=== PATIENT | male | born 1960 | race Caucasian/White ===

== ENCOUNTER 2016-11-05 18:27 | Inpatient (IN) | payer MEDICAID ==
[~2016-11-05] VITALS: Ht 170.1 cm; Wt 74.8 kg
--- NOTE | ~2016-11-05 | CON ---
[place], [place] REPORT OF CONSULTATION NAME: ADAM NICHOLAS [facility] #: [id number] UNIT #: [id number] ROOM: 416 DOCTOR: SHAMEKA GARCIA MD BIRTHDATE: [birth year] DOS: 11/06/2016 HISTORY OF PRESENT ILLNESS: The patient is a 56-year-old male patient who actually was told by a physician information services assistant who follows him in his home that his potassium is going up and that his kidney may be affected and that he may go into congestive heart failure, so that he came here. The reason I am consulted is the patient is complaining of abdominal pain, right upper quadrant from almost a month or two months. It comes and goes. He denies any association with food or any coughing or bending down or walking. There is no nausea, no vomiting, no fever, no history of gallbladder disease. He also has history of hernia on his abdominal wall and upper portion of the abdomen, which again according to him does not bother him too much, occasionally it hurts. He had an extensive workup done last night and yesterday with ultrasound of gallbladder, which report was okay and CT of the chest and abdomen unremarkable. PAST MEDICAL HISTORY: He has history of diabetes, history of heart problem and hypertension. He denies any history of any lung issues. ALLERGIES: According to him, no known allergies. FAMILY HISTORY: Unremarkable. SOCIAL HISTORY: Unremarkable. PHYSICAL EXAMINATION: GENERAL: Revealed the patient seems to be in no acute distress. VITAL SIGNS: Have been okay, although it may be that a little bit the heart rate is up. Respiration he seems to be dyspneic at least when he is walking. It looks like to me that the right eye may be artificial eye. LUNGS: Clear to auscultation and percussion. HEART: Sounds to me look okay, I do not hear a murmur. ABDOMEN: Protuberant. Shows small scars on upper portion of the abdomen. He is very tender in right upper quadrant, some rebound, no rigidity, no muscle guarding. No hepatosplenomegaly. There is obvious hernia in the epigastric area, feels soft and mushy. Also, he is tender in the left lower quadrant without much rebound or muscle guarding. RECTAL: Not done. EXTREMITIES: No pedal edema. LABORATORY DATA: Showed leukocytosis. His potassium is still up to 4.5. His bilirubin is normal. His lipase is 1142. IMPRESSION: Abdominal pain, right upper quadrant and left lower quadrant and a ____ small abdominal wall hernia, epigastrium. Ultrasound has been negative. I reviewed the CAT scan myself, to me it looks like he may have one area that looks like may be diverticulitis. So from my stand plan for this patient is a CCK-HIDA scan to see if there is any hyper or hypo function because clinically looks like his gallbladder, but all the radiological workup so far is negative. From my standpoint, we will treat him like empirically for possible diverticulitis. Once we get the CCK-HIDA scan, then I think we will go from [place], [place] REPORT OF CONSULTATION NAME: ADAM NICHOLAS UNIT #: [id number] ROOM: [facility] DOCTOR: SHAMEKA GARCIA MD BIRTHDATE: [birth year] there. We will follow with you. As for the abdominal wall hernia epigastrium, I think it is up to the patient whether he wants to get it fixed or not. Shameka Garcia MD CM:CONSTR:REPORT OF CONSULTATION 0959 11/07/16 0203 interface
--- NOTE | ~2016-11-05 | PR ---
[place], [place] PROGRESS NOTE [id number] UNIT #: [id number] ROOM: 416 DOCTOR: SHAMEKA GARCIA MD BIRTHDATE: [birth year] DOS: 11/07/2016 The patient was seen for reason of right upper quadrant abdominal pain, left lower quadrant abdominal pain. So far all the x-rays are unremarkable actually. Pain is persistent on the right upper quadrant. He is tender in the left lower quadrant. From my stand point, we have to rule out either biliary dyskinesia or hyperactive gallbladder. Clinically, I think that is what looks like. CCK HIDA scan has been ordered for tomorrow and hopefully would be done and then go from there. Overall, I do not see any acute abdomen at this time, but if things change then we will act accordingly. Shameka Garcia MD CM:PNTRANS [id number] SHAMEKA GARCIA MD 11/08/16 0117 interface
[~2016-11-05 18:27] MED LIST: ABILIFY5 MG PO; ACIPHEX20 MG PO; AMBIEN10 MG PO; AMOXICILLIN500 MG PO; ANTIVERT25 MG PO; ASPIR LOW81 MG PO; ASPIRIN ADULT L81 M2 PO; ASPIRIN ENTERIC81 M1 PO; ASPIRIN81 M1 PO; ATORVASTATIN CA80 M1 PO; Aciphex20 MG PO; BACTRIM DS 8001 TA1 PO; BUSPIRONE HCL10 MG PO; CARDIZEM60 MG PO; CEPHALEXIN500 M1 PO; CIPRO500 MG PO; CIPROFLOXACIN500 MG PO; CLONAZEPAM0.5 M2 PO; CLONAZEPAM1 MG PO; COMBIVENT RESPIM4 GM INH; COMPAZINE10 MG PO; CORDROL20 MG PO; DARVOCET N 1001 TAB PO; DOXYCYCLINE100 M3; EC NAPROSYN500 MG PO; EFFEXOR XR75 M1 PO; ENALAPRIL20 MG PO; ERY-TAB500 M1 PO; FIORICET 325 MG1 TAB PO; FLAGYL500 MG PO; Fioricet 325 MG1 TAB PO; GABAPENTIN400 MG PO; GABAPENTIN600 MG PO; GLIPIZIDE5 MG PO; GRALISE300 M1 PO; HUMALOG100 U/ML SC; HYDROCODONE BIT1 T11 PO; IBU800 M1 PO; INSULATARD H100 U/ML; LANTUS100 U/ML SC; LEVALBUTER1.25 MG/0. IH; LEVOFLOXACIN500 MG PO; LEXAPRO10 MG PO; LISINOPRIL2.5 MG PO; LISINOPRIL5 MG PO; LOMOTIL 0.025 M1 TA1 PO; MAGNESIUM OXID400 MG PO; MEDROL DOSEPAK4 MG PO; METFORMIN1000 MG PO; METFORMIN500 MG PO; METHOCARBAMOL750 M1 PO; METRONIDAZOLE500 M1 PO; MOBIC7.5 MG PO; MOTRIN800 MG PO; NABUMETONE500 M1 PO; NAPROSYN500 MG PO; NAPROXEN500 M1 PO; NATURE'S BLEND F1 MG PO; NEURONTIN300 MG PO; NEURONTIN400 MG PO; NITRO; NITROGLYCERIN SL; NITROGLYCERIN0.4 MG SL; NITROSTAT0.4 MG PO; NITROSTAT0.4 MG SL; NORCO 10-325 T1 EACH PO; NORCO 325 MG-101 TAB PO; NORCO 5-325 TA1 EACH PO; NOVOLIN 70/30 701 EA SC; NOVOLIN 70100 UNIT/1 SC; NOVOLOG 70/30 M10 ML SC; OMEPRAZOLE40 MG PO; PEPCID20 MG PO; PERCOCET 325 MG1 TA2 PO; PERCOCET 325 MG1 TAB PO; PHENERGAN25 M1 PO; PLAVIX75 M1 PO; PRAVACHOL80 M1 PO; PREVACID30 M1; PRILOSEC10 M1 PO; PRILOSEC20 MG PO; PRILOSEC40 M1 PO; PRINIVIL5 M1 PO; REQUIP0.5 MG PO; RESTORIL15 MG PO; ROBAXIN-750750 MG PO; ROBAXIN500 MG PO; ROPINIROLE HYD0.5 MG PO; ROPINIROLE HYDRO1 MG PO; SERTRALINE HYD100 MG PO; STOOL SOFTENER100 M3 PO; TOPROL XL25 MG PO; TOPROL XL50 M1 PO; TRAMADOL HCL50 MG PO; TRAZADONE HYDR100 MG PO; TRAZODONE100 MG PO; TRICOR145 MG PO; TRILIPIX45 MG PO; TYLENOL W/CODEI1 TA2 PO; ULTRAM50 MG PO; VANCOMYCIN IV; VANCOMYCIN1.25 GM/25 IV; VIBRAMYCIN100 MG PO; VICO10300 PO; VICODIN 5/500 505 MG PO; VICODIN ES 7501 TAB PO; VITAMIN C500 M4 PO; VITAMIN D50000 UNIT PO; ZANTAC150 MG PO; ZOFRAN ODT4 MG SL; ZOLOFT100 MG PO; Zofran4 MG PO
[2016-11-05 18:53] VITALS: BP 136/90
[2016-11-05] MEDS ORDERED: TYLENOL W/CODEI1 TA4 PO (18:59)
[2016-11-05 20:11] LABS: BASO # 0.1 10*3/uL (0.0-0.1); BASO % 0.7 % (0.0-1.0); EOS # 0.6 10*3/uL (0.0-0.4); EOS % 3.5 % (1.0-4.0); HEMATOCRIT 39.1 % (42.0-52.0); HEMOGLOBIN 12.8 g/dl (14.0-18.0); IG # 0.1 10*3/uL (0.0-0.1); LYMPH # 3.7 10*3/uL (1.3-4.4); LYMPH % 20.6 % (27.0-41.0); MEAN CORPUSCULAR HGB 30.8 pg (27.0-31.0); MEAN CORPUSCULAR HGB CONC 32.7 g/dl (33.0-37.0); MEAN PLATELET VOLUME 11.1 fl (9.6-12.3); MONO # 1.3 10*3/uL (0.1-1.0); MONO % 7.3 % (3.0-9.0); NEUT # 12.1 10*3/uL (2.3-7.9); NEUT % 67.1 % (47.0-73.0); PLATELET COUNT AUTOMATED 320 10*3/uL (130-400); RED BLOOD COUNT 4.16 10*6/uL (4.50-5.90); RED CELL DISTRI WIDTH 14.2 % (0-14.5)
[2016-11-05 20:20] LABS: INTERNATIONAL NORM RATIO 0.9 (2.0-3.5); PROTHROMBIN TIME 9.9 SECONDS (9.0-12.4)
[2016-11-05 20:28] LABS: ALBUMIN 3.2 gm/dl (3.1-4.5); BILIRUBIN, TOTAL 0.2 mg/dl (0.2-1.0); POTASSIUM 5.8 mmol/L (3.5-5.1); TOTAL PROTEIN 8.1 gm/dL (6.4-8.2)
[2016-11-05 20:29] LABS: CKMB 2.8 ng/ml (0.5-3.6); CPK 64 U/L (39-308); MAGNESIUM 1.9 mg/dL (1.5-2.1)
[2016-11-05 20:30] LABS: TROPONIN I < 0.015 ng/ml (<0.5)
[2016-11-05 21:27] LABS: BILIRUBIN NEGATIVE (NEGATIVE); BLOOD NEGATIVE (NEGATIVE); CLARITY CLEAR (CLEAR); COLOR YELLOW (YELLOW); GLUCOSE NEGATIVE (NEGATIVE); KETONE NEGATIVE (NEGATIVE); LEUKO ESTERASE NEGATIVE (NEGATIVE); NITRITE NEGATIVE (NEGATIVE); PROTEIN NEGATIVE (NEGATIVE); SPECIFIC GRAVITY <= 1.005 (1.005-1.030); UROBILINOGEN 0.2 E.U./dl (0.2-1.0)
[2016-11-05 21:35] LABS: RBC 0-2 rbc/hpf (0-2); URINE REFLEX COMMENT NO (NO); WBC 0-2 wbc/hpf (0-5)
[2016-11-05 22:30] VITALS: BP 132/90
[2016-11-06] VITALS (8 sets, daily range): BP systolic 96–139; BP diastolic 43–84
[2016-11-06 00:50] LABS: CKMB 2.5 ng/ml (0.5-3.6); CPK 52 U/L (39-308)
[2016-11-06 00:55] LABS: TROPONIN I < 0.015 ng/ml (<0.5)
[2016-11-06 05:54] LABS: BASO # 0.1 10*3/uL (0.0-0.1); BASO % 0.7 % (0.0-1.0); EOS # 0.5 10*3/uL (0.0-0.4); EOS % 3.4 % (1.0-4.0); HEMATOCRIT 35.2 % (42.0-52.0); HEMOGLOBIN 10.9 g/dl (14.0-18.0); IG # 0.1 10*3/uL (0.0-0.1); LYMPH # 3.8 10*3/uL (1.3-4.4); LYMPH % 26.5 % (27.0-41.0); MEAN CELL VOLUME 95.1 fl (80.0-94.0); MEAN CORPUSCULAR HGB 29.5 pg (27.0-31.0); MEAN PLATELET VOLUME 10.9 fl (9.6-12.3); MONO # 1.4 10*3/uL (0.1-1.0); MONO % 9.5 % (3.0-9.0); NEUT # 8.6 10*3/uL (2.3-7.9); NEUT % 59.1 % (47.0-73.0); PLATELET COUNT AUTOMATED 273 10*3/uL (130-400); RED CELL DISTRI WIDTH 14.3 % (0-14.5); WHITE BLOOD COUNT 14.5 10*3/uL (4.8-10.8)
[2016-11-06 06:11] LABS: CKMB 2.3 ng/ml (0.5-3.6); CPK 56 U/L (39-308)
[2016-11-06 06:12] LABS: TROPONIN I < 0.015 ng/ml (<0.5)
[2016-11-06 06:13] LABS: HEMOGLOBIN A1c 7.4 % (4.8-5.6)
[2016-11-06 06:37] LABS: BUN 18 mg/dl (7-24); CARBON DIOXIDE 26 mmol/L (21-32); CHLORIDE 110 mmol/L (98-107); CHOLESTEROL 158 mg/dL (<200); EST GLOM FILT AFRICAN AMERICAN > 60 ml/min; GLUCOSE 122 mg/dL (65-99); HDL CHOLESTEROL 32 mg/dl (40-60); LDL CHOLESTEROL 68 mg/dL (9-159); MAGNESIUM 1.8 mg/dL (1.5-2.1); PHOSPHOROUS 4.1 mg/dL (2.5-4.9); POTASSIUM 5.4 mmol/L (3.5-5.1); SODIUM 144 mmol/L (136-145); TRIGLYCERIDES 292 mg/dl (<150); VLDL CHOLESTEROL 58 mg/dL (6-40)
[2016-11-06 07:10] LABS: VITAMIN D, 25-HYDROXY 25.9 ng/mL (30-100)
[2016-11-06 07:11] LABS: FOLIC ACID 4.28 ng/mL (>5.38)
[2016-11-06 12:16] LABS: CKMB 2.1 ng/ml (0.5-3.6); CPK 61 U/L (39-308)
[2016-11-06 12:23] LABS: TROPONIN I < 0.015 ng/ml (<0.5)
[2016-11-06] MEDS ORDERED: IBU800 MG PO (14:03)
[2016-11-06] MEDS ORDERED: HYDROXYZINE HCL25 M1 PO (14:09)
[2016-11-07] VITALS: BP 109/64
[2016-11-07 06:37] LABS: BASO % 0.2 % (0.0-1.0); HEMATOCRIT 37.4 % (42.0-52.0); IG # 0.3 10*3/uL (0.0-0.1); LYMPH # 1.9 10*3/uL (1.3-4.4); LYMPH % 9.9 % (27.0-41.0); MEAN CELL VOLUME 93.7 fl (80.0-94.0); MEAN CORPUSCULAR HGB 30.1 pg (27.0-31.0); MEAN CORPUSCULAR HGB CONC 32.1 g/dl (33.0-37.0); MEAN PLATELET VOLUME 11.5 fl (9.6-12.3); MONO # 0.2 10*3/uL (0.1-1.0); NEUT % 87.6 % (47.0-73.0); PLATELET COUNT AUTOMATED 319 10*3/uL (130-400); RED BLOOD COUNT 3.99 10*6/uL (4.50-5.90); RED CELL DISTRI WIDTH 14.2 % (0-14.5); WHITE BLOOD COUNT 19.4 10*3/uL (4.8-10.8)
[2016-11-07 07:09] LABS: ALBUMIN 3.1 gm/dl (3.1-4.5); BILIRUBIN, TOTAL 0.2 mg/dl (0.2-1.0); MAGNESIUM 1.8 mg/dL (1.5-2.1); PHOSPHOROUS 3.5 mg/dL (2.5-4.9); POTASSIUM 4.5 mmol/L (3.5-5.1); TOTAL PROTEIN 7.6 gm/dL (6.4-8.2)
[2016-11-07 08:00] VITALS: BP 142/82
[2016-11-07 12:00] VITALS: BP 133/74
[2016-11-07] MEDS ORDERED: CHOLESTYRAMINE P4 GM PO (13:23)
[2016-11-07 16:00] VITALS: BP 144/72
[2016-11-07 20:00] VITALS: BP 151/87
[2016-11-08] VITALS: BP 157/86
[2016-11-08 06:45] LABS: HEMATOCRIT 34.8 % (42.0-52.0); HEMOGLOBIN 11.2 g/dl (14.0-18.0); MEAN CELL VOLUME 92.8 fl (80.0-94.0); MEAN CORPUSCULAR HGB 29.9 pg (27.0-31.0); MEAN CORPUSCULAR HGB CONC 32.2 g/dl (33.0-37.0); MEAN PLATELET VOLUME 11.3 fl (9.6-12.3); PLATELET COUNT AUTOMATED 300 10*3/uL (130-400); RED BLOOD COUNT 3.75 10*6/uL (4.50-5.90); RED CELL DISTRI WIDTH 14.2 % (0-14.5); WHITE BLOOD COUNT 17.6 10*3/uL (4.8-10.8)
[2016-11-08 07:09] LABS: LYMPHOCYTE # 0.5 10*3/uL (1.3-4.4); MONOCYTE # 0.2 10*3/uL (0.1-1.0); MYELOCYTES 1 % (0-0); NEUTROPHIL # 16.7 10*3/uL (2.3-7.9); NEUTROPHILS 95 % (47-73); TOTAL CELLS COUNTED 100 #CELLS
[2016-11-08 07:10] LABS: PLATELET SUFFICIENCY NORMAL (NORMAL)
[2016-11-08 07:18] LABS: ALBUMIN 3.2 gm/dl (3.1-4.5); ALKALINE PHOSPHATASE 193 U/L (45-117); BILIRUBIN, TOTAL 0.2 mg/dl (0.2-1.0); BUN 18 mg/dl (7-24); CARBON DIOXIDE 26 mmol/L (21-32); CHLORIDE 105 mmol/L (98-107); EST GLOM FILT AFRICAN AMERICAN > 60 ml/min; GLUCOSE 331 mg/dL (65-99); MAGNESIUM 1.8 mg/dL (1.5-2.1); PHOSPHOROUS 3.3 mg/dL (2.5-4.9); SGOT/AST 8 IU/L (3-35); SGPT/ALT 17 U/L (12-78); SODIUM 138 mmol/L (136-145); TOTAL PROTEIN 7.7 gm/dL (6.4-8.2)
[2016-11-08 07:28] LABS: POTASSIUM 5.6 mmol/L (3.5-5.1)
[2016-11-08 08:00] VITALS: BP 140/98
[2016-11-08 14:05] LABS: ORGANISM ID Not indicated. (.); SPECIMEN SOURCE Urine (.); STREPTOCOCCUS PNEUMONIAE AG Negative (Negative)
[2016-11-08 16:00] VITALS: BP 144/81
[2016-11-09 17:09] LABS: LEGIONELLA URINARY ANTIGEN Negative (Negative)
[2016-11-26] MEDS ORDERED: TOPROL XL100 MG PO (09:59)
[2016-12-02] MEDS ORDERED: HYDROCODONE BIT1 T11 PO (11:05)
== END 2016-11-08 18:08 | disposition home or self-care (01) | DRG 871 ==
LOC: ED 18:27 → EDHOLD 23:19 → 4E 23:19
PROVIDERS: Hospitalist; Internal Medicine; Nurse Practitioner Family; Student in an Organized Health Care Education/Training Program
DX: A41.9 Sepsis, unspecified organism (principal); N17.0 Acute kidney failure with tubular necrosis; K85.90 Acute pancreatitis without necrosis or infection, unspecified; E44.0 Moderate protein-calorie malnutrition; J44.1 Chronic obstructive pulmonary disease with (acute) exacerbation; R65.20 Severe sepsis without septic shock; E11.65 Type 2 diabetes mellitus with hyperglycemia; E83.51 Hypocalcemia; I73.9 Peripheral vascular disease, unspecified; I10 Essential (primary) hypertension; J44.9 Chronic obstructive pulmonary disease, unspecified; I25.10 Atherosclerotic heart disease of native coronary artery without angina pectoris; F32.9 Major depressive disorder, single episode, unspecified; F17.210 Nicotine dependence, cigarettes, uncomplicated; K21.9 Gastro-esophageal reflux disease without esophagitis; E78.2 Mixed hyperlipidemia; G25.81 Restless legs syndrome; E87.5 Hyperkalemia; D64.9 Anemia, unspecified; F41.1 Generalized anxiety disorder; F51.01 Primary insomnia; K29.50 Unspecified chronic gastritis without bleeding; I65.29 Occlusion and stenosis of unspecified carotid artery; E55.9 Vitamin D deficiency, unspecified; E78.1 Pure hyperglyceridemia; E53.8 Deficiency of other specified B group vitamins; Z68.25 Body mass index [BMI] 25.0-25.9, adult; Z79.02 Long term (current) use of antithrombotics/antiplatelets; Z79.4 Long term (current) use of insulin; Z79.82 Long term (current) use of aspirin; Z79.899 Other long term (current) drug therapy; Z95.1 Presence of aortocoronary bypass graft; Z86.73 Personal history of transient ischemic attack (TIA), and cerebral infarction without residual deficits; Z95.5 Presence of coronary angioplasty implant and graft; Z98.890 Other specified postprocedural states; Z88.8 Allergy status to other drugs, medicaments and biological substances; Z82.49 Family history of ischemic heart disease and other diseases of the circulatory system; Z83.3 Family history of diabetes mellitus; Z80.8 Family history of malignant neoplasm of other organs or systems

== ENCOUNTER 2016-11-13 16:50 | Emergency (ER) | payer MEDICAID ==
[~2016-11-13] VITALS: Ht 170.1 cm; Wt 74.8 kg
[~2016-11-13 16:50] MED LIST changes: +CHOLESTYRAMINE P4 GM PO; +HYDROXYZINE HCL25 M1 PO; +IBU800 MG PO; +TYLENOL W/CODEI1 TA4 PO
[2016-11-13 17:58] LABS: HEMATOCRIT 37.2 % (42.0-52.0); HEMOGLOBIN 12.3 g/dl (14.0-18.0); MEAN CELL VOLUME 91.9 fl (80.0-94.0); MEAN CORPUSCULAR HGB 30.4 pg (27.0-31.0); MEAN CORPUSCULAR HGB CONC 33.1 g/dl (33.0-37.0); MEAN PLATELET VOLUME 10.7 fl (9.6-12.3); PLATELET COUNT AUTOMATED 315 10*3/uL (130-400); RED BLOOD COUNT 4.05 10*6/uL (4.50-5.90); RED CELL DISTRI WIDTH 14.2 % (0-14.5)
[2016-11-13 18:13] LABS: ALBUMIN 3.2 gm/dl (3.1-4.5); ALKALINE PHOSPHATASE 173 U/L (45-117); BILIRUBIN, TOTAL 0.3 mg/dl (0.2-1.0); BUN 29 mg/dl (7-24); CARBON DIOXIDE 25 mmol/L (21-32); CHLORIDE 108 mmol/L (98-107); EST GLOM FILT AFRICAN AMERICAN > 60 ml/min; GLUCOSE 230 mg/dL (65-99); POTASSIUM 4.7 mmol/L (3.5-5.1); SGOT/AST 13 IU/L (3-35); SGPT/ALT 24 U/L (12-78); SODIUM 140 mmol/L (136-145); TOTAL PROTEIN 7.5 gm/dL (6.4-8.2)
[2016-11-13 18:21] LABS: EOSINOPHIL # 0.2 10*3/uL (0-0.4); EOSINOPHILS 1 % (1-4); MONOCYTE # 1.7 10*3/uL (0.1-1.0); NEUTROPHIL # 15.1 10*3/uL (2.3-7.9); NEUTROPHILS 72 % (47-73); PLATELET SUFFICIENCY NORMAL (NORMAL); TOTAL CELLS COUNTED 100 #CELLS
[2016-11-26] MEDS ORDERED: TOPROL XL100 MG PO (09:59)
[2016-12-02] MEDS ORDERED: HYDROCODONE BIT1 T11 PO (11:05)
== END 2016-11-13 20:10 | disposition left against medical advice (07) ==
LOC: ED 16:50
PROVIDERS: Nurse Practitioner Family
DX: R10.31 Right lower quadrant pain (principal); G89.29 Other chronic pain; F41.9 Anxiety disorder, unspecified; I25.10 Atherosclerotic heart disease of native coronary artery without angina pectoris; J44.9 Chronic obstructive pulmonary disease, unspecified; E11.9 Type 2 diabetes mellitus without complications; F32.9 Major depressive disorder, single episode, unspecified; K21.9 Gastro-esophageal reflux disease without esophagitis; E78.2 Mixed hyperlipidemia; D64.9 Anemia, unspecified; I10 Essential (primary) hypertension; M86.9 Osteomyelitis, unspecified; F17.200 Nicotine dependence, unspecified, uncomplicated; Z86.73 Personal history of transient ischemic attack (TIA), and cerebral infarction without residual deficits; Z79.4 Long term (current) use of insulin; Z88.6 Allergy status to analgesic agent; Z79.82 Long term (current) use of aspirin; Z79.899 Other long term (current) drug therapy

== ENCOUNTER 2017-01-28 17:46 | Inpatient (IN) | payer OTHER ==
[~2017-01-28] VITALS: Ht 170.1 cm; Wt 81.6 kg
[~2017-01-28 17:46] MED LIST changes: +TOPROL XL100 MG PO
[2017-01-28 18:07] LABS: BASO # 0.1 10*3/uL (0.0-0.1); BASO % 0.8 % (0.0-1.0); EOS # 0.4 10*3/uL (0.0-0.4); EOS % 2.4 % (1.0-4.0); HEMATOCRIT 34.7 % (42.0-52.0); HEMOGLOBIN 11.4 g/dl (14.0-18.0); IG # 0.2 10*3/uL (0.0-0.1); LYMPH # 3.1 10*3/uL (1.3-4.4); LYMPH % 18.2 % (27.0-41.0); MEAN CORPUSCULAR HGB 30.9 pg (27.0-31.0); MEAN CORPUSCULAR HGB CONC 32.9 g/dl (33.0-37.0); MEAN PLATELET VOLUME 10.9 fl (9.6-12.3); MONO # 1.3 10*3/uL (0.1-1.0); MONO % 7.7 % (3.0-9.0); NEUT # 11.8 10*3/uL (2.3-7.9); NEUT % 69.7 % (47.0-73.0); PLATELET COUNT AUTOMATED 266 10*3/uL (130-400); RED BLOOD COUNT 3.69 10*6/uL (4.50-5.90); RED CELL DISTRI WIDTH 14.6 % (0-14.5)
[2017-01-28 18:18] VITALS: BP 144/85
[2017-01-28 18:23] LABS: ALKALINE PHOSPHATASE 251 U/L (45-117); BILIRUBIN, TOTAL 0.1 mg/dl (0.2-1.0); BUN 17 mg/dl (7-24); CARBON DIOXIDE 28 mmol/L (21-32); CHLORIDE 106 mmol/L (98-107); EST GLOM FILT AFRICAN AMERICAN > 60 ml/min; GLUCOSE 306 mg/dL (65-99); POTASSIUM 5.3 mmol/L (3.5-5.1); SGOT/AST 15 IU/L (3-35); SGPT/ALT 22 U/L (12-78); SODIUM 138 mmol/L (136-145); TOTAL PROTEIN 7.3 gm/dL (6.4-8.2)
[2017-01-28 19:20] VITALS: BP 148/78
[2017-01-28 19:46] LABS: BILIRUBIN NEGATIVE (NEGATIVE); BLOOD NEGATIVE (NEGATIVE); CLARITY CLEAR (CLEAR); COLOR YELLOW (YELLOW); GLUCOSE 1+ (NEGATIVE); KETONE NEGATIVE (NEGATIVE); LEUKO ESTERASE NEGATIVE (NEGATIVE); NITRITE NEGATIVE (NEGATIVE); PROTEIN NEGATIVE (NEGATIVE); UROBILINOGEN 0.2 E.U./dl (0.2-1.0)
[2017-01-28 19:52] LABS: TROPONIN I < 0.015 ng/ml (<0.045)
[2017-01-28 19:53] LABS: BACTERIA 1+; RBC 0-2 rbc/hpf (0-2); URINE REFLEX COMMENT NO (NO); WBC 0-2 wbc/hpf (0-5)
[2017-01-28 20:00] VITALS: BP 124/86
[2017-01-28 22:00] VITALS: BP 124/86
[2017-01-29] VITALS: BP 103/59
[2017-01-29 06:58] LABS: BASO # 0.1 10*3/uL (0.0-0.1); BASO % 0.5 % (0.0-1.0); EOS # 0.4 10*3/uL (0.0-0.4); EOS % 2.8 % (1.0-4.0); HEMATOCRIT 34.2 % (42.0-52.0); IG # 0.2 10*3/uL (0.0-0.1); LYMPH # 3.4 10*3/uL (1.3-4.4); LYMPH % 22.6 % (27.0-41.0); MEAN CELL VOLUME 95.5 fl (80.0-94.0); MEAN CORPUSCULAR HGB 30.7 pg (27.0-31.0); MEAN CORPUSCULAR HGB CONC 32.2 g/dl (33.0-37.0); MEAN PLATELET VOLUME 11.5 fl (9.6-12.3); MONO # 1.2 10*3/uL (0.1-1.0); MONO % 8.2 % (3.0-9.0); NEUT # 9.6 10*3/uL (2.3-7.9); NEUT % 64.7 % (47.0-73.0); PLATELET COUNT AUTOMATED 274 10*3/uL (130-400); RED BLOOD COUNT 3.58 10*6/uL (4.50-5.90); RED CELL DISTRI WIDTH 14.6 % (0-14.5); WHITE BLOOD COUNT 14.9 10*3/uL (4.8-10.8)
[2017-01-29 07:18] LABS: PROTHROMBIN TIME 10.1 SECONDS (9.0-12.4)
[2017-01-29 07:33] LABS: ALKALINE PHOSPHATASE 238 U/L (45-117); BILIRUBIN, TOTAL 0.2 mg/dl (0.2-1.0); BUN 15 mg/dl (7-24); CARBON DIOXIDE 25 mmol/L (21-32); CHLORIDE 108 mmol/L (98-107); EST GLOM FILT AFRICAN AMERICAN > 60 ml/min; FREE T4 0.83 ng/dl (0.76-1.46); GLUCOSE 166 mg/dL (65-99); MAGNESIUM 1.9 mg/dL (1.5-2.1); PHOSPHOROUS 3.9 mg/dL (2.5-4.9); POTASSIUM 4.9 mmol/L (3.5-5.1); SGOT/AST 13 IU/L (3-35); SGPT/ALT 20 U/L (12-78); SODIUM 142 mmol/L (136-145); TOTAL PROTEIN 7.1 gm/dL (6.4-8.2)
[2017-01-29 07:40] LABS: VITAMIN D, 25-HYDROXY 23.6 ng/mL (30-100)
[2017-01-29 07:41] LABS: FOLIC ACID 9.26 ng/mL (>5.38)
[2017-01-29 08:00] VITALS: BP 94/62
[2017-01-29 12:00] VITALS: BP 108/62
[2017-01-29 16:00] VITALS: BP 91/65
[2017-01-29 20:00] VITALS: BP 108/56
[2017-01-30] VITALS: BP 97/69
[2017-01-30 07:10] LABS: BASO # 0.1 10*3/uL (0.0-0.1); BASO % 0.6 % (0.0-1.0); EOS # 0.3 10*3/uL (0.0-0.4); EOS % 2.2 % (1.0-4.0); HEMATOCRIT 31.7 % (42.0-52.0); IG # 0.1 10*3/uL (0.0-0.1); LYMPH # 2.9 10*3/uL (1.3-4.4); LYMPH % 21.6 % (27.0-41.0); MEAN CELL VOLUME 96.6 fl (80.0-94.0); MEAN CORPUSCULAR HGB 30.5 pg (27.0-31.0); MEAN CORPUSCULAR HGB CONC 31.5 g/dl (33.0-37.0); MEAN PLATELET VOLUME 11.5 fl (9.6-12.3); MONO # 1.2 10*3/uL (0.1-1.0); MONO % 8.7 % (3.0-9.0); NEUT # 8.9 10*3/uL (2.3-7.9); NEUT % 65.9 % (47.0-73.0); PLATELET COUNT AUTOMATED 223 10*3/uL (130-400); RED BLOOD COUNT 3.28 10*6/uL (4.50-5.90); RED CELL DISTRI WIDTH 14.8 % (0-14.5); WHITE BLOOD COUNT 13.4 10*3/uL (4.8-10.8)
[2017-01-30 07:37] LABS: ALBUMIN 2.7 gm/dl (3.1-4.5); BUN 15 mg/dl (7-24); CARBON DIOXIDE 24 mmol/L (21-32); CHLORIDE 111 mmol/L (98-107); GLUCOSE 135 mg/dL (65-99); MAGNESIUM 1.6 mg/dL (1.5-2.1); POTASSIUM 5.2 mmol/L (3.5-5.1); SODIUM 142 mmol/L (136-145)
[2017-01-30 07:41] LABS: ALKALINE PHOSPHATASE 237 U/L (45-117); BILIRUBIN, TOTAL 0.2 mg/dl (0.2-1.0); EST GLOM FILT AFRICAN AMERICAN > 60 ml/min; PHOSPHOROUS 2.9 mg/dL (2.5-4.9); SGOT/AST 22 IU/L (3-35); SGPT/ALT 24 U/L (12-78); TOTAL PROTEIN 6.5 gm/dL (6.4-8.2)
[2017-01-30 08:00] VITALS: BP 120/74
[2017-01-30 12:00] VITALS: BP 122/86
== END 2017-01-30 13:21 | disposition left against medical advice (07) | DRG 439 ==
LOC: ED 17:46 → EDHOLD 20:08 → 4E 20:21
PROVIDERS: Internal Medicine; Registered Nurse
DX: K85.90 Acute pancreatitis without necrosis or infection, unspecified (principal); R65.10 Systemic inflammatory response syndrome (SIRS) of non-infectious origin without acute organ dysfunction; E44.0 Moderate protein-calorie malnutrition; E11.22 Type 2 diabetes mellitus with diabetic chronic kidney disease; E11.51 Type 2 diabetes mellitus with diabetic peripheral angiopathy without gangrene; E87.5 Hyperkalemia; N18.3 Chronic kidney disease, stage 3 (moderate); J43.9 Emphysema, unspecified; D72.829 Elevated white blood cell count, unspecified; D72.810 Lymphocytopenia; I12.9 Hypertensive chronic kidney disease with stage 1 through stage 4 chronic kidney disease, or unspecified chronic kidney disease; D64.9 Anemia, unspecified; F32.9 Major depressive disorder, single episode, unspecified; I25.10 Atherosclerotic heart disease of native coronary artery without angina pectoris; F41.9 Anxiety disorder, unspecified; F17.210 Nicotine dependence, cigarettes, uncomplicated; Z53.21 Procedure and treatment not carried out due to patient leaving prior to being seen by health care provider; G25.81 Restless legs syndrome; K21.9 Gastro-esophageal reflux disease without esophagitis; G47.00 Insomnia, unspecified; E78.2 Mixed hyperlipidemia; E55.9 Vitamin D deficiency, unspecified; E66.3 Overweight; Z68.28 Body mass index [BMI] 28.0-28.9, adult; Z86.73 Personal history of transient ischemic attack (TIA), and cerebral infarction without residual deficits; Z90.49 Acquired absence of other specified parts of digestive tract; Z95.9 Presence of cardiac and vascular implant and graft, unspecified; Z95.1 Presence of aortocoronary bypass graft; Z95.5 Presence of coronary angioplasty implant and graft; Z88.6 Allergy status to analgesic agent; Z88.1 Allergy status to other antibiotic agents; Z82.49 Family history of ischemic heart disease and other diseases of the circulatory system; Z80.8 Family history of malignant neoplasm of other organs or systems; Z79.1 Long term (current) use of non-steroidal anti-inflammatories (NSAID); Z79.82 Long term (current) use of aspirin; Z79.4 Long term (current) use of insulin; Z79.899 Other long term (current) drug therapy

== ENCOUNTER 2017-02-26 10:28 | Inpatient (IN) | payer OTHER ==
[2017-02-26] VITALS (7 sets, daily range): BP systolic 94–126; BP diastolic 56–82
[~2017-02-26] VITALS: Ht 170.1 cm; Wt 81.8 kg
--- NOTE | ~2017-02-26 | WRIGHTHP ---
[place], [place] PATIENT HISTORY AND PHYSICAL EXAM NAME: ADAM NICHOLAS [facility] #: [id number] UNIT #: [id number] ROOM: 512 DOCTOR: BRIT REESE DO BIRTHDATE: [birth year] DOS: PRIMARY CARE PHYSICIAN: Dr. Chiquis Cantu. The patient was seen and evaluated with the resident on 02/26/2017. Please see the resident's note for further details. ASSESSMENT: 1. Sepsis. 2. Pneumonitis. 3. Abdominal pain. 4. Gastroenteritis. 5. Dehydration. 6. Acute renal failure with history of chronic kidney disease stage 3. 7. Leukocytosis. 8. Chronic obstructive pulmonary disease with acute exacerbation. 9. Coronary artery disease with history of coronary artery bypass graft in November 2015. There were complications during this surgery, which required multiple surgeries after this. 10. Peripheral vascular disease with history of lower extremity stent. 11. Diabetes mellitus type 2. 12. Tobacco abuse. 13. Hyperlipidemia. 14. History of carotid artery stenosis. 15. Anxiety. 16. Depression. PLAN: Continue broad spectrum antibiotics. Follow up on final cultures. Consult Surgery for the abdominal pain. Continue steroids and aerosol treatments. Continue pain control. BRIT REESE DO CM:HISPHYS:PATIENT HISTORY AND PHYSICAL EXAMINATION 38 58 BRIT REESE DO 02/26/17 1900 interface
[2017-02-26 11:10] LABS: BASO # 0.1 10*3/uL (0.0-0.1); BASO % 0.4 % (0.0-1.0); EOS # 0.5 10*3/uL (0.0-0.4); EOS % 3.3 % (1.0-4.0); HEMATOCRIT 36.5 % (42.0-52.0); HEMOGLOBIN 12.2 g/dl (14.0-18.0); IG # 0.1 10*3/uL (0.0-0.1); LYMPH # 2.5 10*3/uL (1.3-4.4); LYMPH % 17.1 % (27.0-41.0); MEAN CELL VOLUME 94.6 fl (80.0-94.0); MEAN CORPUSCULAR HGB 31.6 pg (27.0-31.0); MEAN CORPUSCULAR HGB CONC 33.4 g/dl (33.0-37.0); MONO # 1.1 10*3/uL (0.1-1.0); MONO % 7.9 % (3.0-9.0); NEUT # 10.2 10*3/uL (2.3-7.9); NEUT % 70.5 % (47.0-73.0); PLATELET COUNT AUTOMATED 261 10*3/uL (130-400); RED BLOOD COUNT 3.86 10*6/uL (4.50-5.90); RED CELL DISTRI WIDTH 13.7 % (0-14.5); WHITE BLOOD COUNT 14.4 10*3/uL (4.8-10.8)
[2017-02-26 11:20] LABS: ALBUMIN 3.2 gm/dl (3.1-4.5); BILIRUBIN, TOTAL 0.3 mg/dl (0.2-1.0); POTASSIUM 4.8 mmol/L (3.5-5.1); TOTAL PROTEIN 7.8 gm/dL (6.4-8.2)
[2017-02-26 12:36] LABS: BILIRUBIN NEGATIVE (NEGATIVE); BLOOD NEGATIVE (NEGATIVE); CLARITY CLEAR (CLEAR); COLOR YELLOW (YELLOW); GLUCOSE NEGATIVE (NEGATIVE); KETONE NEGATIVE (NEGATIVE); LEUKO ESTERASE NEGATIVE (NEGATIVE); NITRITE NEGATIVE (NEGATIVE); PH 5.5 (5.0-9.0); PROTEIN NEGATIVE (NEGATIVE); SPECIFIC GRAVITY <= 1.005 (1.005-1.030); UROBILINOGEN 0.2 E.U./dl (0.2-1.0)
[2017-02-26 12:44] LABS: EPITHELIAL CELLS 0-2; RBC 0-2 rbc/hpf (0-2); URINE REFLEX COMMENT NO (NO)
[2017-02-26] MEDS ORDERED: IBU800 M1 PO (16:36)
[2017-02-26] MEDS ORDERED: NEURONTIN400 MG PO (16:40)
[2017-02-26] MEDS ORDERED: METOPROLOL SUCC25 M2 PO (16:41)
[2017-02-27] VITALS: BP 101/68
[2017-02-27 06:33] LABS: BASO % 0.2 % (0.0-1.0); EOS % 0.1 % (1.0-4.0); HEMATOCRIT 33.2 % (42.0-52.0); IG # 0.2 10*3/uL (0.0-0.1); LYMPH % 6.9 % (27.0-41.0); MEAN CELL VOLUME 94.3 fl (80.0-94.0); MEAN CORPUSCULAR HGB 31.3 pg (27.0-31.0); MEAN CORPUSCULAR HGB CONC 33.1 g/dl (33.0-37.0); MEAN PLATELET VOLUME 11.1 fl (9.6-12.3); MONO # 0.3 10*3/uL (0.1-1.0); MONO % 1.9 % (3.0-9.0); NEUT # 12.5 10*3/uL (2.3-7.9); NEUT % 89.6 % (47.0-73.0); PLATELET COUNT AUTOMATED 226 10*3/uL (130-400); RED BLOOD COUNT 3.52 10*6/uL (4.50-5.90); RED CELL DISTRI WIDTH 13.5 % (0-14.5)
[2017-02-27 06:39] LABS: ALBUMIN 2.9 gm/dl (3.1-4.5); ALKALINE PHOSPHATASE 304 U/L (45-117); BILIRUBIN, TOTAL 0.2 mg/dl (0.2-1.0); BUN 20 mg/dl (7-24); CARBON DIOXIDE 22 mmol/L (21-32); CHLORIDE 108 mmol/L (98-107); CHOLESTEROL 176 mg/dL (<200); EST GLOM FILT AFRICAN AMERICAN > 60 ml/min; GLUCOSE 298 mg/dL (65-99); HDL CHOLESTEROL 35 mg/dl (40-60); LDL CHOLESTEROL 87 mg/dL (9-159); MAGNESIUM 1.7 mg/dL (1.5-2.1); POTASSIUM 5.1 mmol/L (3.5-5.1); SGOT/AST 18 IU/L (3-35); SGPT/ALT 26 U/L (12-78); SODIUM 136 mmol/L (136-145); TOTAL PROTEIN 7.1 gm/dL (6.4-8.2); TRIGLYCERIDES 270 mg/dl (<150); VLDL CHOLESTEROL 54 mg/dL (6-40)
[2017-02-27 06:44] LABS: THYROID STIM HORMONE (HS) 0.337 uIU/ml (0.358-4.75)
[2017-02-27 06:56] LABS: HEMOGLOBIN A1c 8.8 % (4.8-5.6)
[2017-02-27 08:00] VITALS: BP 122/62
[2017-02-27 12:00] VITALS: BP 138/78
[2017-02-27 16:00] VITALS: BP 99/69
[2017-02-27 20:00] VITALS: BP 119/69
[2017-02-28] VITALS: BP 107/70
[2017-02-28 06:37] LABS: BASO % 0.1 % (0.0-1.0); HEMATOCRIT 28.8 % (42.0-52.0); HEMOGLOBIN 9.4 g/dl (14.0-18.0); IG # 0.2 10*3/uL (0.0-0.1); LYMPH # 1.1 10*3/uL (1.3-4.4); LYMPH % 8.1 % (27.0-41.0); MEAN CORPUSCULAR HGB CONC 32.6 g/dl (33.0-37.0); MEAN PLATELET VOLUME 10.8 fl (9.6-12.3); MONO # 0.7 10*3/uL (0.1-1.0); MONO % 4.9 % (3.0-9.0); NEUT # 12.1 10*3/uL (2.3-7.9); NEUT % 85.2 % (47.0-73.0); PLATELET COUNT AUTOMATED 249 10*3/uL (130-400); RED BLOOD COUNT 3.03 10*6/uL (4.50-5.90); RED CELL DISTRI WIDTH 14.1 % (0-14.5); WHITE BLOOD COUNT 14.2 10*3/uL (4.8-10.8)
[2017-02-28 07:02] LABS: ALBUMIN 2.8 gm/dl (3.1-4.5); ALKALINE PHOSPHATASE 229 U/L (45-117); BILIRUBIN, TOTAL 0.2 mg/dl (0.2-1.0); BUN 21 mg/dl (7-24); C-REACTIVE PROTEIN 2.51 MG/DL (0-0.3); CARBON DIOXIDE 22 mmol/L (21-32); CHLORIDE 115 mmol/L (98-107); EST GLOM FILT AFRICAN AMERICAN > 60 ml/min; GLUCOSE 185 mg/dL (65-99); MAGNESIUM 1.8 mg/dL (1.5-2.1); SGOT/AST 15 IU/L (3-35); SGPT/ALT 22 U/L (12-78); SODIUM 141 mmol/L (136-145); TOTAL PROTEIN 6.5 gm/dL (6.4-8.2)
[2017-02-28 08:00] VITALS: BP 106/83
[2017-02-28 12:00] VITALS: BP 140/76
[2017-02-28 16:00] VITALS: BP 134/70
[2017-02-28 20:00] VITALS: BP 98/68
[2017-03-01] VITALS: BP 135/78
[2017-03-01 08:00] VITALS: BP 116/72; BP 140/82
[2017-03-01 12:00] VITALS: BP 133/91
[2017-03-01] MEDS ORDERED: FLAGYL500 MG PO (14:24)
[2017-03-01] MEDS ORDERED: PREDNISONE10 MG PO (14:24)
[2017-03-01] MEDS ORDERED: LEVAQUIN750 M1 PO (14:24)
[2017-03-01] MEDS ORDERED: OXYCODONE HCL5 MG PO (14:24)
== END 2017-03-01 15:23 | disposition home or self-care (01) | DRG 871 ==
LOC: ED 10:28 → 5E 14:45 → EDHOLD 14:45 → 5E 15:14
PROVIDERS: Emergency Medicine; Hospitalist
DX: A41.9 Sepsis, unspecified organism (principal); J18.9 Pneumonia, unspecified organism; N17.0 Acute kidney failure with tubular necrosis; E11.22 Type 2 diabetes mellitus with diabetic chronic kidney disease; N18.3 Chronic kidney disease, stage 3 (moderate); E11.51 Type 2 diabetes mellitus with diabetic peripheral angiopathy without gangrene; J44.0 Chronic obstructive pulmonary disease with (acute) lower respiratory infection; E44.0 Moderate protein-calorie malnutrition; J44.1 Chronic obstructive pulmonary disease with (acute) exacerbation; K52.9 Noninfective gastroenteritis and colitis, unspecified; I25.10 Atherosclerotic heart disease of native coronary artery without angina pectoris; F32.9 Major depressive disorder, single episode, unspecified; F41.9 Anxiety disorder, unspecified; I12.9 Hypertensive chronic kidney disease with stage 1 through stage 4 chronic kidney disease, or unspecified chronic kidney disease; K21.9 Gastro-esophageal reflux disease without esophagitis; E78.2 Mixed hyperlipidemia; E66.3 Overweight; F17.210 Nicotine dependence, cigarettes, uncomplicated; D64.9 Anemia, unspecified; E86.0 Dehydration; Z86.73 Personal history of transient ischemic attack (TIA), and cerebral infarction without residual deficits; Z90.49 Acquired absence of other specified parts of digestive tract; Z79.4 Long term (current) use of insulin; Z95.5 Presence of coronary angioplasty implant and graft; Z80.9 Family history of malignant neoplasm, unspecified; Z82.49 Family history of ischemic heart disease and other diseases of the circulatory system; Z83.3 Family history of diabetes mellitus; Z88.1 Allergy status to other antibiotic agents; Z88.6 Allergy status to analgesic agent; Z79.82 Long term (current) use of aspirin; Z79.899 Other long term (current) drug therapy; Z79.1 Long term (current) use of non-steroidal anti-inflammatories (NSAID); Z68.28 Body mass index [BMI] 28.0-28.9, adult

== ENCOUNTER 2017-04-16 11:41 | Emergency (ER) | payer OTHER ==
[~2017-04-16] VITALS: Ht 170.1 cm; Wt 81.6 kg
[~2017-04-16 11:41] MED LIST changes: +LEVAQUIN750 M1 PO; +METOPROLOL SUCC25 M2 PO; +NEURONTIN100 MG PO; +OXYCODONE HCL5 MG PO; +PREDNISONE10 MG PO
[2017-04-16] MEDS ORDERED: NATURE'S BLEN5000 IU PO (11:51)
[2017-04-16] MEDS ORDERED: ATORVASTATIN CA80 M1 PO (11:54)
[2017-04-16] MEDS ORDERED: TEMAZEPAM30 MG PO (11:55)
== END 2017-04-16 13:31 | disposition home or self-care (01) ==
LOC: ED 11:41
DX: S80.11XA Contusion of right lower leg, initial encounter (principal); I25.10 Atherosclerotic heart disease of native coronary artery without angina pectoris; J44.9 Chronic obstructive pulmonary disease, unspecified; I12.9 Hypertensive chronic kidney disease with stage 1 through stage 4 chronic kidney disease, or unspecified chronic kidney disease; N18.3 Chronic kidney disease, stage 3 (moderate); K21.9 Gastro-esophageal reflux disease without esophagitis; E78.2 Mixed hyperlipidemia; F17.200 Nicotine dependence, unspecified, uncomplicated; Z88.1 Allergy status to other antibiotic agents; Z79.899 Other long term (current) drug therapy; Z79.82 Long term (current) use of aspirin; Z86.73 Personal history of transient ischemic attack (TIA), and cerebral infarction without residual deficits; W01.0XXA Fall on same level from slipping, tripping and stumbling without subsequent striking against object, initial encounter; Y93.01 Activity, walking, marching and hiking; Y92.89 Other specified places as the place of occurrence of the external cause; Y99.8 Other external cause status

== ENCOUNTER 2017-04-20 19:48 | Inpatient (IN) | payer OTHER ==
[~2017-04-20] VITALS: Ht 170.1 cm; Wt 78.6 kg
[2017-04-20 19:48] VITALS: BP 121/85
[~2017-04-20 19:48] MED LIST changes: +NATURE'S BLEN5000 IU PO; +TEMAZEPAM30 MG PO
[2017-04-20 20:08] LABS: BASO # 0.1 10*3/uL (0.0-0.1); BASO % 0.8 % (0.0-1.0); EOS # 0.5 10*3/uL (0.0-0.4); HEMATOCRIT 39.2 % (42.0-52.0); HEMOGLOBIN 13.1 g/dl (14.0-18.0); IG # 0.2 10*3/uL (0.0-0.1); LYMPH # 2.5 10*3/uL (1.3-4.4); LYMPH % 16.5 % (27.0-41.0); MEAN CELL VOLUME 90.7 fl (80.0-94.0); MEAN CORPUSCULAR HGB 30.3 pg (27.0-31.0); MEAN CORPUSCULAR HGB CONC 33.4 g/dl (33.0-37.0); MEAN PLATELET VOLUME 10.7 fl (9.6-12.3); MONO # 1.3 10*3/uL (0.1-1.0); MONO % 8.5 % (3.0-9.0); NEUT # 10.7 10*3/uL (2.3-7.9); NEUT % 70.1 % (47.0-73.0); PLATELET COUNT AUTOMATED 264 10*3/uL (130-400); RED BLOOD COUNT 4.32 10*6/uL (4.50-5.90); RED CELL DISTRI WIDTH 13.2 % (0-14.5); WHITE BLOOD COUNT 15.3 10*3/uL (4.8-10.8)
[2017-04-20 20:18] LABS: PROTHROMBIN TIME 10.1 SECONDS (9.0-12.4)
[2017-04-20] MEDS ORDERED: VITAMIN D50000 I3 PO (20:22)
[2017-04-20 20:24] LABS: ALKALINE PHOSPHATASE 288 U/L (45-117); BILIRUBIN, TOTAL 0.2 mg/dl (0.2-1.0); BUN 17 mg/dl (7-24); CARBON DIOXIDE 27 mmol/L (21-32); CHLORIDE 102 mmol/L (98-107); EST GLOM FILT AFRICAN AMERICAN > 60 ml/min; GLUCOSE 289 mg/dL (65-99); MAGNESIUM 1.9 mg/dL (1.5-2.1); POTASSIUM 4.4 mmol/L (3.5-5.1); SGOT/AST 16 IU/L (3-35); SGPT/ALT 27 U/L (12-78); SODIUM 137 mmol/L (136-145); TOTAL PROTEIN 7.4 gm/dL (6.4-8.2)
[2017-04-20] MEDS ORDERED: OMEPRAZOLE20 M2 PO (20:24)
[2017-04-20] MEDS ORDERED: SERTRALINE HYD100 MG PO (20:24)
[2017-04-20] MEDS ORDERED: KLONOPIN0.5 MG PO (20:26)
[2017-04-20] MEDS ORDERED: RESTORIL15 MG PO (20:35)
[2017-04-20 21:04] VITALS: BP 130/82
[2017-04-20 21:09] LABS: BILIRUBIN NEGATIVE (NEGATIVE); BLOOD NEGATIVE (NEGATIVE); CLARITY CLEAR (CLEAR); COLOR YELLOW (YELLOW); GLUCOSE TRACE (NEGATIVE); KETONE NEGATIVE (NEGATIVE); LEUKO ESTERASE NEGATIVE (NEGATIVE); NITRITE NEGATIVE (NEGATIVE); PH 5.5 (5.0-9.0); PROTEIN NEGATIVE (NEGATIVE); SPECIFIC GRAVITY 1.015 (1.005-1.030)
[2017-04-20 21:18] LABS: RBC 0-2 rbc/hpf (0-2); URINE REFLEX COMMENT NO (NO)
[2017-04-20 21:19] LABS: BACTERIA TRACE; EPITHELIAL CELLS 0-2
[2017-04-20 21:48] VITALS: BP 137/87
[2017-04-20 22:20] VITALS: BP 133/91
[2017-04-21] VITALS: BP 150/94
[2017-04-21 06:43] LABS: BASO # 0.1 10*3/uL (0.0-0.1); BASO % 0.7 % (0.0-1.0); EOS # 0.5 10*3/uL (0.0-0.4); EOS % 3.2 % (1.0-4.0); HEMATOCRIT 35.5 % (42.0-52.0); HEMOGLOBIN 11.6 g/dl (14.0-18.0); IG # 0.2 10*3/uL (0.0-0.1); LYMPH # 3.4 10*3/uL (1.3-4.4); LYMPH % 22.6 % (27.0-41.0); MEAN CELL VOLUME 93.2 fl (80.0-94.0); MEAN CORPUSCULAR HGB 30.4 pg (27.0-31.0); MEAN CORPUSCULAR HGB CONC 32.7 g/dl (33.0-37.0); MEAN PLATELET VOLUME 10.9 fl (9.6-12.3); MONO # 1.4 10*3/uL (0.1-1.0); MONO % 9.4 % (3.0-9.0); NEUT # 9.4 10*3/uL (2.3-7.9); PLATELET COUNT AUTOMATED 254 10*3/uL (130-400); RED BLOOD COUNT 3.81 10*6/uL (4.50-5.90); RED CELL DISTRI WIDTH 13.4 % (0-14.5)
[2017-04-21 07:27] LABS: ALBUMIN 2.6 gm/dl (3.1-4.5); BUN 17 mg/dl (7-24); CARBON DIOXIDE 25 mmol/L (21-32); CHLORIDE 107 mmol/L (98-107); GLUCOSE 231 mg/dL (65-99); MAGNESIUM 1.8 mg/dL (1.5-2.1); SODIUM 140 mmol/L (136-145)
[2017-04-21 07:36] LABS: ALKALINE PHOSPHATASE 244 U/L (45-117); BILIRUBIN, TOTAL 0.3 mg/dl (0.2-1.0); CHOLESTEROL 232 mg/dL (<200); EST GLOM FILT AFRICAN AMERICAN > 60 ml/min; FREE T4 1.03 ng/dl (0.76-1.46); HDL CHOLESTEROL 27 mg/dl (40-60); PHOSPHOROUS 3.4 mg/dL (2.5-4.9); SGOT/AST 13 IU/L (3-35); SGPT/ALT 22 U/L (12-78); TOTAL PROTEIN 6.6 gm/dL (6.4-8.2); TRIGLYCERIDES 611 mg/dl (<150)
[2017-04-21 07:42] LABS: VITAMIN D, 25-HYDROXY 23.8 ng/mL (30-100)
[2017-04-21 07:43] LABS: FOLIC ACID 6.27 ng/mL (>5.38)
[2017-04-21 08:00] VITALS: BP 111/74; BP 116/72
[2017-04-21 12:00] VITALS: BP 116/78
[2017-04-21 16:00] VITALS: BP 136/71
[2017-04-21 20:00] VITALS: BP 143/89
[2017-04-22] VITALS: BP 135/79
[2017-04-22 06:22] LABS: BASO # 0.1 10*3/uL (0.0-0.1); BASO % 0.8 % (0.0-1.0); EOS # 0.6 10*3/uL (0.0-0.4); EOS % 4.5 % (1.0-4.0); HEMOGLOBIN 11.4 g/dl (14.0-18.0); IG # 0.1 10*3/uL (0.0-0.1); LYMPH % 22.2 % (27.0-41.0); MEAN CELL VOLUME 92.3 fl (80.0-94.0); MEAN CORPUSCULAR HGB 30.1 pg (27.0-31.0); MEAN CORPUSCULAR HGB CONC 32.6 g/dl (33.0-37.0); MEAN PLATELET VOLUME 10.9 fl (9.6-12.3); MONO # 1.2 10*3/uL (0.1-1.0); NEUT # 8.4 10*3/uL (2.3-7.9); NEUT % 62.5 % (47.0-73.0); PLATELET COUNT AUTOMATED 246 10*3/uL (130-400); RED BLOOD COUNT 3.79 10*6/uL (4.50-5.90); RED CELL DISTRI WIDTH 13.4 % (0-14.5); WHITE BLOOD COUNT 13.5 10*3/uL (4.8-10.8)
[2017-04-22 06:42] LABS: BUN 15 mg/dl (7-24); C-REACTIVE PROTEIN 2.58 MG/DL (0-0.3); CARBON DIOXIDE 28 mmol/L (21-32); CHLORIDE 107 mmol/L (98-107); EST GLOM FILT AFRICAN AMERICAN > 60 ml/min; GLUCOSE 78 mg/dL (65-99); POTASSIUM 4.2 mmol/L (3.5-5.1); SODIUM 142 mmol/L (136-145)
[2017-04-22 08:00] VITALS: BP 122/69
[2017-04-22] MEDS ORDERED: BACTROBAN OINT0.9 GM T (10:41)
[2017-04-22] MEDS ORDERED: DOXYCYCLINE MO100 M1 PO (10:41)
== END 2017-04-22 11:22 | disposition home or self-care (01) | DRG 871 ==
LOC: ED 19:48 → 5E 21:12 → EDHOLD 21:12 → 5E 21:21
PROVIDERS: Family Medicine; Hospitalist; Internal Medicine Hospice and Palliative Medicine; Nurse Practitioner Family
DX: A41.9 Sepsis, unspecified organism (principal); E43 Unspecified severe protein-calorie malnutrition; N18.3 Chronic kidney disease, stage 3 (moderate); L02.213 Cutaneous abscess of chest wall; L03.313 Cellulitis of chest wall; R07.9 Chest pain, unspecified; I25.119 Atherosclerotic heart disease of native coronary artery with unspecified angina pectoris; F41.1 Generalized anxiety disorder; J44.9 Chronic obstructive pulmonary disease, unspecified; F32.9 Major depressive disorder, single episode, unspecified; Z88.6 Allergy status to analgesic agent; Z88.1 Allergy status to other antibiotic agents; I12.9 Hypertensive chronic kidney disease with stage 1 through stage 4 chronic kidney disease, or unspecified chronic kidney disease; K21.9 Gastro-esophageal reflux disease without esophagitis; Z90.49 Acquired absence of other specified parts of digestive tract; Z71.6 Tobacco abuse counseling; E78.2 Mixed hyperlipidemia; Z82.49 Family history of ischemic heart disease and other diseases of the circulatory system; K43.9 Ventral hernia without obstruction or gangrene; Z68.27 Body mass index [BMI] 27.0-27.9, adult

== ENCOUNTER 2017-05-29 12:02 | Emergency (ER) | payer OTHER ==
[~2017-05-29] VITALS: Ht 170.1 cm; Wt 81.6 kg
[~2017-05-29 12:02] MED LIST changes: +BACTROBAN OINT0.9 GM T; +DOXYCYCLINE MO100 M1 PO; +KLONOPIN0.5 MG PO; +OMEPRAZOLE20 M2 PO; +VITAMIN D50000 I3 PO
[2017-05-29 12:24] LABS: BASO # 0.1 10*3/uL (0.0-0.1); BASO % 0.7 % (0.0-1.0); EOS # 0.5 10*3/uL (0.0-0.4); HEMATOCRIT 35.9 % (42.0-52.0); IG # 0.2 10*3/uL (0.0-0.1); LYMPH # 3.9 10*3/uL (1.3-4.4); LYMPH % 23.4 % (27.0-41.0); MEAN CELL VOLUME 92.8 fl (80.0-94.0); MEAN CORPUSCULAR HGB CONC 33.4 g/dl (33.0-37.0); MEAN PLATELET VOLUME 10.9 fl (9.6-12.3); MONO # 1.1 10*3/uL (0.1-1.0); MONO % 6.9 % (3.0-9.0); NEUT # 10.8 10*3/uL (2.3-7.9); PLATELET COUNT AUTOMATED 298 10*3/uL (130-400); RED BLOOD COUNT 3.87 10*6/uL (4.50-5.90); RED CELL DISTRI WIDTH 14.5 % (0-14.5); WHITE BLOOD COUNT 16.6 10*3/uL (4.8-10.8)
[2017-05-29 12:38] LABS: PROTHROMBIN TIME 10.1 SECONDS (9.0-12.4)
[2017-05-29 12:43] LABS: ALBUMIN 3.1 gm/dl (3.1-4.5); ALKALINE PHOSPHATASE 229 U/L (45-117); BILIRUBIN, TOTAL 0.3 mg/dl (0.2-1.0); BUN 19 mg/dl (7-24); CARBON DIOXIDE 23 mmol/L (21-32); CHLORIDE 106 mmol/L (98-107); EST GLOM FILT AFRICAN AMERICAN > 60 ml/min; GLUCOSE 215 mg/dL (65-99); MAGNESIUM 1.7 mg/dL (1.5-2.1); POTASSIUM 4.7 mmol/L (3.5-5.1); SGOT/AST 28 IU/L (3-35); SGPT/ALT 29 U/L (12-78); SODIUM 135 mmol/L (136-145); TOTAL PROTEIN 7.3 gm/dL (6.4-8.2)
[2017-05-29 12:44] LABS: TROPONIN I < 0.015 ng/ml (<0.045)
[2017-05-29] MEDS ORDERED: ZANTAC 300300 MG PO (14:45)
== END 2017-05-29 16:05 | disposition home or self-care (01) ==
LOC: ED 12:02
PROVIDERS: Emergency Medicine
DX: R07.9 Chest pain, unspecified (principal); K21.9 Gastro-esophageal reflux disease without esophagitis; I10 Essential (primary) hypertension; E78.5 Hyperlipidemia, unspecified; I25.10 Atherosclerotic heart disease of native coronary artery without angina pectoris; J44.9 Chronic obstructive pulmonary disease, unspecified; I12.9 Hypertensive chronic kidney disease with stage 1 through stage 4 chronic kidney disease, or unspecified chronic kidney disease; N18.3 Chronic kidney disease, stage 3 (moderate); E78.2 Mixed hyperlipidemia; F17.200 Nicotine dependence, unspecified, uncomplicated; Z88.1 Allergy status to other antibiotic agents; Z88.6 Allergy status to analgesic agent; Z79.899 Other long term (current) drug therapy; Z86.73 Personal history of transient ischemic attack (TIA), and cerebral infarction without residual deficits; Z95.1 Presence of aortocoronary bypass graft

== ENCOUNTER 2017-07-11 20:29 | Emergency (ER) | payer OTHER ==
[~2017-07-11] VITALS: Ht 167.6 cm; Wt 81.6 kg
[~2017-07-11 20:29] MED LIST changes: +ZANTAC 300300 MG PO
[2017-07-11 20:35] VITALS: BP 172/119
[2017-07-11 20:46] LABS: BASO # 0.1 10*3/uL (0.0-0.1); BASO % 0.7 % (0.0-1.0); EOS # 0.4 10*3/uL (0.0-0.4); EOS % 2.5 % (1.0-4.0); HEMATOCRIT 37.3 % (42.0-52.0); HEMOGLOBIN 12.3 g/dl (14.0-18.0); LYMPH # 3.1 10*3/uL (1.3-4.4); LYMPH % 20.7 % (27.0-41.0); MEAN CELL VOLUME 93.7 fl (80.0-94.0); MEAN CORPUSCULAR HGB 30.9 pg (27.0-31.0); MEAN PLATELET VOLUME 11.5 fl (9.6-12.3); MONO # 1.4 10*3/uL (0.1-1.0); MONO % 9.6 % (3.0-9.0); NEUT # 9.9 10*3/uL (2.3-7.9); NEUT % 65.9 % (47.0-73.0); PLATELET COUNT AUTOMATED 252 10*3/uL (130-400); RED BLOOD COUNT 3.98 10*6/uL (4.50-5.90); RED CELL DISTRI WIDTH 13.8 % (0-14.5); WHITE BLOOD COUNT 15.1 10*3/uL (4.8-10.8)
[2017-07-11 21:03] LABS: ALBUMIN 3.3 gm/dl (3.1-4.5); ALKALINE PHOSPHATASE 218 U/L (45-117); BUN 21 mg/dl (7-24); CHLORIDE 105 mmol/L (98-107); CREATININE 1.62 mg/dL (0.70-1.30); POTASSIUM 5.2 mmol/L (3.5-5.1); SGOT/AST 28 IU/L (3-35); SGPT/ALT 22 U/L (12-78); SODIUM 137 mmol/L (136-145); TOTAL PROTEIN 7.7 gm/dL (6.4-8.2)
[2017-07-11 21:07] LABS: TROPONIN I < 0.015 ng/ml (<0.045)
[2017-07-11 22:57] VITALS: BP 75/54
[2017-07-13] MEDS ORDERED: TYLENOL WITH C1 EACH PO (17:34)
[2017-07-13] MEDS ORDERED: NEURONTIN400 MG PO (22:19)
[2017-07-13] MEDS ORDERED: LANTUS SOL100 UNIT/1 SQ (22:19)
[2017-07-13] MEDS ORDERED: VITAMIN D50000 UNIT PO (22:20)
[2017-07-13] MEDS ORDERED: TRAZODONE HYDR100 MG PO (22:20)
== END 2017-07-12 01:10 | disposition left against medical advice (07) ==
LOC: ED 20:29 → EDHOLD 23:52 → ED 07-12 01:10
PROVIDERS: Emergency Medicine Emergency Medical Services
DX: A41.9 Sepsis, unspecified organism (principal); I95.9 Hypotension, unspecified; R07.89 Other chest pain; F17.200 Nicotine dependence, unspecified, uncomplicated; I25.10 Atherosclerotic heart disease of native coronary artery without angina pectoris; I12.9 Hypertensive chronic kidney disease with stage 1 through stage 4 chronic kidney disease, or unspecified chronic kidney disease; N18.3 Chronic kidney disease, stage 3 (moderate); K21.9 Gastro-esophageal reflux disease without esophagitis; E78.2 Mixed hyperlipidemia; E66.3 Overweight; Z86.73 Personal history of transient ischemic attack (TIA), and cerebral infarction without residual deficits; Z68.29 Body mass index [BMI] 29.0-29.9, adult; Z90.49 Acquired absence of other specified parts of digestive tract; Z98.890 Other specified postprocedural states; Z95.1 Presence of aortocoronary bypass graft; Z95.5 Presence of coronary angioplasty implant and graft; Z88.6 Allergy status to analgesic agent; Z88.1 Allergy status to other antibiotic agents; Z79.899 Other long term (current) drug therapy

== ENCOUNTER 2017-07-13 15:58 | Inpatient (IN) | payer OTHER ==
[~2017-07-13] VITALS: Ht 170.1 cm; Wt 85.3 kg
[2017-07-13 16:14] VITALS: BP 137/102
[2017-07-13 17:04] LABS: BASO # 0.1 10*3/uL (0.0-0.1); BASO % 0.6 % (0.0-1.0); EOS # 0.2 10*3/uL (0.0-0.4); EOS % 1.9 % (1.0-4.0); HEMATOCRIT 33.2 % (42.0-52.0); HEMOGLOBIN 10.7 g/dl (14.0-18.0); LYMPH # 1.9 10*3/uL (1.3-4.4); MEAN CELL VOLUME 95.1 fl (80.0-94.0); MEAN CORPUSCULAR HGB 30.7 pg (27.0-31.0); MEAN CORPUSCULAR HGB CONC 32.2 g/dl (33.0-37.0); MEAN PLATELET VOLUME 11.5 fl (9.6-12.3); MONO # 1.3 10*3/uL (0.1-1.0); MONO % 11.8 % (3.0-9.0); NEUT # 7.7 10*3/uL (2.3-7.9); NEUT % 68.2 % (47.0-73.0); PLATELET COUNT AUTOMATED 212 10*3/uL (130-400); RED BLOOD COUNT 3.49 10*6/uL (4.50-5.90); RED CELL DISTRI WIDTH 14.3 % (0-14.5); WHITE BLOOD COUNT 11.3 10*3/uL (4.8-10.8)
--- NOTE | 2017-07-13 17:10 | NUR ---
INFORMED THAT PT IS GOING TO BE AN EDHOLD FOR A LENGTH OF UNKNOWN TIME.
[2017-07-13 17:21] VITALS: BP 98/56
[2017-07-13 17:23] LABS: ALBUMIN 3.1 gm/dl (3.1-4.5); CREATININE 1.71 mg/dL (0.70-1.30); TOTAL PROTEIN 7.1 gm/dL (6.4-8.2)
[2017-07-13 17:25] LABS: POTASSIUM 4.1 mmol/L (3.5-5.1)
[2017-07-13 17:27] LABS: TROPONIN I < 0.015 ng/ml (<0.045)
[2017-07-13] MEDS ORDERED: TYLENOL WITH C1 EACH PO (17:34)
--- NOTE | 2017-07-13 17:36 | NUR ---
THIS NURSE WENT OVER THE MED REC WITH THE PATIENT
--- NOTE | 2017-07-13 18:34 | NUR ---
PT GOT HIS SUPPER TRAY. EATING WITHOUT COMPLAINTS.
[2017-07-13 18:55] VITALS: BP 114/80
--- NOTE | 2017-07-13 19:07 | NUR ---
THE PATIENT HAS NOT BEEN GIVEN A ROOM ASSIGNMENT AT THIS TIME
[2017-07-13 19:28] VITALS: BP 131/74
[2017-07-13 20:00] VITALS: BP 103/86
--- NOTE | 2017-07-13 20:00 | NUR ---
A 57, admitted to , under the services of EFRAIN Carrero DO with a diagnosis of SOB. TACHY, SEPSIS. Chief complaint is SOB. Patient arrived via BED from ER. Monitor applied. Initial assessment completed. Vital signs taken and recorded. EFRAIN CARRERO DO notified of admission to the unit. Orders received. See assessment for past medical history, medications and allergies. Patient and/or family oriented to unit. [facility] visitation policy reviewed. Clothing/patient valuable form completed. ZEINAB GÓMEZ
[2017-07-13 21:20] VITALS: BP 113/81
--- NOTE | 2017-07-13 21:20 | NUR ---
RAPID RESPONSE CALLED. PATIENT IN ROOM HAD COUGHING SPELL, PATIENT STATED HE COULDN'T REMEMBER ANYTHING, BUT THEN CONTINUED TO ASKED THIS NURSE WHEN HE WAS GETTING HIS PAIN PILL AND SMOKING PATCH FROM ADMISSION AT 1999. PATIENT ALERT AND ORIENTED X3. DR. MYRICK NOTIFIED. EKG ORDERED. TROPONINS ORDERED. VITAL SIGNS STABLE. WILL MONITOR
--- NOTE | 2017-07-13 22:10 | NUR ---
PRN NORCO GIVEN FOR PT COMPLAINTS OF CHEST WALL PAIN RATING IT AN 8/10. CALL LIGHT WITHIN REACH, WILL MONITOR
[2017-07-13] MEDS ORDERED: NEURONTIN400 MG PO (22:19)
[2017-07-13] MEDS ORDERED: LANTUS SOL100 UNIT/1 SQ (22:19)
[2017-07-13] MEDS ORDERED: VITAMIN D50000 UNIT PO (22:20)
[2017-07-13] MEDS ORDERED: TRAZODONE HYDR100 MG PO (22:20)
--- NOTE | 2017-07-13 22:30 | NUR ---
MED REC UPDATED PER PT
--- NOTE | 2017-07-13 23:49 | NUR ---
PRN MORPHINE GIVEN FOR PT COMPLAINTS OF CONTINUED CHEST WALL PAIN. RATING IT STILL AN 8/10. CALL LIGHT WITHIN REACH, WILL MONITOR
[2017-07-14] VITALS: BP 109/76
--- NOTE | 2017-07-14 00:15 | NUR ---
PRN MEDICATION APPEARS EFFECTIVE, PT SLEEPING
[2017-07-14 06:22] LABS: BASO # 0.1 10*3/uL (0.0-0.1); BASO % 0.6 % (0.0-1.0); EOS % 0.2 % (1.0-4.0); HEMATOCRIT 36.7 % (42.0-52.0); HEMOGLOBIN 11.6 g/dl (14.0-18.0); LYMPH # 0.8 10*3/uL (1.3-4.4); LYMPH % 8.3 % (27.0-41.0); MEAN CELL VOLUME 96.1 fl (80.0-94.0); MEAN CORPUSCULAR HGB 30.4 pg (27.0-31.0); MEAN CORPUSCULAR HGB CONC 31.6 g/dl (33.0-37.0); MONO # 0.2 10*3/uL (0.1-1.0); MONO % 1.5 % (3.0-9.0); NEUT # 8.7 10*3/uL (2.3-7.9); NEUT % 87.3 % (47.0-73.0); PLATELET COUNT AUTOMATED 214 10*3/uL (130-400); RED BLOOD COUNT 3.82 10*6/uL (4.50-5.90); RED CELL DISTRI WIDTH 14.1 % (0-14.5)
--- NOTE | 2017-07-14 06:40 | NUR ---
DR. MEHTA PAGED AT THIS TIME
[2017-07-14 06:49] LABS: CREATININE 1.55 mg/dL (0.70-1.30); FREE T4 0.97 ng/dl (0.76-1.46); MAGNESIUM 1.9 mg/dL (1.5-2.1)
[2017-07-14 06:49] LABS: ACT PARTIAL THROMBO TIME 26.7 SECONDS (20.8-31.5)
[2017-07-14 06:55] LABS: THYROID STIM HORMONE (HS) 0.503 uIU/ml (0.358-4.75)
--- NOTE | 2017-07-14 07:21 | NUR ---
DR. MEHTA REPAGED AT THIS TIME FOR CONSULT
[2017-07-14 08:00] VITALS: BP 88/62
--- NOTE | 2017-07-14 08:40 | NUR ---
notified dr. medrano of pt's bp.
--- NOTE | 2017-07-14 09:00 | NUR ---
Science Instructor in to talk to patient. Patient states lives at home with . There are few steps in the home. Physician: karie mendoza Pharmacy: [facility] health services: none Patient's level of ADLs: INDEPENDENT Patient has working utilities: all working DME: cane, walker, nebulizer Follow-up physician's appointment after d/c: will be made by hospitalist nruse director upon discharge Does patient want to access PORTAL?: no Discharge plan discussed with patient patient lives at home with , is independent in adls and ambulation, uses a walker or cane as needed, patient states he will be going home when able and denies any home needs. EZEQUIEL LEHMAN
--- NOTE | 2017-07-14 11:12 | NUR ---
ADAM NICHOLAS [id number] Please refer to the physician's history and physical for past medical history, comorbid conditions, and allergies. Diagnosis: SOB TACHYCARDIA SEPSIS RIGHT SIDED CHEST WALL Dion Score: 22,LOW OR NO RISK WOUND DESCRIPTIONS: Location of the wound: proximal chest Thickness: Partial Size: 0.9cm x 2.0cm x 0.1cm Tunneling: none Undermining: none Sinus Tract: none Presence of Exudate: serosanguineous Amount: Light Color: Red Odor: None Periwound Skin Appearance: Normal Wound edges: approximated Pain (associated with wound): none at time of assessment How does patient state this happened? pt stated it occured after his cabg and he he went fishing and that is how his wounds occured. Location of the wound: middle chest wound Thickness: Partial Size: 1.8cm x 1.5cm x 0.1cm Tunneling: none Undermining: none Sinus Tract: none Presence of Exudate: serosanguineous Amount: Light Color: Red Odor: None Periwound Skin Appearance: Normal Wound edges: approximated Pain (associated with wound): none at time of assessment How does patient state this happened? pt stated it occured after his cabg and he he went fishing and that is how his wounds occured. Location of the wound: distal chest wound Thickness: Partial Size: 1.1cm x 1.6cm x 0.1cm Tunneling: none Undermining: none Sinus Tract: none Presence of Exudate: serosanguineous Amount: Light Color: Red Odor: None Periwound Skin Appearance: Normal Wound edges: approximated Pain (associated with wound): none at time of assessment How does patient state this happened? pt stated it occured after his cabg and he he went fishing and that is how his wounds occured. Surface the patient is resting on: Position Pro SKIN PREVENTION RECOMMENDATION: 1. Pressure redistribution support surface as appropriate 2. Elevate heels 3. Remove boots/TEDS every shift and reapply 4. Head of bed 30 degrees as tolerated 5. Assess nutrition and hydration 6. Manage moisture 7. Avoid the use of containment devices while in bed 8. Use absorptive products on surfaces limit layers of linens on bed 9. Turn and reposition every 1-2 hours in bed and every 1 hour in chair as tolerated 10. Weight shifts every 15 minutes while up in chair 11. Offloading with pillows or device to keep heels elevated off bed 12. Monitor skin at least every shift 13. Inspect under medical devices twice a day WOUND TREATMENT RECOMMENDATIONS: Consult ID Follow up in the wound care center after discharge. Cleanse chest areas with nss and apply sureprep to surrounding wound and apply versatel to wound bed and therahoney to wound bed cover with optifoam gentle.
[2017-07-14 11:38] LABS: BUN 25 mg/dl (7-24); CHLORIDE 105 mmol/L (98-107); CREATININE 1.46 mg/dL (0.70-1.30); SODIUM 135 mmol/L (136-145)
[2017-07-14 12:00] VITALS: BP 88/52
--- NOTE | 2017-07-14 12:00 | NUR ---
RECIEVED IN ICCU FROM 426, FOR HYPOTENSION MANUAL BP 88/52, ALERT AND ORIENTED, ORIENTED TO STAFF
--- NOTE | 2017-07-14 12:36 | NUR ---
[facility]
[2017-07-14 13:23] VITALS: BP 112/75
--- NOTE | 2017-07-14 14:30 | NUR ---
PT MEDICATED WITH NORCO FOR C/O GENERALIZED BODY PAIN.
[2017-07-14 16:00] VITALS: BP 112/75
[2017-07-14 20:00] VITALS: BP 116/73
--- NOTE | 2017-07-14 21:35 | NUR ---
MEDICATED WITH NORCO PER PRN ORDER FOR C/O PAIN.
[2017-07-15] VITALS: BP 118/69
[2017-07-15 04:00] VITALS: BP 137/74
[2017-07-15 08:00] VITALS: BP 145/90
[2017-07-15 08:13] LABS: BASO % 0.1 % (0.0-1.0); HEMOGLOBIN 10.9 g/dl (14.0-18.0); LYMPH # 1.3 10*3/uL (1.3-4.4); LYMPH % 9.3 % (27.0-41.0); MEAN CELL VOLUME 96.3 fl (80.0-94.0); MEAN CORPUSCULAR HGB 30.9 pg (27.0-31.0); MEAN CORPUSCULAR HGB CONC 32.1 g/dl (33.0-37.0); NEUT # 11.5 10*3/uL (2.3-7.9); NEUT % 82.4 % (47.0-73.0); PLATELET COUNT AUTOMATED 214 10*3/uL (130-400); RED BLOOD COUNT 3.53 10*6/uL (4.50-5.90); RED CELL DISTRI WIDTH 14.5 % (0-14.5); WHITE BLOOD COUNT 13.9 10*3/uL (4.8-10.8)
[2017-07-15 08:26] LABS: BUN 23 mg/dl (7-24); CHLORIDE 107 mmol/L (98-107); CREATININE 1.35 mg/dL (0.70-1.30); SODIUM 140 mmol/L (136-145)
[2017-07-15 08:32] LABS: POTASSIUM 4.9 mmol/L (3.5-5.1)
[2017-07-15] MEDS ORDERED: PREDNISONE10 MG PO (11:10)
[2017-07-15] MEDS ORDERED: MUCINEX1200 M1 PO (11:10)
[2017-07-15] MEDS ORDERED: METOPROLOL SUCC25 M2 PO (11:10)
[2017-07-15] MEDS ORDERED: DOXYCYCLINE MO100 M1 PO (11:10)
--- NOTE | 2017-07-15 12:25 | NUR ---
Discharge instructions reviewed with patient/family. Patient receptive and verbalizes understanding. Follow-up care arranged. Written instructions given to patient/family. YAIR ROJAS
== END 2017-07-15 12:25 | disposition home or self-care (01) | DRG 871 ==
LOC: ED 15:58 → 4E 16:59 → EDHOLD 16:59 → 4E 19:42 → ICCU 07-14 11:46
PROVIDERS: Internal Medicine; Physician Assistant; ADMIT Internal Medicine
DX: A41.9 Sepsis, unspecified organism (principal); J18.9 Pneumonia, unspecified organism; N17.0 Acute kidney failure with tubular necrosis; I95.9 Hypotension, unspecified; N18.3 Chronic kidney disease, stage 3 (moderate); E11.22 Type 2 diabetes mellitus with diabetic chronic kidney disease; J44.0 Chronic obstructive pulmonary disease with (acute) lower respiratory infection; D50.9 Iron deficiency anemia, unspecified; F17.210 Nicotine dependence, cigarettes, uncomplicated; E44.0 Moderate protein-calorie malnutrition; F33.9 Major depressive disorder, recurrent, unspecified; R65.20 Severe sepsis without septic shock; L98.491 Non-pressure chronic ulcer of skin of other sites limited to breakdown of skin; K21.9 Gastro-esophageal reflux disease without esophagitis; R74.8 Abnormal levels of other serum enzymes; I25.10 Atherosclerotic heart disease of native coronary artery without angina pectoris; F41.1 Generalized anxiety disorder; I12.9 Hypertensive chronic kidney disease with stage 1 through stage 4 chronic kidney disease, or unspecified chronic kidney disease; E78.2 Mixed hyperlipidemia; Z71.6 Tobacco abuse counseling; Z95.1 Presence of aortocoronary bypass graft; Z88.8 Allergy status to other drugs, medicaments and biological substances; Z79.899 Other long term (current) drug therapy; Z79.4 Long term (current) use of insulin; Z90.49 Acquired absence of other specified parts of digestive tract; Z90.89 Acquired absence of other organs; Z95.5 Presence of coronary angioplasty implant and graft; Z82.49 Family history of ischemic heart disease and other diseases of the circulatory system; Z83.3 Family history of diabetes mellitus; Z80.8 Family history of malignant neoplasm of other organs or systems; Z84.89 Family history of other specified conditions; Z86.73 Personal history of transient ischemic attack (TIA), and cerebral infarction without residual deficits; I25.2 Old myocardial infarction; Z68.29 Body mass index [BMI] 29.0-29.9, adult

== ENCOUNTER 2017-07-24 21:08 | Inpatient (IN) | payer OTHER ==
[~2017-07-24] VITALS: Ht 167.6 cm; Wt 82.2 kg
--- NOTE | ~2017-07-24 | CON ---
[place], [place] REPORT OF CONSULTATION NAME: ADAM NICHOLAS UNIT #: [id number] ROOM: 528 DOCTOR: MANI MAURER,JANUARY BIRTHDATE: [birth year] DOS: 07/25/2017 ADDENDUM I did discuss with the patient regarding risks of photosensitivity. While taking the doxycycline as well as to avoid calcium for an hour before or after we did discuss sources of calcium and also to prevent nausea he needs to take it with food. PIEDAD SINGLETON CNP NAHED ALBERTO MD CM:CONSTR:REPORT OF CONSULTATION 1544 07/26/17 0620 interface
--- NOTE | ~2017-07-24 | CON ---
[place], [place] REPORT OF CONSULTATION NAME: ADAM NICHOLAS UNIT #: [id number] ROOM: 528 DOCTOR: DOLLY GONZALEZ,NAHED Post BIRTHDATE: [birth year] DOS: 07/25/2017 ADDENDUM I agree with the above plans as described after reviewing the labs, microbiology and radiographs. We will follow the patient clinically and adjust accordingly. NAHED ALBERTO MD CM:CONSTR:REPORT OF CONSULTATION 1628 07/26/17 0640 interface
--- NOTE | ~2017-07-24 | CON ---
[place], [place] REPORT OF CONSULTATION NAME: ADAM NICHOLAS UNIT #: [id number] ROOM: 528 DOCTOR: MANI MAURER,JANUARY BIRTHDATE: [birth year] DOS: 07/25/2017 HISTORY OF PRESENT ILLNESS: The patient is a 57-year-old male who has been seen in the past by Dr. Mcbride. History is obtained per discussion with the patient, review of old charts and review of our charts from the office. The patient was last seen in November of this year by Dr. Mcbride, he was receiving oral suppression: It was recommended that he stay on oral suppression for chronic osteo of the sternum. He had been seen for sternal dehiscence and osteomyelitis last year. He has chronic wounds of the sternum. It appears to be status post pectoral flap. His last CT that I could find in [place] was in March of this year. The patient has gotten some short course of doxycycline. He has currently been off the antibiotics. He came in for COPD exacerbation. Reviewing his labs back for years, he runs a persistent leukocytosis on all of his labs all the way back to 2011. He has only had one normal white count since 2011. Therefore, leukocytosis is quite persistent. His CABG was actually done in [place] in early 2015 and he developed postop infection reportedly with MRSA. His chest was cultured in March of this year here at [place] and grew methicillin-sensitive Staph aureus that was sensitive to doxycycline. ID is consulted now for his sternal wounds, chronic osteomyelitis, leukocytosis and upper respiration infection. He has had cough and some shortness of breath for approximately 2 weeks. States he feels hot on and off, possibly low grade temp. He has been evaluated in the past. According to our office chart at [facility] for his chest, he has an area of herniated fat in the lower sternal portion and they did not feel he was surgical candidate for any revision. He has been afebrile since admission here. He was originally admitted on July 24. PAST MEDICAL HISTORY: As above as well as coronary artery disease, again status post CABG, COPD, depression, hypertension, GERD, anxiety, acute renal failure with tubular necrosis, now with chronic kidney disease, CVA, anemia, hyperlipidemia, appendectomy, bilateral carotid endarterectomy, cholecystectomy, right ileocecal artery stenting. SOCIAL HISTORY: Smokes 2 packets cigarette per day for approximately 40 years, nondrinker, no illicit drug use, lives at home with family. FAMILY MEDICAL HISTORY: Mother between the ages of 50 and 60, had a neck aneurysm. His father had heart disease and diabetes. ALLERGIES: INCLUDE TRAMADOL AND VANCOMYCIN. CURRENT MEDICATIONS: Include Levaquin, Plavix, Lipitor, insulin, Zosyn, Robaxin, Zyvox, Solu-Medrol and Mucinex. He has also received , Zithromax, Restoril, Zofran. LABORATORY DATA: WBC is 14.6, platelets 191. BUN 33, creatinine 1.66, LFTs within normal limits and no cultures from this hospitalization. REVIEW OF SYSTEMS: As above in history of present illness. No peripheral edema. No rashes. Again, he does have chronic sterile wounds, which are [place], [place] REPORT OF CONSULTATION NAME: ADAM NICHOLAS UNIT #: [id number] ROOM: 528 DOCTOR: MANI MAURER,JANUARY BIRTHDATE: [birth year] draining and he tries to keep clean at home. Further review of systems unremarkable. PHYSICAL EXAMINATION: VITAL SIGNS: Show temperature 97.2, pulse 100, respirations 20, BP 132/70: GENERAL: A 57-year-old male, in no acute distress. HEAD, EYES, EARS, NOSE AND THROAT: Normocephalic, no thrush, poor dentition. NECK: Supple. LUNGS: Diminished bilaterally with a few rhonchi. Respirations even and unlabored. HEART: Regular rhythm. No murmur appreciated. CHEST: With extensive scarring as well as signs of skin graft and in that area of the lower sternum. He has a soft reducible hernia. It appears he had a pectoral flap. ABDOMEN: Soft, nontender, positive bowel sounds. EXTREMITIES: No edema, deformity or cyanosis. SKIN: Warm, dry, free of rashes on sternum with upper portion of his scarring. He has couple of superficial wounds with no expressible discharge, little bloody dark, dirty drainage on the dressing is there currently. There are no areas of erythema, no odor, no areas of fluctuance. ASSESSMENT AND PLAN: Chronic sterile osteomyelitis. It appears he also has chronic leukocytosis. He has had leukocytosis. It appears all the blood work that has been done since 2011; therefore, I believe it is chronic. His upper respiratory infection is likely viral in origin with prolonged course given the fact that he continues to smoke 2 packs of cigarettes per day and he has COPD, but his chest x-ray is clear. He does not have much sputum with coughing, making tracheobronchitis, unlikely. At this point, I will get a CT of his chest without contrast given his renal insufficiency just to make sure, there are no abscesses. If he has no abscesses, he could be discharged home. I did advise him of the important following up. He has missed the last 3 appointments that were scheduled with our practice. I will place him on termite treater doxycycline oral suppression for his sternal osteomyelitis. I did clean the wound and obtain a fresh culture, though again he report had had a history of staph after the original surgery and he grew MSSA from the wound in March. I stopped the Zosyn and Levaquin. Case discussed with Dr. Nahed Alberto. JANUARY ERASTO SINGLETON [place], [place] REPORT OF CONSULTATION NAME: YUADAM H UNIT #: [id number] ROOM: 528 DOCTOR: MANI MAURER,JANUARY BIRTHDATE: [birth year] NAHED ALBERTO MD CM:CONSTR:REPORT OF CONSULTATION 1542 07/26/17 0620 interface
[2017-07-24 21:08] VITALS: BP 92/66
[~2017-07-24 21:08] MED LIST changes: +LANTUS SOL100 UNIT/1 SQ; +MUCINEX1200 M1 PO; +TRAZODONE HYDR100 MG PO; +TYLENOL WITH C1 EACH PO
[2017-07-24 21:49] LABS: BASO % 0.2 % (0.0-1.0); EOS # 0.3 10*3/uL (0.0-0.4); EOS % 1.9 % (1.0-4.0); HEMATOCRIT 37.2 % (42.0-52.0); HEMOGLOBIN 12.2 g/dl (14.0-18.0); LYMPH % 22.5 % (27.0-41.0); MEAN CELL VOLUME 96.9 fl (80.0-94.0); MEAN CORPUSCULAR HGB 31.8 pg (27.0-31.0); MEAN CORPUSCULAR HGB CONC 32.8 g/dl (33.0-37.0); MEAN PLATELET VOLUME 10.9 fl (9.6-12.3); MONO # 1.5 10*3/uL (0.1-1.0); MONO % 8.1 % (3.0-9.0); NEUT # 11.9 10*3/uL (2.3-7.9); NEUT % 66.6 % (47.0-73.0); PLATELET COUNT AUTOMATED 201 10*3/uL (130-400); RED BLOOD COUNT 3.84 10*6/uL (4.50-5.90); RED CELL DISTRI WIDTH 14.1 % (0-14.5); WHITE BLOOD COUNT 17.9 10*3/uL (4.8-10.8)
[2017-07-24 21:53] VITALS: BP 101/64
[2017-07-24 22:01] LABS: ACT PARTIAL THROMBO TIME 24.4 SECONDS (20.8-31.5); INTERNATIONAL NORM RATIO 0.9 (2.0-3.5)
[2017-07-24 22:05] LABS: ALBUMIN 2.7 gm/dl (3.1-4.5); ALKALINE PHOSPHATASE 151 U/L (45-117); BUN 35 mg/dl (7-24); CHLORIDE 109 mmol/L (98-107); CREATININE 1.62 mg/dL (0.70-1.30); MAGNESIUM 2.2 mg/dL (1.5-2.1); POTASSIUM 5.1 mmol/L (3.5-5.1); SGOT/AST 13 IU/L (3-35); SGPT/ALT 22 U/L (12-78); SODIUM 141 mmol/L (136-145); TOTAL PROTEIN 6.6 gm/dL (6.4-8.2)
[2017-07-24 22:08] LABS: TROPONIN I < 0.015 ng/ml (<0.045)
[2017-07-25 00:50] VITALS: BP 84/61
--- NOTE | 2017-07-25 00:50 | NUR ---
A 57, admitted to 5E, under the services of EMILEE Cool DO with a diagnosis of COPD, CHEST PAIN. Chief complaint is SOB. Patient arrived via bed from ER. Monitor applied. Initial assessment completed. Vital signs taken and recorded. EMILEE COOL DO notified of admission to the unit. Orders received. See assessment for past medical history, medications and allergies. Patient and/or family oriented to unit. visitation policy reviewed. Clothing/patient valuable form completed. MANNY NAM
[2017-07-25] MEDS ORDERED: ZANTAC 300300 MG PO (01:18)
[2017-07-25] MEDS ORDERED: VITAMIN D22000 UNIT PO (01:22)
[2017-07-25] MEDS ORDERED: TOPROL XL25 MG PO (01:24)
[2017-07-25] MEDS ORDERED: IBU800 M1 PO (01:26)
[2017-07-25] MEDS ORDERED: NITROSTAT0.4 MG SL (01:28)
[2017-07-25] MEDS ORDERED: VOLTAREN50 M1 PO (01:30)
[2017-07-25] MEDS ORDERED: LISINOPRIL5 MG PO (01:31)
[2017-07-25] MEDS ORDERED: LEXAPRO10 MG PO (01:33)
[2017-07-25] MEDS ORDERED: ZOFRAN4 MG SL (01:35)
--- NOTE | 2017-07-25 03:03 | NUR ---
PRN NORCO GIVEN TO PT. FOR GENERALIZED PAIN RATING IT AN 06/02. WILL CONTINUE TO MONITOR.
--- NOTE | 2017-07-25 03:33 | NUR ---
PRN NORCO EFFECTIVE, PT. IS RESTING COMFORTABLY, RESPIRATIONS EASY AND NONLABORED, WILL CONTINUE TO MONITOR.
[2017-07-25 03:45] LABS: HEMATOCRIT 38.8 % (42.0-52.0); HEMOGLOBIN 11.9 g/dl (14.0-18.0); MEAN CELL VOLUME 99.7 fl (80.0-94.0); MEAN CORPUSCULAR HGB 30.6 pg (27.0-31.0); MEAN CORPUSCULAR HGB CONC 30.7 g/dl (33.0-37.0); MEAN PLATELET VOLUME 11.8 fl (9.6-12.3); PLATELET COUNT AUTOMATED 191 10*3/uL (130-400); RED BLOOD COUNT 3.89 10*6/uL (4.50-5.90); RED CELL DISTRI WIDTH 14.1 % (0-14.5); WHITE BLOOD COUNT 14.6 10*3/uL (4.8-10.8)
[2017-07-25 04:00] LABS: ALBUMIN 2.9 gm/dl (3.1-4.5); CREATININE 1.66 mg/dL (0.70-1.30); MAGNESIUM 2.2 mg/dL (1.5-2.1); PHOSPHOROUS 4.1 mg/dL (2.5-4.9); TOTAL PROTEIN 7.2 gm/dL (6.4-8.2)
[2017-07-25 04:04] LABS: PLATELET SUFFICIENCY NORMAL (NORMAL); TOTAL CELLS COUNTED 100 #CELLS
--- NOTE | 2017-07-25 11:16 | NUR ---
DR PHILLIP NOTIFIED OF CONSULT DR PETE OFFICE NOTIFIED OF NEW CONSULT
--- NOTE | 2017-07-25 11:33 | NUR ---
DR RAYO CALLED BACK ON PT AND SAID SOMEONE WILL SEE PT TODAY.
[2017-07-25 12:00] VITALS: BP 132/70
--- NOTE | 2017-07-25 14:04 | NUR ---
PT INSTRUCTED ON I/S AND THE BENEFITS OF EXERCISE. PT ACHIEVED A VOLUME OF 1500. Q1 HOUR INSTRUCTIONS GIVEN.
--- NOTE | 2017-07-25 14:39 | NUR ---
DR BANEGAS NOTIFIED OF NEW CONSULT
[2017-07-25 16:00] VITALS: BP 114/73
--- NOTE | 2017-07-25 16:13 | NUR ---
DR TUCKER NOTIFIED OF REFLUX 293
--- NOTE | 2017-07-25 17:47 | NUR ---
per dr clark, he will cancel the ct chest when he gets him tonight
--- NOTE | 2017-07-25 19:30 | NUR ---
PT. RESTING COMFORTABLY IN BED WATCHING TV AT THIS TIME, HOB IS ELEVATED AND NO DISTRESS IS NOTED. PLEASE SEE SHIFT ASSESSMENT.
[2017-07-25 20:00] VITALS: BP 105/77
--- NOTE | 2017-07-25 22:04 | NUR ---
PRN PERCOCET GIVEN PER PT. REQUEST FOR GENERALIZED ACHES AND PAINS, RATING IT A 6/10. WILL MONITOR EFFECTIVENESS.
[2017-07-26] VITALS: BP 121/74
--- NOTE | 2017-07-26 01:47 | NUR ---
SPOKE TO AT THIS TIME REGARDING PATIENT'S MULTIPLE REQUESTS FOR HOME GABAPENTIN AND HOME REQUIP. NEW ORDERS TO FOLLOW.
--- NOTE | 2017-07-26 04:13 | NUR ---
PATIENT STATES HE WANTS TO LEAVE AMA. PATIENT STATES IF HE CAN'T SLEEP, HE WANTS TO LEAVE AND HAVE A COFFEE. PATIENT ENCOURAGED TO STAY AND EDUCATED ABOUT RISKS OF LEAVING AGAINST MEDICAL ADVICE. AND NURSING CARROT TIER NOTIFIED OF PATIENT'S WISHES. AMA PAPER SIGNED, MONITOR COLLECTED, AND IV SITE REMOVED.
--- NOTE | 2017-07-26 04:14 | NUR ---
PATIENT HAS MEDS IN PHARMACY. STATES HE WILL COME BACK TO GET THEM TOMORROW. IN HOUSE PHARMACY NOT OPEN AT THIS TIME.
--- NOTE | 2017-07-26 04:20 | NUR ---
RETURNED TO PATIENT'S ROOM AT THIS TIME TO MAKE SURE HE HAD A RIDE SET UP. PATIENT HAD ALREADY LEFT ROOM AT THIS TIME, WITHOUT NOTIFYING ANY STAFF. BELONGINGS GATHERED AND TAKEN WITH PATIENT. UNABLE TO TAKE WOUND PHOTOS DUE TO PATIENT'S UNANNOUNCED DEPARTURE.
--- NOTE | 2017-07-26 04:20 | NUR ---
PATIENT STATING HE WANTS TO LEAVE AMA BECAUSE HE WANTS TO DRINK COFFEE. PATIENT STATES IF HE CAN'T FALL ASLEEP, HE WANTS TO WAKE UP. PATIENT EDUCATED ABOUT LEAVING AGAINST MEDICAL ADVICE. ENCOURAGED TO STAY, COMFORT MEASURES OFFERED TO HELP HIM SLEEP. AND NURSING [employer] WINDOWS ENGINEER NOTIFIED. IV SITE REMOVED. BUNCHER MACHINE COLLECTED. PATIENT SIGNED AMA PAPER, CALLED CAB SERVICE, COLLECTED BELONGINGS AND LEFT IN CARE OF HIMSELF.
== END 2017-07-26 04:20 | disposition left against medical advice (07) | DRG 871 ==
LOC: ED 21:08 → 5E 07-25 00:09 → EDHOLD 07-25 00:09 → 5E 07-25 00:14
PROVIDERS: Emergency Medicine Emergency Medical Services; Hospitalist; ADMIT Internal Medicine
DX: A41.9 Sepsis, unspecified organism (principal); J18.9 Pneumonia, unspecified organism; N17.0 Acute kidney failure with tubular necrosis; N18.3 Chronic kidney disease, stage 3 (moderate); E44.0 Moderate protein-calorie malnutrition; J44.1 Chronic obstructive pulmonary disease with (acute) exacerbation; M86.8X8 Other osteomyelitis, other site; J44.0 Chronic obstructive pulmonary disease with (acute) lower respiratory infection; F32.9 Major depressive disorder, single episode, unspecified; I25.10 Atherosclerotic heart disease of native coronary artery without angina pectoris; I12.9 Hypertensive chronic kidney disease with stage 1 through stage 4 chronic kidney disease, or unspecified chronic kidney disease; E78.2 Mixed hyperlipidemia; E66.3 Overweight; K21.9 Gastro-esophageal reflux disease without esophagitis; R07.89 Other chest pain; F17.210 Nicotine dependence, cigarettes, uncomplicated; F41.9 Anxiety disorder, unspecified; Z53.21 Procedure and treatment not carried out due to patient leaving prior to being seen by health care provider; Z86.73 Personal history of transient ischemic attack (TIA), and cerebral infarction without residual deficits; Z90.49 Acquired absence of other specified parts of digestive tract; Z95.5 Presence of coronary angioplasty implant and graft; Z95.1 Presence of aortocoronary bypass graft; Z80.9 Family history of malignant neoplasm, unspecified; Z83.3 Family history of diabetes mellitus; Z82.49 Family history of ischemic heart disease and other diseases of the circulatory system; Z88.6 Allergy status to analgesic agent; Z88.1 Allergy status to other antibiotic agents; Z79.4 Long term (current) use of insulin; Z79.899 Other long term (current) drug therapy; Z79.51 Long term (current) use of inhaled steroids; Z68.29 Body mass index [BMI] 29.0-29.9, adult

== ENCOUNTER 2017-08-15 16:39 | Emergency (ER) | payer OTHER ==
[~2017-08-15] VITALS: Ht 175.2 cm; Wt 99.8 kg
--- NOTE | ~2017-08-15 | EKG ---
[place], [place] ELECTROCARDIOGRAM REPORT NAME: ADAM NICHOLAS UNIT #: [id number] ROOM: DOCTOR: REX DEAN MD BIRTHDATE: [birth year] DOS: 08/15/2017 TIME: 1705 hours. Normal sinus rhythm at 94 beats per minute. Left anterior hemiblock. Complete right bundle-branch block. An abnormal ECG. No previous tracing is available for comparison. REX DEAN MD CM:EKGRPT:ELECTROCARDIOGRAM REPORT [id number] REX DEAN MD
[~2017-08-15 16:39] MED LIST changes: +VITAMIN D22000 UNIT PO; +VOLTAREN50 M1 PO; +ZOFRAN4 MG SL
[2017-08-15 17:15] LABS: BASO # 0.1 10*3/uL (0.0-0.1); BASO % 0.4 % (0.0-1.0); EOS # 0.4 10*3/uL (0.0-0.4); EOS % 1.9 % (1.0-4.0); HEMATOCRIT 34.8 % (42.0-52.0); HEMOGLOBIN 11.6 g/dl (14.0-18.0); LYMPH # 2.5 10*3/uL (1.3-4.4); MEAN CELL VOLUME 93.5 fl (80.0-94.0); MEAN CORPUSCULAR HGB 31.2 pg (27.0-31.0); MEAN CORPUSCULAR HGB CONC 33.3 g/dl (33.0-37.0); MEAN PLATELET VOLUME 10.7 fl (9.6-12.3); MONO # 1.4 10*3/uL (0.1-1.0); MONO % 7.6 % (3.0-9.0); NEUT # 14.5 10*3/uL (2.3-7.9); NEUT % 76.2 % (47.0-73.0); PLATELET COUNT AUTOMATED 348 10*3/uL (130-400); RED BLOOD COUNT 3.72 10*6/uL (4.50-5.90); RED CELL DISTRI WIDTH 13.7 % (0-14.5)
[2017-08-15 17:24] LABS: ACT PARTIAL THROMBO TIME 24.9 SECONDS (20.8-31.5); INTERNATIONAL NORM RATIO 0.9 (2.0-3.5)
[2017-08-15 17:30] LABS: ALKALINE PHOSPHATASE 227 U/L (45-117); BUN 17 mg/dl (7-24); CHLORIDE 105 mmol/L (98-107); CREATININE 1.35 mg/dL (0.70-1.30); LIPASE 237 U/L (73-393); MAGNESIUM 1.8 mg/dL (1.5-2.1); POTASSIUM 4.8 mmol/L (3.5-5.1); SGOT/AST 17 IU/L (3-35); SGPT/ALT 28 U/L (12-78); SODIUM 138 mmol/L (136-145); TOTAL PROTEIN 7.2 gm/dL (6.4-8.2)
[2017-08-15 17:41] LABS: TROPONIN I < 0.015 ng/ml (<0.045)
[2017-08-15 17:51] LABS: BILIRUBIN NEGATIVE (NEGATIVE); BLOOD NEGATIVE (NEGATIVE); CLARITY CLEAR (CLEAR); COLOR YELLOW (YELLOW); GLUCOSE 3+ (NEGATIVE); KETONE NEGATIVE (NEGATIVE); LEUKO ESTERASE NEGATIVE (NEGATIVE); NITRITE NEGATIVE (NEGATIVE); SPECIFIC GRAVITY 1.015 (1.005-1.030); UROBILINOGEN 0.2 E.U./dl (0.2-1.0)
[2017-08-15 18:02] LABS: EPITHELIAL CELLS 0-2; WBC 0-2 wbc/hpf (0-5)
== END 2017-08-15 22:36 | disposition short-term general hospital (02) ==
LOC: ED 16:39
PROVIDERS: Emergency Medicine
DX: I63.9 Cerebral infarction, unspecified (principal); F17.200 Nicotine dependence, unspecified, uncomplicated; I25.10 Atherosclerotic heart disease of native coronary artery without angina pectoris; I12.9 Hypertensive chronic kidney disease with stage 1 through stage 4 chronic kidney disease, or unspecified chronic kidney disease; N18.3 Chronic kidney disease, stage 3 (moderate); K21.9 Gastro-esophageal reflux disease without esophagitis; E78.5 Hyperlipidemia, unspecified; E66.3 Overweight; Z68.29 Body mass index [BMI] 29.0-29.9, adult; Z90.49 Acquired absence of other specified parts of digestive tract; Z95.1 Presence of aortocoronary bypass graft; Z95.5 Presence of coronary angioplasty implant and graft; Z88.6 Allergy status to analgesic agent; Z88.1 Allergy status to other antibiotic agents; Z79.899 Other long term (current) drug therapy

== ENCOUNTER → 2017-09-07 | Emergency (ER) | payer OTHER ==
[~2017-09-07] VITALS: Ht 170.1 cm; Wt 83.9 kg
[~2017-09-07] MED LIST changes: +AMOXICILLIN500 M2 PO; +PREDNISONE20 M1 PO; +TESSALON PERLE100 M1 PO
--- NOTE | ~2017-09-07 | EKG ---
[place], [place] ELECTROCARDIOGRAM REPORT NAME: ADAM NICHOLAS UNIT #: [id number] ROOM: DOCTOR: REX DEAN MD BIRTHDATE: [birth year] DOS: 09/07/2017 1124 hours. Normal sinus rhythm at 100 beats per minute. Complete right bundle branch block. Left anterior hemiblock. An abnormal ECG. No previous tracing is available for comparison. REX DEAN MD CM:EKGRPT:ELECTROCARDIOGRAM REPORT [id number] 39 REX DEAN MD
[2017-09-07 11:25] LABS: BASO # 0.1 10*3/uL (0.0-0.1); BASO % 0.7 % (0.0-1.0); EOS # 0.3 10*3/uL (0.0-0.4); EOS % 2.7 % (1.0-4.0); HEMATOCRIT 33.8 % (42.0-52.0); LYMPH # 2.3 10*3/uL (1.3-4.4); LYMPH % 18.9 % (27.0-41.0); MEAN CELL VOLUME 94.9 fl (80.0-94.0); MEAN CORPUSCULAR HGB 30.9 pg (27.0-31.0); MEAN CORPUSCULAR HGB CONC 32.5 g/dl (33.0-37.0); MEAN PLATELET VOLUME 11.3 fl (9.6-12.3); MONO % 8.5 % (3.0-9.0); NEUT # 8.4 10*3/uL (2.3-7.9); NEUT % 68.7 % (47.0-73.0); PLATELET COUNT AUTOMATED 243 10*3/uL (130-400); RED BLOOD COUNT 3.56 10*6/uL (4.50-5.90); RED CELL DISTRI WIDTH 14.1 % (0-14.5); WHITE BLOOD COUNT 12.2 10*3/uL (4.8-10.8)
[2017-09-07 11:41] LABS: ALBUMIN 3.1 gm/dl (3.1-4.5); ALKALINE PHOSPHATASE 178 U/L (45-117); BUN 28 mg/dl (7-24); CHLORIDE 103 mmol/L (98-107); CREATININE 1.72 mg/dL (0.70-1.30); SGOT/AST 7 IU/L (3-35); SGPT/ALT 15 U/L (12-78); SODIUM 137 mmol/L (136-145); TOTAL PROTEIN 7.2 gm/dL (6.4-8.2)
[2017-09-07 11:43] LABS: TROPONIN I < 0.015 ng/ml (<0.045)
== END ==
LOC: ED 10:50
PROVIDERS: Nurse Practitioner Family
DX: J20.9 Acute bronchitis, unspecified (principal); J44.9 Chronic obstructive pulmonary disease, unspecified; F17.200 Nicotine dependence, unspecified, uncomplicated; Z90.49 Acquired absence of other specified parts of digestive tract; Z98.890 Other specified postprocedural states; Z95.1 Presence of aortocoronary bypass graft; Z95.5 Presence of coronary angioplasty implant and graft; Z79.899 Other long term (current) drug therapy; Z79.4 Long term (current) use of insulin; Z88.6 Allergy status to analgesic agent; Z88.1 Allergy status to other antibiotic agents

== ENCOUNTER 2017-09-14 08:21 | Inpatient (IN) | payer OTHER ==
[~2017-09-14] VITALS: Ht 167.6 cm; Wt 81.8 kg
[2017-09-14] VITALS (19 sets, daily range): BP systolic 50–150; BP diastolic 0–93
[~2017-09-14 08:21] MED LIST changes: +LEXAPRO20 MG PO; +NEURONTIN800 MG PO
[2017-09-14 08:48] LABS: BASO # 0.1 10*3/uL (0.0-0.1); BASO % 0.6 % (0.0-1.0); EOS # 0.3 10*3/uL (0.0-0.4); HEMATOCRIT 37.8 % (42.0-52.0); HEMOGLOBIN 12.4 g/dl (14.0-18.0); LYMPH # 4.1 10*3/uL (1.3-4.4); LYMPH % 26.3 % (27.0-41.0); MEAN CELL VOLUME 95.5 fl (80.0-94.0); MEAN CORPUSCULAR HGB 31.3 pg (27.0-31.0); MEAN CORPUSCULAR HGB CONC 32.8 g/dl (33.0-37.0); MEAN PLATELET VOLUME 11.1 fl (9.6-12.3); MONO # 1.2 10*3/uL (0.1-1.0); MONO % 7.7 % (3.0-9.0); NEUT # 9.6 10*3/uL (2.3-7.9); NEUT % 62.5 % (47.0-73.0); PLATELET COUNT AUTOMATED 270 10*3/uL (130-400); RED BLOOD COUNT 3.96 10*6/uL (4.50-5.90); RED CELL DISTRI WIDTH 13.7 % (0-14.5); WHITE BLOOD COUNT 15.4 10*3/uL (4.8-10.8)
[2017-09-14 08:56] LABS: ACT PARTIAL THROMBO TIME 20.8 SECONDS (20.8-31.5); INTERNATIONAL NORM RATIO 0.9 (2.0-3.5)
--- NOTE | 2017-09-14 09:03 | NUR ---
PT IS HYPOTENSIVE. DR AT THE BEDSIDE. 2 LITERS NORMAL SALINE WIDE OPEN. LADONNA HAM RN
[2017-09-14 09:05] LABS: ALBUMIN 3.1 gm/dl (3.1-4.5); ALKALINE PHOSPHATASE 154 U/L (45-117); BUN 38 mg/dl (7-24); CHLORIDE 105 mmol/L (98-107); CREATININE 2.19 mg/dL (0.70-1.30); LIPASE 327 U/L (73-393); POTASSIUM 3.9 mmol/L (3.5-5.1); SGOT/AST 15 IU/L (3-35); SGPT/ALT 23 U/L (12-78); SODIUM 141 mmol/L (136-145)
--- NOTE | 2017-09-14 09:13 | NUR ---
TO CT SCAN. LADONNA HAM RN
[2017-09-14 09:17] LABS: TROPONIN I < 0.015 ng/ml (<0.045)
--- NOTE | 2017-09-14 10:16 | NUR ---
PT STILL UNABLE TO PROVIDE URINE SPECIMEN. REFUSES TO BE CATHED. LADONNA HAM RN
[2017-09-14 11:53] LABS: BILIRUBIN NEGATIVE (NEGATIVE); BLOOD NEGATIVE (NEGATIVE); CLARITY CLEAR (CLEAR); COLOR YELLOW (YELLOW); GLUCOSE 3+ (NEGATIVE); KETONE NEGATIVE (NEGATIVE); LEUKO ESTERASE NEGATIVE (NEGATIVE); NITRITE NEGATIVE (NEGATIVE); PH 5.5 (5.0-9.0); SPECIFIC GRAVITY 1.015 (1.005-1.030); UROBILINOGEN 0.2 E.U./dl (0.2-1.0)
[2017-09-14 12:04] LABS: BACTERIA 1+; YEAST 2+
--- NOTE | 2017-09-14 12:07 | NUR ---
LEVOPHED DECREASED TO 2 LEXI/MIN. BP 150/89. LADONNA HAM RN
--- NOTE | 2017-09-14 12:25 | NUR ---
A 57, admitted to ICCU, under the services of EMILEE Cool DO with a diagnosis of SEPSIS. Chief complaint is cramps in abdomen mild nausea. drinks alot of pop. scant urine output very dark at home mild discomfort on urination. Patient arrived via stretcher from ER. Monitor applied. Initial assessment completed. Vital signs taken and recorded. EMILEE COOL DO notified of admission to the unit. Orders received. See assessment for past medical history, medications and allergies. Patient and/or family oriented to unit. [facility]U visitation policy reviewed. Clothing/patient valuable form completed. BRAYDON MACKENZIE
[2017-09-14] MEDS ORDERED: ZANTAC 300300 MG PO (12:58)
[2017-09-14] MEDS ORDERED: BUSPAR15 MG PO (13:04)
[2017-09-14] MEDS ORDERED: ARTHROTEC 75 M1 EACH PO (13:05)
[2017-09-14] MEDS ORDERED: TRAZODONE150 MG PO (13:07)
--- NOTE | 2017-09-14 15:17 | NUR ---
Levophed to OFF shortly after arrival. Normotensive. Took full meal and then up to BSC for large BM. Then off to US via w/c.
--- NOTE | 2017-09-14 17:00 | NUR ---
PT RESTING QUIETLY, NORCO EFFECTIVE FOR PAIN. LA CRENSHAW RN
--- NOTE | 2017-09-14 20:17 | NUR ---
PT. RESTING IN BED. HEP LOCK IN TIFFANY ASYMPT. IVF INFUSING VIA RAN, SITE ALSO ASYMPT. LUNGS HAVE I&E WHEEZES BILAT, HARSH AUTOMOBILE ENGINE ASSEMBLER COUGH NOTED. ABDOMEN SOFT, NONDISTENDED AND NORMO. PT. STATES RUQ PAIN CONTINUES. NO PERIPHERAL EDEMA NOTED. RESP. EASY AND REG, NO DISTRESS. BASSAM ROJAS RN
--- NOTE | 2017-09-14 20:48 | NUR ---
PT. DUE TO GET LEVIMER AT 1999 SCHEDULED MED. BEDSIDE GLUC STATED CRITICALLY HIGH. STAT REFLEX ORDERED. LEVIMER GIVEN. STAT REFLEX RESULT 238. REGULAR COVERAGE ALSO TO BE GIVEN. BASSAM ROJAS RN
[2017-09-15] VITALS: BP 95/61
[2017-09-15 04:00] VITALS: BP 114/81
[2017-09-15 04:33] LABS: BASO % 0.2 % (0.0-1.0); EOS % 0.1 % (1.0-4.0); HEMATOCRIT 34.5 % (42.0-52.0); HEMOGLOBIN 11.2 g/dl (14.0-18.0); LYMPH # 0.9 10*3/uL (1.3-4.4); LYMPH % 7.9 % (27.0-41.0); MEAN CELL VOLUME 94.3 fl (80.0-94.0); MEAN CORPUSCULAR HGB 30.6 pg (27.0-31.0); MEAN CORPUSCULAR HGB CONC 32.5 g/dl (33.0-37.0); MEAN PLATELET VOLUME 11.2 fl (9.6-12.3); MONO # 0.1 10*3/uL (0.1-1.0); MONO % 1.1 % (3.0-9.0); NEUT # 10.6 10*3/uL (2.3-7.9); NEUT % 89.8 % (47.0-73.0); PLATELET COUNT AUTOMATED 212 10*3/uL (130-400); RED BLOOD COUNT 3.66 10*6/uL (4.50-5.90); RED CELL DISTRI WIDTH 13.6 % (0-14.5); WHITE BLOOD COUNT 11.8 10*3/uL (4.8-10.8)
[2017-09-15 04:57] LABS: ALBUMIN 2.7 gm/dl (3.1-4.5); CREATININE 1.51 mg/dL (0.70-1.30); PHOSPHOROUS 2.5 mg/dL (2.5-4.9); TOTAL PROTEIN 6.3 gm/dL (6.4-8.2)
[2017-09-15 05:05] LABS: THYROID STIM HORMONE (HS) 0.184 uIU/ml (0.358-4.75)
[2017-09-15 05:11] LABS: POTASSIUM 6.2 mmol/L (3.5-5.1)
--- NOTE | 2017-09-15 05:15 | NUR ---
Dr Lobito Melvin notified of K+ of 6.2.
--- NOTE | 2017-09-15 06:05 | NUR ---
NORCO GIVEN FOR R UPPER QUAD PAIN, RATED #8 ON 1-10 PAIN SCALE AT 0545.
--- NOTE | 2017-09-15 06:38 | NUR ---
PT. SLEEPING, NORCO EFFECTIVE. BASSAM ROJAS RN
[2017-09-15 06:54] LABS: VITAMIN D, 25-HYDROXY 39.1 ng/mL (30-100)
[2017-09-15 07:57] VITALS: BP 116/85
[2017-09-15 10:05] LABS: CREATININE 1.6 mg/dL (0.70-1.30); POTASSIUM 5.4 mmol/L (3.5-5.1)
[2017-09-15 12:01] VITALS: BP 136/82
[2017-09-15 16:16] LABS: CREATININE 2.11 mg/dL (0.70-1.30); POTASSIUM 5.3 mmol/L (3.5-5.1)
--- NOTE | 2017-09-15 16:28 | NUR ---
PT FIGHTING WITH AND FAMILY ON THE PHONE. YELLING. THEN HOLLERED FOR ME TO "GET THE AMA PAPER AND TAKE MY IV'S OUT IM LEAVING"
--- NOTE | 2017-09-15 16:28 | NUR ---
Patient signed out AMA. Patient encouraged to stay and advised of possible consequences of premature discharge. Physician DR BRIDGES and supervisor process testing BASSAM JOSEPH RN notified. Patient instructed what to do regarding care post-departure from the hospital; emergency phone numbers provided. Patent was accompanied by NONE. STATED HE WAS GOING TO CALL HIS COUSIN WHEN HE GOT OUTSIDE TO SMOKE.. MICHAEL BOLES J
== END 2017-09-15 16:15 | disposition left against medical advice (07) | DRG 871 ==
LOC: ED 08:21 → EDHOLD 11:52 → ICCU 11:52
PROVIDERS: Emergency Medicine; Student in an Organized Health Care Education/Training Program; ADMIT Internal Medicine
DX: A41.9 Sepsis, unspecified organism (principal); N17.0 Acute kidney failure with tubular necrosis; R65.21 Severe sepsis with septic shock; E87.2 Acidosis; J18.9 Pneumonia, unspecified organism; E11.22 Type 2 diabetes mellitus with diabetic chronic kidney disease; N18.3 Chronic kidney disease, stage 3 (moderate); J44.1 Chronic obstructive pulmonary disease with (acute) exacerbation; J44.0 Chronic obstructive pulmonary disease with (acute) lower respiratory infection; E86.0 Dehydration; I25.10 Atherosclerotic heart disease of native coronary artery without angina pectoris; F17.210 Nicotine dependence, cigarettes, uncomplicated; K21.9 Gastro-esophageal reflux disease without esophagitis; F41.9 Anxiety disorder, unspecified; E78.2 Mixed hyperlipidemia; K76.0 Fatty (change of) liver, not elsewhere classified; I12.9 Hypertensive chronic kidney disease with stage 1 through stage 4 chronic kidney disease, or unspecified chronic kidney disease; Z53.21 Procedure and treatment not carried out due to patient leaving prior to being seen by health care provider; Z88.1 Allergy status to other antibiotic agents; Z88.6 Allergy status to analgesic agent; Z90.49 Acquired absence of other specified parts of digestive tract; Z95.5 Presence of coronary angioplasty implant and graft; Z98.62 Peripheral vascular angioplasty status; Z82.49 Family history of ischemic heart disease and other diseases of the circulatory system; Z83.3 Family history of diabetes mellitus; Z80.9 Family history of malignant neoplasm, unspecified; Z86.73 Personal history of transient ischemic attack (TIA), and cerebral infarction without residual deficits; Z79.4 Long term (current) use of insulin; Z79.899 Other long term (current) drug therapy

== ENCOUNTER 2017-09-28 15:43 | Emergency (ER) | payer OTHER ==
[~2017-09-28] VITALS: Wt 81.6 kg
[~2017-09-28 15:43] MED LIST changes: +ARTHROTEC 75 M1 EACH PO; +BUSPAR15 MG PO; +TRAZODONE150 MG PO
[2017-09-28 16:31] LABS: BASO # 0.1 10*3/uL (0.0-0.1); BASO % 0.6 % (0.0-1.0); EOS # 0.3 10*3/uL (0.0-0.4); EOS % 2.5 % (1.0-4.0); HEMATOCRIT 33.3 % (42.0-52.0); HEMOGLOBIN 10.9 g/dl (14.0-18.0); LYMPH # 2.6 10*3/uL (1.3-4.4); LYMPH % 21.4 % (27.0-41.0); MEAN CELL VOLUME 93.3 fl (80.0-94.0); MEAN CORPUSCULAR HGB 30.5 pg (27.0-31.0); MEAN CORPUSCULAR HGB CONC 32.7 g/dl (33.0-37.0); MEAN PLATELET VOLUME 11.6 fl (9.6-12.3); MONO # 0.7 10*3/uL (0.1-1.0); NEUT # 8.3 10*3/uL (2.3-7.9); NEUT % 68.9 % (47.0-73.0); PLATELET COUNT AUTOMATED 188 10*3/uL (130-400); RED BLOOD COUNT 3.57 10*6/uL (4.50-5.90); RED CELL DISTRI WIDTH 13.6 % (0-14.5)
[2017-09-28 16:47] LABS: CREATININE 1.88 mg/dL (0.70-1.30); POTASSIUM 4.7 mmol/L (3.5-5.1); TOTAL PROTEIN 6.5 gm/dL (6.4-8.2)
[2017-09-28 17:48] LABS: BILIRUBIN NEGATIVE (NEGATIVE); BLOOD NEGATIVE (NEGATIVE); CLARITY SL CLOUDY (CLEAR); COLOR YELLOW (YELLOW); GLUCOSE 3+ (NEGATIVE); KETONE NEGATIVE (NEGATIVE); LEUKO ESTERASE NEGATIVE (NEGATIVE); NITRITE NEGATIVE (NEGATIVE); PH 5.5 (5.0-9.0); SPECIFIC GRAVITY <= 1.005 (1.005-1.030); UROBILINOGEN 0.2 E.U./dl (0.2-1.0)
[2017-09-28 17:59] LABS: BACTERIA TRACE
[2017-09-28 18:00] LABS: MUCOUS 1+; YEAST TRACE
== END 2017-09-28 18:43 | disposition home or self-care (01) ==
LOC: ED 15:43
PROVIDERS: Physician Assistant
DX: N18.9 Chronic kidney disease, unspecified (principal); F17.210 Nicotine dependence, cigarettes, uncomplicated; Z88.1 Allergy status to other antibiotic agents; Z88.5 Allergy status to narcotic agent; Z79.4 Long term (current) use of insulin; Z79.899 Other long term (current) drug therapy; Z90.49 Acquired absence of other specified parts of digestive tract; Z95.1 Presence of aortocoronary bypass graft

== ENCOUNTER 2017-10-02 05:37 | Emergency (ER) | payer OTHER ==
[~2017-10-02] VITALS: Ht 165.1 cm; Wt 81.6 kg
[2017-10-02 06:19] LABS: BASO # 0.1 10*3/uL (0.0-0.1); BASO % 0.5 % (0.0-1.0); EOS # 0.4 10*3/uL (0.0-0.4); EOS % 3.3 % (1.0-4.0); HEMATOCRIT 32.6 % (42.0-52.0); HEMOGLOBIN 10.4 g/dl (14.0-18.0); LYMPH # 2.9 10*3/uL (1.3-4.4); LYMPH % 22.5 % (27.0-41.0); MEAN CELL VOLUME 95.9 fl (80.0-94.0); MEAN CORPUSCULAR HGB 30.6 pg (27.0-31.0); MEAN CORPUSCULAR HGB CONC 31.9 g/dl (33.0-37.0); MEAN PLATELET VOLUME 10.6 fl (9.6-12.3); MONO # 1.3 10*3/uL (0.1-1.0); NEUT # 8.1 10*3/uL (2.3-7.9); PLATELET COUNT AUTOMATED 185 10*3/uL (130-400); RED CELL DISTRI WIDTH 13.9 % (0-14.5); WHITE BLOOD COUNT 12.9 10*3/uL (4.8-10.8)
[2017-10-02 06:26] LABS: INTERNATIONAL NORM RATIO 0.9 (2.0-3.5)
[2017-10-02 06:35] LABS: ALBUMIN 2.7 gm/dl (3.1-4.5); ALKALINE PHOSPHATASE 164 U/L (45-117); BUN 22 mg/dl (7-24); CHLORIDE 101 mmol/L (98-107); CREATININE 1.72 mg/dL (0.70-1.30); LIPASE 191 U/L (73-393); POTASSIUM 4.4 mmol/L (3.5-5.1); SGOT/AST 12 IU/L (3-35); SGPT/ALT 16 U/L (12-78); SODIUM 137 mmol/L (136-145); TOTAL PROTEIN 6.3 gm/dL (6.4-8.2)
[2017-10-02 06:36] LABS: ETHYL ALCOHOL < 3.0 mg/dl (<3); TROPONIN I < 0.015 ng/ml (<0.045)
== END 2017-10-02 07:46 | disposition home or self-care (01) ==
LOC: ED 05:37
PROVIDERS: Emergency Medicine Emergency Medical Services
DX: R10.9 Unspecified abdominal pain (principal); I25.10 Atherosclerotic heart disease of native coronary artery without angina pectoris; I12.9 Hypertensive chronic kidney disease with stage 1 through stage 4 chronic kidney disease, or unspecified chronic kidney disease; N18.3 Chronic kidney disease, stage 3 (moderate); N17.0 Acute kidney failure with tubular necrosis; J44.1 Chronic obstructive pulmonary disease with (acute) exacerbation; F32.9 Major depressive disorder, single episode, unspecified; K21.9 Gastro-esophageal reflux disease without esophagitis; E78.5 Hyperlipidemia, unspecified; F17.210 Nicotine dependence, cigarettes, uncomplicated; Z88.1 Allergy status to other antibiotic agents; Z88.5 Allergy status to narcotic agent; Z79.4 Long term (current) use of insulin; Z79.899 Other long term (current) drug therapy; Z90.49 Acquired absence of other specified parts of digestive tract; Z95.1 Presence of aortocoronary bypass graft; Z68.29 Body mass index [BMI] 29.0-29.9, adult

== ENCOUNTER 2017-12-08 19:14 | Emergency (ER) | payer OTHER ==
[~2017-12-08] VITALS: Ht 170.1 cm; Wt 80.3 kg
[2017-12-08] MEDS ORDERED: CLINDAMYCIN HC300 MG PO (19:44)
== END 2017-12-08 20:16 | disposition home or self-care (01) ==
LOC: ED 19:14
DX: L08.89 Other specified local infections of the skin and subcutaneous tissue (principal); M79.642 Pain in left hand; F17.200 Nicotine dependence, unspecified, uncomplicated; Z88.1 Allergy status to other antibiotic agents; Z88.6 Allergy status to analgesic agent; Z79.899 Other long term (current) drug therapy

== ENCOUNTER → 2017-12-22 | Outpatient (CLI) | payer OTHER ==
[~2017-12-22] MED LIST changes: +CLINDAMYCIN HC300 MG PO
== END | disposition home or self-care (01) ==
LOC: US 12-15 10:30
DX: I95.89 Other hypotension (principal); R42 Dizziness and giddiness; R09.89 Other specified symptoms and signs involving the circulatory and respiratory systems

== ENCOUNTER 2017-12-28 17:30 | Emergency (ER) | payer OTHER ==
[~2017-12-28] VITALS: Ht 170.1 cm; Wt 79.4 kg
[2017-12-28] MEDS ORDERED: ANAPROX DS550 MG PO (19:13)
[2017-12-28] MEDS ORDERED: SEPTDS PO (19:13)
== END 2017-12-28 19:34 | disposition home or self-care (01) ==
LOC: ED 17:30
DX: L08.89 Other specified local infections of the skin and subcutaneous tissue (principal); F17.200 Nicotine dependence, unspecified, uncomplicated; Z88.1 Allergy status to other antibiotic agents; Z88.6 Allergy status to analgesic agent; Z79.899 Other long term (current) drug therapy

== ENCOUNTER 2018-02-25 12:50 | Inpatient (IN) | payer OTHER ==
[~2018-02-25] VITALS: Ht 170.1 cm; Wt 80.3 kg
[~2018-02-25 12:50] MED LIST changes: +ANAPROX DS550 MG PO; +SEPTDS PO
[2018-02-25 12:51] VITALS: BP 143/85
[2018-02-25 13:27] LABS: BASO # 0.1 10*3/uL (0.0-0.1); EOS # 0.3 10*3/uL (0.0-0.4); HEMATOCRIT 37.8 % (42.0-52.0); HEMOGLOBIN 12.4 g/dl (14.0-18.0); LYMPH # 2.5 10*3/uL (1.3-4.4); LYMPH % 23.5 % (27.0-41.0); MEAN CORPUSCULAR HGB 30.2 pg (27.0-31.0); MEAN CORPUSCULAR HGB CONC 32.8 g/dl (33.0-37.0); MEAN PLATELET VOLUME 11.7 fl (9.6-12.3); MONO % 9.1 % (3.0-9.0); NEUT # 6.8 10*3/uL (2.3-7.9); PLATELET COUNT AUTOMATED 205 10*3/uL (130-400); RED BLOOD COUNT 4.11 10*6/uL (4.50-5.90); RED CELL DISTRI WIDTH 14.4 % (0-14.5); WHITE BLOOD COUNT 10.7 10*3/uL (4.8-10.8)
[2018-02-25 13:36] LABS: INTERNATIONAL NORM RATIO 0.9 (2.0-3.5)
[2018-02-25 13:44] LABS: ALBUMIN 3.3 gm/dl (3.1-4.5); CREATININE 2.2 mg/dL (0.70-1.30); POTASSIUM 4.3 mmol/L (3.5-5.1)
[2018-02-25 14:37] VITALS: BP 116/78
[2018-02-25 15:19] VITALS: BP 107/68
[2018-02-25 16:00] VITALS: BP 108/63
[2018-02-25 20:00] VITALS: BP 106/58
== END 2018-02-25 22:00 | disposition left against medical advice (07) | DRG 871 ==
LOC: ED 12:50 → EDHOLD 14:25 → 4E 14:44
PROVIDERS: Nurse Practitioner Family
DX: A41.9 Sepsis, unspecified organism (principal); J18.1 Lobar pneumonia, unspecified organism; E43 Unspecified severe protein-calorie malnutrition; N17.9 Acute kidney failure, unspecified; N18.3 Chronic kidney disease, stage 3 (moderate); F17.210 Nicotine dependence, cigarettes, uncomplicated; D50.9 Iron deficiency anemia, unspecified; E87.1 Hypo-osmolality and hyponatremia; J44.0 Chronic obstructive pulmonary disease with (acute) lower respiratory infection; E78.2 Mixed hyperlipidemia; R73.9 Hyperglycemia, unspecified; R65.20 Severe sepsis without septic shock; Z53.21 Procedure and treatment not carried out due to patient leaving prior to being seen by health care provider; I25.10 Atherosclerotic heart disease of native coronary artery without angina pectoris; F41.9 Anxiety disorder, unspecified; I12.9 Hypertensive chronic kidney disease with stage 1 through stage 4 chronic kidney disease, or unspecified chronic kidney disease; Z79.51 Long term (current) use of inhaled steroids; Z79.899 Other long term (current) drug therapy; Z95.1 Presence of aortocoronary bypass graft; Z90.49 Acquired absence of other specified parts of digestive tract; Z95.5 Presence of coronary angioplasty implant and graft; Z86.73 Personal history of transient ischemic attack (TIA), and cerebral infarction without residual deficits; Z88.1 Allergy status to other antibiotic agents; Z88.6 Allergy status to analgesic agent; Z79.4 Long term (current) use of insulin; Z82.49 Family history of ischemic heart disease and other diseases of the circulatory system; Z80.8 Family history of malignant neoplasm of other organs or systems

== ENCOUNTER 2018-04-06 16:25 | Emergency (ER) | payer OTHER ==
[~2018-04-06] VITALS: Ht 170.1 cm; Wt 78.0 kg
[~2018-04-06 16:25] MED LIST changes: -HUMALOG KW200 UNIT/1 SQ; -NEURONTIN600 MG PO; -NOVOLOG MI100 UNIT/1 SQ
[2018-04-06 17:02] LABS: BASO # 0.1 10*3/uL (0.0-0.1); BASO % 0.4 % (0.0-1.0); EOS # 0.2 10*3/uL (0.0-0.4); HEMATOCRIT 37.3 % (42.0-52.0); HEMOGLOBIN 12.6 g/dl (14.0-18.0); LYMPH % 19.4 % (27.0-41.0); MEAN CELL VOLUME 89.4 fl (80.0-94.0); MEAN CORPUSCULAR HGB 30.2 pg (27.0-31.0); MEAN CORPUSCULAR HGB CONC 33.8 g/dl (33.0-37.0); MEAN PLATELET VOLUME 11.8 fl (9.6-12.3); MONO # 1.3 10*3/uL (0.1-1.0); MONO % 8.3 % (3.0-9.0); NEUT # 10.9 10*3/uL (2.3-7.9); NEUT % 70.4 % (47.0-73.0); PLATELET COUNT AUTOMATED 252 10*3/uL (130-400); RED BLOOD COUNT 4.17 10*6/uL (4.50-5.90); RED CELL DISTRI WIDTH 13.3 % (0-14.5); WHITE BLOOD COUNT 15.5 10*3/uL (4.8-10.8)
[2018-04-06] MEDS ORDERED: NEURONTIN600 MG PO ×2 (17:06→17:07)
[2018-04-06] MEDS ORDERED: NOVOLOG MI100 UNIT/1 SQ (17:08)
[2018-04-06] MEDS ORDERED: HUMALOG KW200 UNIT/1 SQ (17:12)
[2018-04-06 17:16] LABS: ALBUMIN 3.2 gm/dl (3.1-4.5); CREATININE 1.99 mg/dL (0.70-1.30); POTASSIUM 5.1 mmol/L (3.5-5.1); TOTAL PROTEIN 7.7 gm/dL (6.4-8.2)
== END 2018-04-06 20:23 | disposition home or self-care (01) ==
LOC: ED 16:25
PROVIDERS: Physician Assistant
DX: E11.9 Type 2 diabetes mellitus without complications (principal); F17.200 Nicotine dependence, unspecified, uncomplicated; Z90.49 Acquired absence of other specified parts of digestive tract; Z95.5 Presence of coronary angioplasty implant and graft; Z95.1 Presence of aortocoronary bypass graft; Z98.890 Other specified postprocedural states; Z79.4 Long term (current) use of insulin; Z79.899 Other long term (current) drug therapy; Z88.1 Allergy status to other antibiotic agents; Z88.6 Allergy status to analgesic agent; Z88.8 Allergy status to other drugs, medicaments and biological substances

== ENCOUNTER → 2018-04-06 | Outpatient (CLI) | payer OTHER ==
[~2018-04-06] MED LIST changes: +HUMALOG KW200 UNIT/1 SQ; +NEURONTIN600 MG PO; +NOVOLOG MI100 UNIT/1 SQ
[2018-04-06 14:35] LABS: HEMATOCRIT 37.2 % (42.0-52.0); HEMOGLOBIN 12.7 g/dl (14.0-18.0)
[2018-04-06 14:48] LABS: CREATININE 1.99 mg/dL (0.70-1.30); POTASSIUM 4.3 mmol/L (3.5-5.1)
[2018-04-06 16:10] LABS: PTH INTACT 135.9 pg/mL (14.0-72.0); VITAMIN D, 25-HYDROXY 23.2 ng/mL (30-100)
[2018-04-06 17:30] LABS: BILIRUBIN NEGATIVE (NEGATIVE); BLOOD NEGATIVE (NEGATIVE); CLARITY CLEAR (CLEAR); COLOR YELLOW (YELLOW); GLUCOSE 3+ (NEGATIVE); KETONE NEGATIVE (NEGATIVE); LEUKO ESTERASE NEGATIVE (NEGATIVE); NITRITE NEGATIVE (NEGATIVE); SPECIFIC GRAVITY 1.015 (1.005-1.030); UROBILINOGEN 0.2 E.U./dl (0.2-1.0)
[2018-04-06 17:42] LABS: EPITHELIAL CELLS 0-2; WBC 0-2 wbc/hpf (0-5)
[2018-04-06 17:43] LABS: YEAST 1+
[2018-04-07 10:07] LABS: CREATININE,URINE 35.2 mg/dL (Not Estab.); MICRO ALBUMIN/CRE RATIO 17.9 (0.0-30.0)
== END | disposition home or self-care (01) ==
LOC: LAB 14:13
PROVIDERS: Internal Medicine Nephrology
DX: N18.3 Chronic kidney disease, stage 3 (moderate) (principal)

== ENCOUNTER 2018-04-10 22:26 | Emergency (ER) | payer OTHER ==
[~2018-04-10] VITALS: Ht 170.1 cm; Wt 77.1 kg
[~2018-04-10 22:26] MED LIST changes: +HUMALOG KW200 UNIT/1 SQ; +NEURONTIN600 MG PO; +NOVOLOG MI100 UNIT/1 SQ
[2018-04-10 23:38] LABS: BASO # 0.1 10*3/uL (0.0-0.1); BASO % 0.8 % (0.0-1.0); EOS # 0.3 10*3/uL (0.0-0.4); EOS % 2.2 % (1.0-4.0); HEMATOCRIT 38.4 % (42.0-52.0); HEMOGLOBIN 12.6 g/dl (14.0-18.0); LYMPH # 3.9 10*3/uL (1.3-4.4); LYMPH % 25.7 % (27.0-41.0); MEAN CELL VOLUME 91.2 fl (80.0-94.0); MEAN CORPUSCULAR HGB 29.9 pg (27.0-31.0); MEAN CORPUSCULAR HGB CONC 32.8 g/dl (33.0-37.0); MEAN PLATELET VOLUME 11.3 fl (9.6-12.3); MONO # 1.1 10*3/uL (0.1-1.0); MONO % 7.1 % (3.0-9.0); NEUT # 9.7 10*3/uL (2.3-7.9); NEUT % 63.7 % (47.0-73.0); PLATELET COUNT AUTOMATED 227 10*3/uL (130-400); RED BLOOD COUNT 4.21 10*6/uL (4.50-5.90); RED CELL DISTRI WIDTH 13.5 % (0-14.5); WHITE BLOOD COUNT 15.2 10*3/uL (4.8-10.8)
[2018-04-10 23:53] LABS: ALBUMIN 3.1 gm/dl (3.1-4.5); CREATININE 1.81 mg/dL (0.70-1.30); POTASSIUM 4.4 mmol/L (3.5-5.1); TOTAL PROTEIN 7.2 gm/dL (6.4-8.2)
[2018-04-11 00:10] LABS: BILIRUBIN NEGATIVE (NEGATIVE); BLOOD 2+ (NEGATIVE); CLARITY CLEAR (CLEAR); COLOR YELLOW (YELLOW); GLUCOSE NEGATIVE (NEGATIVE); KETONE NEGATIVE (NEGATIVE); LEUKO ESTERASE 1+ (NEGATIVE); NITRITE NEGATIVE (NEGATIVE); PH 5.5 (5.0-9.0); SPECIFIC GRAVITY <= 1.005 (1.005-1.030); UROBILINOGEN 0.2 E.U./dl (0.2-1.0)
[2018-04-11 00:19] LABS: BACTERIA 2+
[2018-04-11] MEDS ORDERED: SEPTDS PO (00:57)
== END 2018-04-11 01:02 | disposition home or self-care (01) ==
LOC: ED 22:26
PROVIDERS: Nurse Practitioner Family
DX: N39.0 Urinary tract infection, site not specified (principal); K59.00 Constipation, unspecified; I12.9 Hypertensive chronic kidney disease with stage 1 through stage 4 chronic kidney disease, or unspecified chronic kidney disease; E11.22 Type 2 diabetes mellitus with diabetic chronic kidney disease; N18.3 Chronic kidney disease, stage 3 (moderate); J44.9 Chronic obstructive pulmonary disease, unspecified; I25.10 Atherosclerotic heart disease of native coronary artery without angina pectoris; K21.9 Gastro-esophageal reflux disease without esophagitis; E78.2 Mixed hyperlipidemia; E66.3 Overweight; F17.200 Nicotine dependence, unspecified, uncomplicated; Z88.8 Allergy status to other drugs, medicaments and biological substances; Z79.02 Long term (current) use of antithrombotics/antiplatelets; Z79.899 Other long term (current) drug therapy; Z68.25 Body mass index [BMI] 25.0-25.9, adult; Z90.49 Acquired absence of other specified parts of digestive tract; Z95.1 Presence of aortocoronary bypass graft; Z88.1 Allergy status to other antibiotic agents; Z88.6 Allergy status to analgesic agent; Z79.4 Long term (current) use of insulin; Z86.73 Personal history of transient ischemic attack (TIA), and cerebral infarction without residual deficits

== ENCOUNTER 2018-04-25 19:38 | Emergency (ER) | payer OTHER ==
[~2018-04-25] VITALS: Ht 170.1 cm; Wt 79.4 kg
[2018-04-25 20:50] LABS: BASO # 0.1 10*3/uL (0.0-0.1); BASO % 0.9 % (0.0-1.0); EOS # 0.3 10*3/uL (0.0-0.4); EOS % 2.3 % (1.0-4.0); HEMATOCRIT 39.2 % (42.0-52.0); HEMOGLOBIN 12.9 g/dl (14.0-18.0); LYMPH # 2.6 10*3/uL (1.3-4.4); LYMPH % 23.2 % (27.0-41.0); MEAN CELL VOLUME 90.7 fl (80.0-94.0); MEAN CORPUSCULAR HGB 29.9 pg (27.0-31.0); MEAN CORPUSCULAR HGB CONC 32.9 g/dl (33.0-37.0); MEAN PLATELET VOLUME 11.2 fl (9.6-12.3); MONO % 9.2 % (3.0-9.0); NEUT # 7.3 10*3/uL (2.3-7.9); PLATELET COUNT AUTOMATED 212 10*3/uL (130-400); RED BLOOD COUNT 4.32 10*6/uL (4.50-5.90); RED CELL DISTRI WIDTH 13.2 % (0-14.5); WHITE BLOOD COUNT 11.3 10*3/uL (4.8-10.8)
[2018-04-25 21:01] LABS: INTERNATIONAL NORM RATIO 0.9 (2.0-3.5)
[2018-04-25 21:05] LABS: ALBUMIN 3.2 gm/dl (3.1-4.5); ALKALINE PHOSPHATASE 198 U/L (45-117); BUN 36 mg/dl (7-24); CHLORIDE 101 mmol/L (98-107); POTASSIUM 4.8 mmol/L (3.5-5.1); SGOT/AST 14 IU/L (3-35); SGPT/ALT 23 U/L (12-78); SODIUM 135 mmol/L (136-145)
[2018-04-25 21:07] LABS: B-hCG (QUALITATIVE) NEGATIVE
[2018-04-25 21:11] LABS: ETHYL ALCOHOL < 3.0 mg/dl (<3)
[2018-06-18] MEDS ORDERED: LANTUS SOL100 UNIT/1 SQ (00:17)
[2018-06-18] MEDS ORDERED: REQUIP3 M1 PO (00:57)
== END 2018-04-25 22:03 | disposition left against medical advice (07) ==
LOC: ED 19:38
PROVIDERS: Emergency Medicine Emergency Medical Services
DX: T67.1XXA Heat syncope, initial encounter (principal); R55 Syncope and collapse; I25.10 Atherosclerotic heart disease of native coronary artery without angina pectoris; K21.9 Gastro-esophageal reflux disease without esophagitis; Z86.73 Personal history of transient ischemic attack (TIA), and cerebral infarction without residual deficits; E66.9 Obesity, unspecified; J44.9 Chronic obstructive pulmonary disease, unspecified; I12.9 Hypertensive chronic kidney disease with stage 1 through stage 4 chronic kidney disease, or unspecified chronic kidney disease; E11.22 Type 2 diabetes mellitus with diabetic chronic kidney disease; N18.3 Chronic kidney disease, stage 3 (moderate); E78.2 Mixed hyperlipidemia; Z88.1 Allergy status to other antibiotic agents; Z88.6 Allergy status to analgesic agent; Z88.8 Allergy status to other drugs, medicaments and biological substances; Z79.899 Other long term (current) drug therapy; Z68.29 Body mass index [BMI] 29.0-29.9, adult; Z79.4 Long term (current) use of insulin; X58.XXXA Exposure to other specified factors, initial encounter; Y93.11 Activity, swimming; Y92.34 Swimming pool (public) as the place of occurrence of the external cause; Y99.8 Other external cause status

== ENCOUNTER 2018-05-06 18:32 | Emergency (ER) | payer OTHER ==
[~2018-05-06] VITALS: Ht 170.1 cm; Wt 79.4 kg
[2018-05-06] MEDS ORDERED: VIBRAMYCIN100 MG PO (18:45)
[2018-06-18] MEDS ORDERED: LANTUS SOL100 UNIT/1 SQ (00:17)
[2018-06-18] MEDS ORDERED: REQUIP3 M1 PO (00:57)
== END 2018-05-06 19:09 | disposition home or self-care (01) ==
LOC: ED 18:32
DX: L02.213 Cutaneous abscess of chest wall (principal); I25.10 Atherosclerotic heart disease of native coronary artery without angina pectoris; I12.9 Hypertensive chronic kidney disease with stage 1 through stage 4 chronic kidney disease, or unspecified chronic kidney disease; N18.3 Chronic kidney disease, stage 3 (moderate); J44.9 Chronic obstructive pulmonary disease, unspecified; K21.9 Gastro-esophageal reflux disease without esophagitis; E78.2 Mixed hyperlipidemia; E66.3 Overweight; F17.200 Nicotine dependence, unspecified, uncomplicated; Z95.1 Presence of aortocoronary bypass graft; Z68.29 Body mass index [BMI] 29.0-29.9, adult; Z90.49 Acquired absence of other specified parts of digestive tract; Z95.5 Presence of coronary angioplasty implant and graft; Z98.890 Other specified postprocedural states; Z79.4 Long term (current) use of insulin; Z79.899 Other long term (current) drug therapy; Z88.8 Allergy status to other drugs, medicaments and biological substances; Z88.6 Allergy status to analgesic agent; Z86.73 Personal history of transient ischemic attack (TIA), and cerebral infarction without residual deficits

== ENCOUNTER → 2018-05-13 | Outpatient (CLI) | payer OTHER ==
[~2018-05-13] MED LIST changes: +REQUIP3 M1 PO
== END | disposition home or self-care (01) ==
LOC: RAD 14:54
DX: R07.81 Pleurodynia (principal); V89.2XXA Person injured in unspecified motor-vehicle accident, traffic, initial encounter; Y93.89 Activity, other specified; Y92.89 Other specified places as the place of occurrence of the external cause; Y99.8 Other external cause status

== ENCOUNTER 2018-05-20 01:19 | Emergency (ER) | payer OTHER ==
[~2018-05-20] VITALS: Ht 170.1 cm; Wt 78.9 kg
--- NOTE | ~2018-05-20 | EKG ---
[place], [place] ELECTROCARDIOGRAM REPORT NAME: ADAM NICHOLAS UNIT #: [id number] ROOM: DOCTOR: EPIPHANY DRAFT REPORT BIRTHDATE: [birth year] [facility] Test Date: 2018-05-20 Test Time: 01:23:28 Pat Name: ADAM NICHOLAS Department: ED Room: 2 Gender: M Psych Tech: EVANGELISTA : 1960 Requested By: JOHNNY PEARSON Order Number: [id number] Reading MD: Nicol Londono MD Measurements Intervals [place] Rate: 107 P: 80 PA: 174 QRS: -54 QRSD: 140 T: 47 QT: 368 QTc: 491 Interpretive Statements Sinus tachycardia RBBB and LAFB Baseline wander in lead(s) V1 Electronically Signed On 05-21-2018 11:10:22 PDT by Nicol Londono MD CM:EKGRPT:ELECTROCARDIOGRAM REPORT [id number] JOHNNY PEARSON MD EPIPHANY DRAFT REPORT JOHNNY PEARSON MD
[~2018-05-20 01:19] MED LIST changes: -REQUIP3 M1 PO
[2018-05-20 01:28] LABS: BASO # 0.1 10*3/uL (0.0-0.1); BASO % 0.9 % (0.0-1.0); EOS # 0.3 10*3/uL (0.0-0.4); EOS % 2.8 % (1.0-4.0); HEMATOCRIT 38.8 % (42.0-52.0); HEMOGLOBIN 12.7 g/dl (14.0-18.0); LYMPH # 3.2 10*3/uL (1.3-4.4); MEAN CELL VOLUME 92.2 fl (80.0-94.0); MEAN CORPUSCULAR HGB 30.2 pg (27.0-31.0); MEAN CORPUSCULAR HGB CONC 32.7 g/dl (33.0-37.0); MEAN PLATELET VOLUME 11.4 fl (9.6-12.3); MONO # 1.1 10*3/uL (0.1-1.0); MONO % 9.4 % (3.0-9.0); NEUT % 59.3 % (47.0-73.0); PLATELET COUNT AUTOMATED 227 10*3/uL (130-400); RED BLOOD COUNT 4.21 10*6/uL (4.50-5.90); WHITE BLOOD COUNT 11.8 10*3/uL (4.8-10.8)
[2018-05-20 01:38] LABS: ACT PARTIAL THROMBO TIME 23.4 SECONDS (20.8-31.5); INTERNATIONAL NORM RATIO 0.9 (2.0-3.5)
[2018-05-20 01:45] LABS: ALBUMIN 3.2 gm/dl (3.1-4.5); ALKALINE PHOSPHATASE 180 U/L (45-117); BUN 23 mg/dl (7-24); CHLORIDE 96 mmol/L (98-107); CREATININE 2.12 mg/dL (0.70-1.30); POTASSIUM 4.3 mmol/L (3.5-5.1); SGOT/AST 14 IU/L (3-35); SGPT/ALT 19 U/L (12-78); SODIUM 133 mmol/L (136-145)
[2018-05-20 01:49] LABS: TROPONIN I < 0.015 ng/ml (<0.045)
[2018-06-18] MEDS ORDERED: LANTUS SOL100 UNIT/1 SQ (00:17)
[2018-06-18] MEDS ORDERED: REQUIP3 M1 PO (00:57)
== END 2018-05-20 04:06 | disposition home or self-care (01) ==
LOC: ED 01:19
PROVIDERS: Emergency Medicine Emergency Medical Services
DX: R07.9 Chest pain, unspecified (principal); R11.0 Nausea; I25.10 Atherosclerotic heart disease of native coronary artery without angina pectoris; I12.9 Hypertensive chronic kidney disease with stage 1 through stage 4 chronic kidney disease, or unspecified chronic kidney disease; N18.3 Chronic kidney disease, stage 3 (moderate); J44.9 Chronic obstructive pulmonary disease, unspecified; K21.9 Gastro-esophageal reflux disease without esophagitis; E78.2 Mixed hyperlipidemia; Z95.1 Presence of aortocoronary bypass graft; Z86.73 Personal history of transient ischemic attack (TIA), and cerebral infarction without residual deficits; F17.200 Nicotine dependence, unspecified, uncomplicated; Z95.5 Presence of coronary angioplasty implant and graft; Z79.899 Other long term (current) drug therapy; Z88.8 Allergy status to other drugs, medicaments and biological substances; Z88.1 Allergy status to other antibiotic agents; Z88.6 Allergy status to analgesic agent

== ENCOUNTER 2018-07-30 18:59 | Inpatient (IN) | payer OTHER ==
[~2018-07-30] VITALS: Ht 167.6 cm; Wt 79.8 kg
--- NOTE | ~2018-07-30 | EKG ---
[place], [place] ELECTROCARDIOGRAM REPORT NAME: ADAM NICHOLAS UNIT #: [id number] ROOM: 406 DOCTOR: BILLY DRAFT REPORT BIRTHDATE: [address] 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
[~2018-07-30 18:59] MED LIST changes: +Ipratropium Brom3 ML INH; +REQUIP3 M1 PO
[2018-07-30 19:00] VITALS: BP 115/63
[2018-07-30 19:36] LABS: HEMATOCRIT 33.2 % (42.0-52.0); HEMOGLOBIN 10.8 g/dl (14.0-18.0); MEAN CELL VOLUME 87.8 fl (80.0-94.0); MEAN CORPUSCULAR HGB 28.6 pg (27.0-31.0); MEAN CORPUSCULAR HGB CONC 32.5 g/dl (33.0-37.0); MEAN PLATELET VOLUME 11.9 fl (9.6-12.3); PLATELET COUNT AUTOMATED 212 10*3/uL (130-400); RED BLOOD COUNT 3.78 10*6/uL (4.50-5.90); RED CELL DISTRI WIDTH 13.9 % (0-14.5); WHITE BLOOD COUNT 12.8 10*3/uL (4.8-10.8)
[2018-07-30 19:53] LABS: ALBUMIN 3.1 gm/dl (3.1-4.5); CREATININE 1.96 mg/dL (0.70-1.30); POTASSIUM 4.5 mmol/L (3.5-5.1); TOTAL PROTEIN 7.3 gm/dL (6.4-8.2)
[2018-07-30 19:57] LABS: TROPONIN I 0.016 ng/ml (<0.045)
[2018-07-30 20:00] VITALS: BP 126/52
[2018-07-30 20:07] LABS: BASOPHILS 2 % (0-1); TOTAL CELLS COUNTED 100 #CELLS
[2018-07-30 20:08] LABS: PLATELET SUFFICIENCY NORMAL (NORMAL); POLYCHROMASIA SLIGHT
[2018-07-30 21:54] VITALS: BP 126/52
[2018-08-10] MEDS ORDERED: TESSALON PERLE100 MG PO (14:27)
[2018-08-10] MEDS ORDERED: ROBAXIN-750750 MG PO (14:28)
[2018-08-10] MEDS ORDERED: HYDROCODON-ACE1 EACH PO (14:29)
[2018-08-10] MEDS ORDERED: LIPITOR80 MG PO (14:30)
[2018-08-10] MEDS ORDERED: ASPIRIN CHEWABL81 MG PO (14:31)
[2018-08-10] MEDS ORDERED: Zofran4 MG SL (14:32)
[2018-08-10] MEDS ORDERED: PAROXETINE HCL40 MG PO (18:02)
[2018-08-10] MEDS ORDERED: METFORMIN HYDR500 MG PO (18:04)
[2018-08-10] MEDS ORDERED: GLIPIZIDE10 M2 PO (18:04)
[2018-08-10] MEDS ORDERED: BUSPAR15 MG PO (18:05)
[2018-08-10] MEDS ORDERED: PROVENTIL HFA6.7 GM INH (18:07)
[2018-08-14] MEDS ORDERED: AZITHROMYCIN500 M1 IV (21:03)
[2018-08-14] MEDS ORDERED: CEFTRIAXONE1 GM IJ (21:03)
[2018-08-15] MEDS ORDERED: PREDNISONE10 MG PO (05:22)
== END 2018-07-31 01:32 | disposition left against medical advice (07) | DRG 192 ==
LOC: ED 18:59 → EDHOLD 21:24 → 4E 21:24
PROVIDERS: Emergency Medicine
DX: J44.1 Chronic obstructive pulmonary disease with (acute) exacerbation (principal); F41.9 Anxiety disorder, unspecified; I25.10 Atherosclerotic heart disease of native coronary artery without angina pectoris; N18.3 Chronic kidney disease, stage 3 (moderate); F32.9 Major depressive disorder, single episode, unspecified; K21.9 Gastro-esophageal reflux disease without esophagitis; F17.210 Nicotine dependence, cigarettes, uncomplicated; E78.2 Mixed hyperlipidemia; Z53.21 Procedure and treatment not carried out due to patient leaving prior to being seen by health care provider; I12.9 Hypertensive chronic kidney disease with stage 1 through stage 4 chronic kidney disease, or unspecified chronic kidney disease; E66.3 Overweight; Z87.01 Personal history of pneumonia (recurrent); Z88.1 Allergy status to other antibiotic agents; Z88.8 Allergy status to other drugs, medicaments and biological substances; Z86.73 Personal history of transient ischemic attack (TIA), and cerebral infarction without residual deficits; Z79.899 Other long term (current) drug therapy; Z87.440 Personal history of urinary (tract) infections; Z90.49 Acquired absence of other specified parts of digestive tract; Z95.1 Presence of aortocoronary bypass graft; Z95.5 Presence of coronary angioplasty implant and graft; Z95.828 Presence of other vascular implants and grafts; Z83.3 Family history of diabetes mellitus; Z80.9 Family history of malignant neoplasm, unspecified; Z82.49 Family history of ischemic heart disease and other diseases of the circulatory system; Z68.27 Body mass index [BMI] 27.0-27.9, adult; J40 Bronchitis, not specified as acute or chronic

== ENCOUNTER 2018-08-06 19:30 | Inpatient (IN) | payer OTHER ==
[~2018-08-06] VITALS: Ht 170.1 cm; Wt 80.0 kg
--- NOTE | ~2018-08-06 | EKG ---
[place], [place] ELECTROCARDIOGRAM REPORT NAME: ADAM NICHOLAS UNIT #: [id number] ROOM: 415 DOCTOR: BILLY DRAFT REPORT BIRTHDATE: [birth year] [facility] Test Date: 2018-08-06 Test Time: 20:00:18 Pat Name: ADAM NICHOLAS Department: ER Room: 415 Gender: M Transfer Car Operator: Alnoso Gutierrez : 1960 Requested By: AMADOR DIAS Order Number: [id number] Reading MD: Jarred Gomez MD Measurements Intervals [place] Rate: 109 P: 67 WV: 175 QRS: -53 QRSD: 135 T: 60 QT: 355 QTc: 479 Interpretive Statements Sinus tachycardia RBBB and LAFB Baseline wander in lead(s) I,II,aVR,V4,V5 Compared to ECG 07/30/2018 19:37:57 Electronically Signed On 08-08-2018 14:46:58 PDT by Jarred Gomez MD CM:EKGRPT:ELECTROCARDIOGRAM REPORT [id number] AMADOR WASSERMAN DRAFT REPORT AMADOR DIAS DO
[2018-08-06 19:32] VITALS: BP 116/90
[2018-08-06 20:05] LABS: BASO # 0.1 10*3/uL (0.0-0.1); BASO % 0.4 % (0.0-1.0); EOS # 0.4 10*3/uL (0.0-0.4); EOS % 2.9 % (1.0-4.0); HEMATOCRIT 35.4 % (42.0-52.0); HEMOGLOBIN 11.1 g/dl (14.0-18.0); LYMPH # 2.5 10*3/uL (1.3-4.4); LYMPH % 17.9 % (27.0-41.0); MEAN CELL VOLUME 89.4 fl (80.0-94.0); MEAN CORPUSCULAR HGB CONC 31.4 g/dl (33.0-37.0); MEAN PLATELET VOLUME 11.5 fl (9.6-12.3); MONO % 7.4 % (3.0-9.0); NEUT % 70.8 % (47.0-73.0); PLATELET COUNT AUTOMATED 281 10*3/uL (130-400); RED BLOOD COUNT 3.96 10*6/uL (4.50-5.90); WHITE BLOOD COUNT 14.1 10*3/uL (4.8-10.8)
[2018-08-06 20:22] LABS: ALBUMIN 3.2 gm/dl (3.1-4.5); CREATININE 1.64 mg/dL (0.70-1.30); POTASSIUM 4.6 mmol/L (3.5-5.1); TOTAL PROTEIN 7.6 gm/dL (6.4-8.2)
[2018-08-06 20:23] LABS: TROPONIN I 0.025 ng/ml (<0.045)
[2018-08-06 21:46] VITALS: BP 106/65
[2018-08-07] VITALS: BP 127/74
[2018-08-07] MEDS ORDERED: HUMALOG100 UNIT/1 SQ (00:17)
[2018-08-10] MEDS ORDERED: TESSALON PERLE100 MG PO (14:27)
[2018-08-10] MEDS ORDERED: ROBAXIN-750750 MG PO (14:28)
[2018-08-10] MEDS ORDERED: HYDROCODON-ACE1 EACH PO (14:29)
[2018-08-10] MEDS ORDERED: LIPITOR80 MG PO (14:30)
[2018-08-10] MEDS ORDERED: ASPIRIN CHEWABL81 MG PO (14:31)
[2018-08-10] MEDS ORDERED: Zofran4 MG SL (14:32)
[2018-08-10] MEDS ORDERED: PAROXETINE HCL40 MG PO (18:02)
[2018-08-10] MEDS ORDERED: METFORMIN HYDR500 MG PO (18:04)
[2018-08-10] MEDS ORDERED: GLIPIZIDE10 M2 PO (18:04)
[2018-08-10] MEDS ORDERED: BUSPAR15 MG PO (18:05)
[2018-08-10] MEDS ORDERED: PROVENTIL HFA6.7 GM INH (18:07)
[2018-08-14] MEDS ORDERED: AZITHROMYCIN500 M1 IV (21:03)
[2018-08-14] MEDS ORDERED: CEFTRIAXONE1 GM IJ (21:03)
[2018-08-15] MEDS ORDERED: PREDNISONE10 MG PO (05:22)
== END 2018-08-07 01:31 | disposition left against medical advice (07) | DRG 871 ==
LOC: ED 19:30 → EDHOLD 21:06 → 4E 21:06
PROVIDERS: Student in an Organized Health Care Education/Training Program
DX: A41.9 Sepsis, unspecified organism (principal); J18.9 Pneumonia, unspecified organism; J96.01 Acute respiratory failure with hypoxia; J44.1 Chronic obstructive pulmonary disease with (acute) exacerbation; F33.9 Major depressive disorder, recurrent, unspecified; K57.92 Diverticulitis of intestine, part unspecified, without perforation or abscess without bleeding; R65.20 Severe sepsis without septic shock; I25.10 Atherosclerotic heart disease of native coronary artery without angina pectoris; N18.3 Chronic kidney disease, stage 3 (moderate); I12.9 Hypertensive chronic kidney disease with stage 1 through stage 4 chronic kidney disease, or unspecified chronic kidney disease; K21.9 Gastro-esophageal reflux disease without esophagitis; E78.2 Mixed hyperlipidemia; E11.22 Type 2 diabetes mellitus with diabetic chronic kidney disease; F17.210 Nicotine dependence, cigarettes, uncomplicated; Z53.21 Procedure and treatment not carried out due to patient leaving prior to being seen by health care provider; D50.9 Iron deficiency anemia, unspecified; E66.3 Overweight; F41.1 Generalized anxiety disorder; Z90.49 Acquired absence of other specified parts of digestive tract; Z95.5 Presence of coronary angioplasty implant and graft; Z95.1 Presence of aortocoronary bypass graft; Z86.73 Personal history of transient ischemic attack (TIA), and cerebral infarction without residual deficits; Z84.89 Family history of other specified conditions; Z82.49 Family history of ischemic heart disease and other diseases of the circulatory system; Z83.3 Family history of diabetes mellitus; Z88.8 Allergy status to other drugs, medicaments and biological substances; Z79.899 Other long term (current) drug therapy; Z79.4 Long term (current) use of insulin; Z80.8 Family history of malignant neoplasm of other organs or systems; I25.2 Old myocardial infarction; Z68.27 Body mass index [BMI] 27.0-27.9, adult

== ENCOUNTER 2018-09-11 18:48 | Emergency (ER) | payer OTHER ==
[~2018-09-11] VITALS: Ht 170.1 cm; Wt 77.1 kg
[2018-09-11] VITALS (7 sets, daily range): BP systolic 88–118; BP diastolic 50–97
[2018-09-11 19:41] LABS: BASO # 0.1 10*3/uL (0.0-0.1); BASO % 0.8 % (0.0-1.0); EOS # 0.3 10*3/uL (0.0-0.4); EOS % 2.8 % (1.0-4.0); HEMATOCRIT 31.8 % (42.0-52.0); HEMOGLOBIN 9.9 g/dl (14.0-18.0); LYMPH # 2.4 10*3/uL (1.3-4.4); LYMPH % 27.1 % (27.0-41.0); MEAN CELL VOLUME 85.3 fl (80.0-94.0); MEAN CORPUSCULAR HGB 26.5 pg (27.0-31.0); MEAN CORPUSCULAR HGB CONC 31.1 g/dl (33.0-37.0); MEAN PLATELET VOLUME 11.8 fl (9.6-12.3); MONO # 0.8 10*3/uL (0.1-1.0); MONO % 8.5 % (3.0-9.0); NEUT # 5.5 10*3/uL (2.3-7.9); NEUT % 60.6 % (47.0-73.0); PLATELET COUNT AUTOMATED 262 10*3/uL (130-400); RED BLOOD COUNT 3.73 10*6/uL (4.50-5.90)
[2018-09-11 19:55] LABS: ALBUMIN 2.8 gm/dl (3.1-4.5); CREATININE 2.04 mg/dL (0.70-1.30); POTASSIUM 5.1 mmol/L (3.5-5.1); TOTAL PROTEIN 7.3 gm/dL (6.4-8.2)
[2018-09-11 19:58] LABS: BILIRUBIN NEGATIVE (NEGATIVE); BLOOD NEGATIVE (NEGATIVE); CLARITY CLEAR (CLEAR); COLOR YELLOW (YELLOW); GLUCOSE 3+ (NEGATIVE); KETONE NEGATIVE (NEGATIVE); LEUKO ESTERASE TRACE (NEGATIVE); NITRITE NEGATIVE (NEGATIVE); UROBILINOGEN 0.2 E.U./dl (0.2-1.0)
[2018-09-11 20:08] LABS: RBC 0-2 rbc/hpf (0-2); YEAST 1+
== END 2018-09-11 23:43 | disposition left against medical advice (07) ==
LOC: ED 18:48 → EDHOLD 22:58 → ED 23:43
PROVIDERS: Emergency Medicine
DX: E11.65 Type 2 diabetes mellitus with hyperglycemia (principal); E86.0 Dehydration; E11.22 Type 2 diabetes mellitus with diabetic chronic kidney disease; I12.9 Hypertensive chronic kidney disease with stage 1 through stage 4 chronic kidney disease, or unspecified chronic kidney disease; N18.3 Chronic kidney disease, stage 3 (moderate); I25.10 Atherosclerotic heart disease of native coronary artery without angina pectoris; K21.9 Gastro-esophageal reflux disease without esophagitis; E78.2 Mixed hyperlipidemia; F17.200 Nicotine dependence, unspecified, uncomplicated; Z88.8 Allergy status to other drugs, medicaments and biological substances; Z88.6 Allergy status to analgesic agent; Z88.1 Allergy status to other antibiotic agents; Z79.2 Long term (current) use of antibiotics; Z79.899 Other long term (current) drug therapy; Z79.82 Long term (current) use of aspirin; Z79.84 Long term (current) use of oral hypoglycemic drugs; Z79.4 Long term (current) use of insulin; Z86.73 Personal history of transient ischemic attack (TIA), and cerebral infarction without residual deficits; Z90.49 Acquired absence of other specified parts of digestive tract; Z95.1 Presence of aortocoronary bypass graft

== ENCOUNTER → 2018-09-11 | Outpatient (CLI) | payer OTHER ==
[~2018-09-11] MED LIST changes: +ASPIRIN CHEWABL81 MG PO; +AZITHROMYCIN500 M1 IV; +CEFTRIAXONE1 GM IJ; +GLIPIZIDE10 M2 PO; +HUMALOG100 UNIT/1 SQ; +HYDROCODON-ACE1 EACH PO; +LIPITOR80 MG PO; +METFORMIN HYDR500 MG PO; +PAROXETINE HCL40 MG PO; +PROVENTIL HFA6.7 GM INH; +TESSALON PERLE100 MG PO; +Zofran4 MG SL
[2018-09-11 17:23] LABS: CREATININE 1.91 mg/dL (0.70-1.30); PHOSPHOROUS 4.2 mg/dL (2.5-4.9); POTASSIUM 5.6 mmol/L (3.5-5.1)
== END | disposition home or self-care (01) ==
LOC: LAB 16:28
PROVIDERS: Internal Medicine Nephrology
DX: N17.9 Acute kidney failure, unspecified (principal)

== ENCOUNTER → 2018-10-06 | Outpatient (CLI) | payer OTHER ==
[2018-10-06 15:04] LABS: HEMATOCRIT 34.6 % (42.0-52.0); HEMOGLOBIN 10.4 g/dl (14.0-18.0)
[2018-10-06 15:20] LABS: CREATININE 1.78 mg/dL (0.70-1.30); POTASSIUM 4.6 mmol/L (3.5-5.1)
[2018-10-06 17:15] LABS: VITAMIN D, 25-HYDROXY 25.5 ng/mL (30-100)
[2018-10-06 17:16] LABS: PTH INTACT 37.2 pg/mL (18.5-88.0)
== END | disposition home or self-care (01) ==
LOC: LAB 14:32
PROVIDERS: Internal Medicine Nephrology
DX: N17.9 Acute kidney failure, unspecified (principal)

== ENCOUNTER → 2018-10-10 | Outpatient (CLI) | payer OTHER ==
[2018-10-10 13:56] LABS: BILIRUBIN NEGATIVE (NEGATIVE); BLOOD NEGATIVE (NEGATIVE); CLARITY CLEAR (CLEAR); COLOR YELLOW (YELLOW); GLUCOSE 3+ (NEGATIVE); KETONE NEGATIVE (NEGATIVE); LEUKO ESTERASE NEGATIVE (NEGATIVE); NITRITE NEGATIVE (NEGATIVE); PH 5.5 (5.0-9.0); UROBILINOGEN 0.2 E.U./dl (0.2-1.0)
[2018-10-10 14:42] LABS: BACTERIA 1+; EPITHELIAL CELLS TNTC; YEAST 2+
== END | disposition home or self-care (01) ==
LOC: LAB 11:59
PROVIDERS: Internal Medicine Nephrology
DX: N17.9 Acute kidney failure, unspecified (principal)

== ENCOUNTER 2018-11-04 17:48 | Inpatient (IN) | payer OTHER ==
[~2018-11-04] VITALS: Ht 170.1 cm; Wt 79.5 kg
--- NOTE | ~2018-11-04 | EKG ---
[place], [place] ELECTROCARDIOGRAM REPORT NAME: ADAM NICHOLAS UNIT #: [id number] ROOM: 519 DOCTOR: EPIPHANY DRAFT REPORT BIRTHDATE: [birth year] [facility] Test Date: 2018-11-04 Test Time: 18:03:10 Pat Name: ADAM NICHOLAS Department: Room: 519 Gender: M Horse Shoer: CONY : 1960 Requested By: NAHED HUGHES Order Number: [id number] Reading MD: Chanda Gold MD Measurements Intervals [place] Rate: 99 P: 0 WV: 133 QRS: -60 QRSD: 135 T: 84 QT: 366 QTc: 470 Interpretive Statements Sinus rhythm Probable left atrial enlargement RBBB and LAFB Baseline wander in lead(s) V1,V2 Compared to ECG 08/10/2018 13:26:04 Left anterior fascicular block now present Electronically Signed On 11-06-2018 4:52:59 PST by Chanda Gold MD CM:EKGRPT:ELECTROCARDIOGRAM REPORT [id number] NAHED HUGHES EPIPHANY DRAFT REPORT NAHED HUGHES
--- NOTE | ~2018-11-04 | EKG ---
[place], [place] ELECTROCARDIOGRAM REPORT NAME: ADAM NICHOLAS UNIT #: [id number] ROOM: 519 DOCTOR: EPIPHANY DRAFT REPORT BIRTHDATE: [birth year] [facility] Test Date: 2018-11-06 Test Time: 01:57:06 Pat Name: ADAM NICHOLAS Department: Room: [facility] 1 Gender: M Cable Weaver: Alonso Gutierrez : 1960 Requested By: ALEKSANDRA BRIDGES Order Number: [id number] Reading MD: Chanda Gold MD Measurements Intervals [place] Rate: 125 P: 17 MO: 121 QRS: -62 QRSD: 136 T: 75 QT: 326 QTc: 471 Interpretive Statements Sinus tachycardia RBBB and LAFB Baseline wander in lead(s) I,V5 Compared to ECG 08/10/2018 13:26:04 Left anterior fascicular block now present Sinus rhythm no longer present Electronically Signed On 11-06-2018 15:01:27 PST by Chanda Gold MD CM:EKGRPT:ELECTROCARDIOGRAM REPORT [id number] ALEKSANDRA WASSERMAN DRAFT REPORT ALEKSANDRA BRIDGES DO
[2018-11-04 17:49] VITALS: BP 100/67
[2018-11-04 18:12] LABS: BASO # 0.1 10*3/uL (0.0-0.1); BASO % 0.9 % (0.0-1.0); EOS # 0.3 10*3/uL (0.0-0.4); EOS % 2.7 % (1.0-4.0); HEMOGLOBIN 10.7 g/dl (14.0-18.0); LYMPH % 27.2 % (27.0-41.0); MEAN CELL VOLUME 79.7 fl (80.0-94.0); MEAN CORPUSCULAR HGB 24.4 pg (27.0-31.0); MEAN CORPUSCULAR HGB CONC 30.6 g/dl (33.0-37.0); MEAN PLATELET VOLUME 11.5 fl (9.6-12.3); MONO # 1.2 10*3/uL (0.1-1.0); MONO % 10.6 % (3.0-9.0); NEUT # 6.5 10*3/uL (2.3-7.9); NEUT % 58.2 % (47.0-73.0); PLATELET COUNT AUTOMATED 256 10*3/uL (130-400); RED BLOOD COUNT 4.39 10*6/uL (4.50-5.90); RED CELL DISTRI WIDTH 15.9 % (0-14.5); WHITE BLOOD COUNT 11.1 10*3/uL (4.8-10.8)
[2018-11-04 18:27] LABS: ALBUMIN 3.3 gm/dl (3.1-4.5); ALKALINE PHOSPHATASE 155 U/L (45-117); BUN 17 mg/dl (7-24); CHLORIDE 94 mmol/L (98-107); CREATININE 1.74 mg/dL (0.70-1.30); LIPASE 951 U/L (73-393); POTASSIUM 4.7 mmol/L (3.5-5.1); SGOT/AST 15 IU/L (3-35); SGPT/ALT 18 U/L (12-78); SODIUM 131 mmol/L (136-145); TOTAL PROTEIN 7.8 gm/dL (6.4-8.2)
[2018-11-04 18:33] LABS: TROPONIN I < 0.015 ng/ml (<0.045)
[2018-11-04 18:44] LABS: BILIRUBIN NEGATIVE (NEGATIVE); BLOOD 1+ (NEGATIVE); CLARITY CLEAR (CLEAR); COLOR YELLOW (YELLOW); GLUCOSE 3+ (NEGATIVE); KETONE NEGATIVE (NEGATIVE); LEUKO ESTERASE 1+ (NEGATIVE); NITRITE NEGATIVE (NEGATIVE); PH 5.5 (5.0-9.0); UROBILINOGEN 0.2 E.U./dl (0.2-1.0)
[2018-11-04 18:52] LABS: BACTERIA 2+; EPITHELIAL CELLS 0-2; WBC 21-30 wbc/hpf (0-5)
--- NOTE | 2018-11-04 20:35 | NUR ---
A 58, admitted to 5E, under the services of PADMINI Lomeli DO with a diagnosis of ACUTE PANCREATITIS. Chief complaint is N/V/D ABDOMINAL PAIN. Patient arrived via wheel chair from ER. Monitor applied. Initial assessment completed. Vital signs taken and recorded. PADMINI LOMELI DO notified of admission to the unit. Orders received. See assessment for past medical history, medications and allergies. Patient and/or family oriented to unit. [facility] visitation policy reviewed. Clothing/patient valuable form completed. DIEUDONNE PAREDES
--- NOTE | 2018-11-04 20:56 | NUR ---
DR. BRIDGES WAS NOTIFIED OF THE CRITICAL LACTIC ACID OF 4.2. AND ALSO THAT THE PTS BP HAD TO BE HEARD WITH A DOPPLER. ONLY THE TOP NUMBER COULD BE RECORDED. TOP NUMBER WASW HEARD AT 88.
--- NOTE | 2018-11-04 22:00 | NUR ---
DR. BRIDGES WAS NOTIFIED OF TOP NUMBER 88 FOUND WITH DOPPLER AFTER HALF OF BOLUS. AND THE SAME RESULT AFTER FULL BOLUS. DR. BRIDGES ORDER ANOTHER BOLUS. WILL CONTINUE TO MONITOR.
--- NOTE | 2018-11-04 22:47 | NUR ---
DR. BRIDGES INSTRUCTED ME TO TAKE A BP ON PATIENTS ANKLE. BP RESULT 117/87. DR. BRIDGES WAS NOTIFIED OF RESULT. INSTRUCTED TO FINISH BOLUS.
--- NOTE | 2018-11-04 22:50 | NUR ---
PATIENT LEFT FLOOR FOR CT OF ABDOMEN.
--- NOTE | 2018-11-04 23:49 | NUR ---
DR. BRIDGES NOTIFIED OF CRITICAL LAB: LACTIC ACID 2.4
[2018-11-05] VITALS: BP 117/87
--- NOTE | 2018-11-05 | NUR ---
PT REQUESTED AND RECIEVED PRN DILAUDID FOR ABDOMINAL PAIN RATED AT A 7.
--- NOTE | 2018-11-05 01:00 | NUR ---
PT STATES THE PREVIOUS DILAUDID WAS EFFECTIVE.
--- NOTE | 2018-11-05 01:19 | NUR ---
DR. BRIDGES WAS NOTIFIED OF THE MED REC THAT WAS COMPLETED. A COUPLE OF MEDS THE PT DID NOT KNOW DOSAGE SO THEY COULD NOT BE VERIFIED.
--- NOTE | 2018-11-05 02:30 | NUR ---
PT REQUESTED AND RECIEVED PRN DILAUDID FOR ABDOMINAL PAIN RATED AT 7. WILL CONTINUE TO MONITOR.
--- NOTE | 2018-11-05 02:39 | NUR ---
Shift chart check completed.
--- NOTE | 2018-11-05 03:15 | NUR ---
PATIENT STATES RELIEF FROM PREVIOUS ABDOMINAL PAIN. DILAUDID CONSIDERED EFFECTIVE.
--- NOTE | 2018-11-05 05:34 | NUR ---
PATIENT REQUEST AND RECIEVED PRN DILAUDID. ABDOMINAL PAIN RATED 7. WILL CONTINUE TO MONITOR.
[2018-11-05 06:25] LABS: BASO # 0.1 10*3/uL (0.0-0.1); BASO % 0.7 % (0.0-1.0); EOS # 0.2 10*3/uL (0.0-0.4); HEMATOCRIT 29.5 % (42.0-52.0); HEMOGLOBIN 8.9 g/dl (14.0-18.0); LYMPH # 2.3 10*3/uL (1.3-4.4); LYMPH % 20.4 % (27.0-41.0); MEAN CELL VOLUME 80.6 fl (80.0-94.0); MEAN CORPUSCULAR HGB 24.3 pg (27.0-31.0); MEAN CORPUSCULAR HGB CONC 30.2 g/dl (33.0-37.0); MEAN PLATELET VOLUME 11.5 fl (9.6-12.3); MONO # 1.1 10*3/uL (0.1-1.0); MONO % 9.5 % (3.0-9.0); NEUT # 7.5 10*3/uL (2.3-7.9); PLATELET COUNT AUTOMATED 221 10*3/uL (130-400); RED BLOOD COUNT 3.66 10*6/uL (4.50-5.90); RED CELL DISTRI WIDTH 16.2 % (0-14.5); WHITE BLOOD COUNT 11.3 10*3/uL (4.8-10.8)
[2018-11-05 06:42] LABS: ALBUMIN 2.7 gm/dl (3.1-4.5); BUN 12 mg/dl (7-24); CHLORIDE 105 mmol/L (98-107); CREATININE 1.21 mg/dL (0.70-1.30); LIPASE 157 U/L (73-393); POTASSIUM 3.9 mmol/L (3.5-5.1); SGOT/AST 18 IU/L (3-35); SGPT/ALT 16 U/L (12-78); SODIUM 140 mmol/L (136-145); TOTAL PROTEIN 6.3 gm/dL (6.4-8.2); TRIGLYCERIDES 256 mg/dl (<150); VLDL CHOLESTEROL 51 mg/dL (6-40)
[2018-11-05 06:50] LABS: ALKALINE PHOSPHATASE 116 U/L (45-117); CHOLESTEROL 100 mg/dL (<200); HDL CHOLESTEROL 32 mg/dl (40-60); LDL CHOLESTEROL 17 mg/dL (9-159)
[2018-11-05 08:00] VITALS: BP 104/74
[2018-11-05 08:08] LABS: VITAMIN D, 25-HYDROXY 26.2 ng/mL (30-100)
[2018-11-05 12:00] VITALS: BP 100/59
[2018-11-05 16:00] VITALS: BP 142/87
--- NOTE | 2018-11-05 16:28 | NUR ---
DR. OSBORNE WAS NOTIFIED THAT THE PATIENT WAS C/O OF ITCHY FINGER NAILS. PLEASE SEE ORDER HX FOR DETAILS.
[2018-11-05 20:00] VITALS: BP 140/80
--- NOTE | 2018-11-05 20:23 | NUR ---
JUMANAT WOKE UP WHEN I ENTERED THE ROOM. STATES THEY ARE EXPERIENCING PAIN IN THE ABDOMEN. PAIN RATED A 7. PATIENT REQUESTED AND RECIEVED PRN BRITTANY. WILL MONITOR FOR EFFECTIVENESS.
--- NOTE | 2018-11-05 21:30 | NUR ---
PATIENT STATES RELIEF FROM EARLIER PAIN. PRN DILAUDID CONSIDERED EFFECTIVE.
--- NOTE | 2018-11-05 23:19 | NUR ---
PATIENT STATES HE IS HAVING CRAMPS IN STOMACH AND ALSO LEG PAIN. PAIN RATED AT A "STRONG 7, CLOSER TO A 8." PATIENT REQUESTED AND RECIEVED PRN DILAUDID. WILL MONITOR FOR EFFECTIVENESS.
[2018-11-06] VITALS: BP 107/49
--- NOTE | 2018-11-06 00:10 | NUR ---
PATIENT STATES RELIEF FROM PREVIOUS PAIN. PRN MEDS CONSIDERED EFFECTIVE.
--- NOTE | 2018-11-06 02:09 | NUR ---
PATIENTS HR WAS 152 WHEN PATIENT GOT UP TO USE THE RESTROOM. DR. BRIDGES WAS NOTIFIED AND ORDERED STAT EKG.
--- NOTE | 2018-11-06 02:11 | NUR ---
DR. BRIDGES WAS NOTIFIED OF EKG RESULTS OF SINUS TACHYCARDIA.
--- NOTE | 2018-11-06 04:37 | NUR ---
PATIENT STATES HE IS EXPERIENCING ABDOMINAL PAIN RATE A A 6.5. PT REQUESTED AND RECIEVED PRN DILAUDID. WILL MONITOR FOR EFFECTIVENESS.
[2018-11-06 06:46] LABS: BASO # 0.1 10*3/uL (0.0-0.1); BASO % 0.8 % (0.0-1.0); EOS # 0.2 10*3/uL (0.0-0.4); EOS % 2.5 % (1.0-4.0); HEMATOCRIT 28.5 % (42.0-52.0); HEMOGLOBIN 8.4 g/dl (14.0-18.0); LYMPH # 1.6 10*3/uL (1.3-4.4); LYMPH % 17.7 % (27.0-41.0); MEAN CELL VOLUME 81.2 fl (80.0-94.0); MEAN CORPUSCULAR HGB 23.9 pg (27.0-31.0); MEAN CORPUSCULAR HGB CONC 29.5 g/dl (33.0-37.0); MEAN PLATELET VOLUME 11.5 fl (9.6-12.3); MONO # 0.9 10*3/uL (0.1-1.0); MONO % 9.2 % (3.0-9.0); NEUT # 6.4 10*3/uL (2.3-7.9); NEUT % 69.2 % (47.0-73.0); PLATELET COUNT AUTOMATED 210 10*3/uL (130-400); RED BLOOD COUNT 3.51 10*6/uL (4.50-5.90); RED CELL DISTRI WIDTH 16.4 % (0-14.5); WHITE BLOOD COUNT 9.2 10*3/uL (4.8-10.8)
[2018-11-06 07:15] LABS: ALBUMIN 2.7 gm/dl (3.1-4.5); ALKALINE PHOSPHATASE 126 U/L (45-117); BUN 9 mg/dl (7-24); CHLORIDE 109 mmol/L (98-107); CREATININE 1.17 mg/dL (0.70-1.30); LIPASE 68 U/L (73-393); PHOSPHOROUS 2.9 mg/dL (2.5-4.9); SGOT/AST 20 IU/L (3-35); SGPT/ALT 15 U/L (12-78); SODIUM 142 mmol/L (136-145); TOTAL PROTEIN 6.1 gm/dL (6.4-8.2)
[2018-11-06 07:30] LABS: POTASSIUM 4.9 mmol/L (3.5-5.1)
[2018-11-06 08:00] VITALS: BP 128/60
--- NOTE | 2018-11-06 09:05 | NUR ---
PATIENT MEDICATED WITH DILAUDID AT THIS TIME FOR COMPLAINTS OF PAIN IN HIS ABDOMEN. PATIENT STATED IT HURTS ALL OVER HIS STOMACH AND IT IS A CRAMPING FEELING. WILL MONITOR FOR EFFECTIVENESS.
[2018-11-06 12:00] VITALS: BP 127/84
--- NOTE | 2018-11-06 12:15 | NUR ---
Home Demonstration Agent in to talk to patient. Patient states lives at HOME with . There are 20 steps in the home. Physician: HAILEY [facility]: [facility] Home health services: NONE Patient's level of ADLs: INDEPENDENT Patient has working utilities: YES DME: NONE Follow-up physician's appointment after d/c: WILL BE MADE BY HOSPITLIST NURSE DIRECTOR ON DISCHARGE Does patient want to access PORTAL?: NO Discharge plan PT LIVES AT HOME WITH AND IS INDEPENDENT IN CARE. PT ASK FOR HOME HEALTH THEN STATES I JUST NEED THEM TO CLEAN MY HOUSE. EXPLAINED THAT HOME HEALTH DOES NOT CLEAN HOUSE THEY WOULD BE THERE TO SEE HIM, STATES NEVER MIND THEN. STATES NO OTHER NEEDS. WILL CONTINUE TO FOLLOW. . ELISEO ZARAGOZA
[2018-11-06] MEDS ORDERED: VITAMIN D32000 UNI1 PO (15:54)
[2018-11-06] MEDS ORDERED: LANTUS SOL100 UNIT/1 SQ (15:54)
[2018-11-06 16:00] VITALS: BP 138/86
--- NOTE | 2018-11-06 16:35 | NUR ---
Discharge instructions reviewed with patient/family. Patient receptive and verbalizes understanding. Follow-up care arranged. Written instructions given to patient/family. WENT OVER DISCHARGE PACKET WITH PATIENT. PATIENT AWARE OF NEW PRESCRIPTION AT HIS PHARMACY. PATIENT ALSO AWARE OF THE NEED TO FOLLOW UP WITH PRIMARY CARE PROVIDER IN ONE WEEK. AND ALSO THAT THE HOSPITAL WILL BE IN CONTACT WITH HIM FOR A NEW DIABETIC DOCTOR. IV REMOVED, PATIENT TOLERATED WELLL. HEART MONITOR REMOVED AND PLEACED IN NURSES STATION. PATIENT DENIES THE NEED FOR A WHEELCHAIR. ALL BELONGINGS WITH PATIENT AT THIS TIME. PAIENT AMBULATED OFF FLOOR WITH FAMILY AT THIS TIME. LINDSAY MORALES
[2018-12-07] MEDS ORDERED: HUMALOG KW200 UNIT/1 SQ (11:39)
[2018-12-07] MEDS ORDERED: Humalog SQ (11:39)
[2018-12-07] MEDS ORDERED: HUMULIN 70/30 703 M1 SC (11:39)
== END 2018-11-06 16:35 | disposition home or self-care (01) | DRG 438 ==
LOC: ED 17:48 → EDHOLD 18:45 → 5E 18:45
PROVIDERS: Internal Medicine; Nurse Practitioner Family; Student in an Organized Health Care Education/Training Program; ADMIT Internal Medicine
DX: K85.00 Idiopathic acute pancreatitis without necrosis or infection (principal); N17.0 Acute kidney failure with tubular necrosis; E43 Unspecified severe protein-calorie malnutrition; E87.1 Hypo-osmolality and hyponatremia; E87.2 Acidosis; F41.9 Anxiety disorder, unspecified; I25.10 Atherosclerotic heart disease of native coronary artery without angina pectoris; N18.3 Chronic kidney disease, stage 3 (moderate); J44.9 Chronic obstructive pulmonary disease, unspecified; F32.9 Major depressive disorder, single episode, unspecified; I12.9 Hypertensive chronic kidney disease with stage 1 through stage 4 chronic kidney disease, or unspecified chronic kidney disease; K21.9 Gastro-esophageal reflux disease without esophagitis; G25.81 Restless legs syndrome; F17.210 Nicotine dependence, cigarettes, uncomplicated; D50.9 Iron deficiency anemia, unspecified; E11.22 Type 2 diabetes mellitus with diabetic chronic kidney disease; E86.0 Dehydration; Z88.9 Allergy status to unspecified drugs, medicaments and biological substances; Z88.0 Allergy status to penicillin; Z90.49 Acquired absence of other specified parts of digestive tract; Z95.1 Presence of aortocoronary bypass graft; Z95.5 Presence of coronary angioplasty implant and graft; Z86.73 Personal history of transient ischemic attack (TIA), and cerebral infarction without residual deficits; Z80.8 Family history of malignant neoplasm of other organs or systems; Z83.3 Family history of diabetes mellitus; E55.9 Vitamin D deficiency, unspecified; Z68.27 Body mass index [BMI] 27.0-27.9, adult; Z79.84 Long term (current) use of oral hypoglycemic drugs

== ENCOUNTER 2018-11-16 20:21 | Emergency (ER) | payer OTHER ==
[~2018-11-16] VITALS: Ht 167.6 cm; Wt 78.9 kg
[~2018-11-16 20:21] MED LIST changes: +VITAMIN D32000 UNI1 PO
[2018-11-16 21:08] LABS: BASO # 0.1 10*3/uL (0.0-0.1); BASO % 0.8 % (0.0-1.0); EOS # 0.4 10*3/uL (0.0-0.4); EOS % 3.4 % (1.0-4.0); HEMATOCRIT 34.9 % (42.0-52.0); HEMOGLOBIN 10.5 g/dl (14.0-18.0); LYMPH # 2.3 10*3/uL (1.3-4.4); LYMPH % 18.3 % (27.0-41.0); MEAN CELL VOLUME 78.8 fl (80.0-94.0); MEAN CORPUSCULAR HGB 23.7 pg (27.0-31.0); MEAN CORPUSCULAR HGB CONC 30.1 g/dl (33.0-37.0); MEAN PLATELET VOLUME 11.2 fl (9.6-12.3); MONO # 0.9 10*3/uL (0.1-1.0); NEUT # 8.9 10*3/uL (2.3-7.9); PLATELET COUNT AUTOMATED 261 10*3/uL (130-400); RED BLOOD COUNT 4.43 10*6/uL (4.50-5.90); RED CELL DISTRI WIDTH 15.9 % (0-14.5); WHITE BLOOD COUNT 12.7 10*3/uL (4.8-10.8)
[2018-11-16 21:23] LABS: ALBUMIN 2.7 gm/dl (3.1-4.5); ALKALINE PHOSPHATASE 136 U/L (45-117); BUN 21 mg/dl (7-24); CHLORIDE 103 mmol/L (98-107); CREATININE 1.72 mg/dL (0.70-1.30); POTASSIUM 4.3 mmol/L (3.5-5.1); SGOT/AST 16 IU/L (3-35); SGPT/ALT 13 U/L (12-78); SODIUM 136 mmol/L (136-145); TOTAL PROTEIN 7.4 gm/dL (6.4-8.2)
[2018-11-16] MEDS ORDERED: VIBRAMYCIN100 MG PO (22:12)
[2018-12-07] MEDS ORDERED: Humalog SQ (11:39)
[2018-12-07] MEDS ORDERED: HUMULIN 70/30 703 M1 SC (11:39)
[2018-12-07] MEDS ORDERED: HUMALOG KW200 UNIT/1 SQ (11:39)
== END 2018-11-16 23:31 | disposition home or self-care (01) ==
LOC: ED 20:21
PROVIDERS: Nurse Practitioner Family
DX: L03.116 Cellulitis of left lower limb (principal); E78.2 Mixed hyperlipidemia; J44.9 Chronic obstructive pulmonary disease, unspecified; I12.9 Hypertensive chronic kidney disease with stage 1 through stage 4 chronic kidney disease, or unspecified chronic kidney disease; E11.22 Type 2 diabetes mellitus with diabetic chronic kidney disease; N18.3 Chronic kidney disease, stage 3 (moderate); I25.2 Old myocardial infarction; F17.200 Nicotine dependence, unspecified, uncomplicated; Z88.1 Allergy status to other antibiotic agents; Z88.6 Allergy status to analgesic agent; Z88.8 Allergy status to other drugs, medicaments and biological substances; Z79.899 Other long term (current) drug therapy; Z79.4 Long term (current) use of insulin; Z86.73 Personal history of transient ischemic attack (TIA), and cerebral infarction without residual deficits; Z95.1 Presence of aortocoronary bypass graft

== ENCOUNTER 2018-11-21 20:47 | Inpatient (IN) | payer OTHER ==
--- NOTE | ~2018-11-21 | PR ---
[place], [place] PROGRESS NOTE NAME: ADAM NICHOLAS [facility] #: [id number] UNIT #: [id number] ROOM: 515 DOCTOR: OMAR GLOVER DPM BIRTHDATE: [birth year] DOS: 11/25/2018 SUBJECTIVE: The patient was seen for followup of ulcerations and PVD of the left foot. OBJECTIVE FINDINGS: Arterial insufficiency noted. The fissures/ulcerations of left foot are improving. There is decreased erythema noted to the dorsal left foot compared to my previous exam with the patient. ASSESSMENT: Cellulitis, improving; ulcerations, peripheral vascular disease. PLAN: Evaluation and management. Continue antibiotics and local wound care and the patient will see his vascular surgeon on Tuesday. OMAR GLOVER DPM CM:TANMAY [id number] OMAR GLOVER DPM 11/25/18 1119 interface
[2018-11-21 20:48] VITALS: BP 103/74
[2018-11-21 21:30] LABS: BASO # 0.1 10*3/uL (0.0-0.1); BASO % 0.6 % (0.0-1.0); EOS # 0.3 10*3/uL (0.0-0.4); EOS % 1.9 % (1.0-4.0); HEMATOCRIT 35.9 % (42.0-52.0); HEMOGLOBIN 11.1 g/dl (14.0-18.0); LYMPH % 14.3 % (27.0-41.0); MEAN CELL VOLUME 78.2 fl (80.0-94.0); MEAN CORPUSCULAR HGB 24.2 pg (27.0-31.0); MEAN CORPUSCULAR HGB CONC 30.9 g/dl (33.0-37.0); MEAN PLATELET VOLUME 11.1 fl (9.6-12.3); MONO % 7.3 % (3.0-9.0); NEUT # 10.5 10*3/uL (2.3-7.9); NEUT % 75.6 % (47.0-73.0); PLATELET COUNT AUTOMATED 327 10*3/uL (130-400); RED BLOOD COUNT 4.59 10*6/uL (4.50-5.90); RED CELL DISTRI WIDTH 16.4 % (0-14.5); WHITE BLOOD COUNT 13.8 10*3/uL (4.8-10.8)
[2018-11-21 21:46] LABS: CREATININE 2.06 mg/dL (0.70-1.30); POTASSIUM 5.2 mmol/L (3.5-5.1); TOTAL PROTEIN 8.4 gm/dL (6.4-8.2)
--- NOTE | 2018-11-21 21:48 | NUR ---
BLOOD GLUCOSE 573.
[2018-11-21 21:56] LABS: ACT PARTIAL THROMBO TIME 25.1 SECONDS (20.8-31.5); INTERNATIONAL NORM RATIO 0.9 (2.0-3.5)
--- NOTE | 2018-11-21 22:05 | NUR ---
NURSE TO NURSE REPORT GIVEN TO THIS NURSE
[2018-11-21 23:53] VITALS: BP 108/70
[2018-11-22 01:01] VITALS: BP 93/56
--- NOTE | 2018-11-22 01:04 | NUR ---
SCABS NOTED TO BILATERAL FEET.. NO OPEN WOUNDS NOTED.. NO PHOTOS TAKEN..
[2018-11-22 01:35] VITALS: BP 94/59
--- NOTE | 2018-11-22 01:35 | NUR ---
A 58, admitted to , under the services of EFRAIN Carrero DO with a diagnosis of HYPERGLYCEMIA; CELLULITIS. Chief complaint is HYPERGLYCEMIA; CELLULITIS. Patient arrived via stretcher from ER. Monitor applied. Initial assessment completed. Vital signs taken and recorded. EFRAIN CARRERO DO notified of admission to the unit. Orders received. See assessment for past medical history, medications and allergies. Patient and/or family oriented to unit. [facility] visitation policy reviewed. Clothing/patient valuable form completed. KAYKAY COLEMAN
[2018-11-22] MEDS ORDERED: HUMULIN 70/30 703 M1 SC (03:52)
--- NOTE | 2018-11-22 04:06 | NUR ---
CALLED DR. MANUEL TO INFORM HIM THAT PATIENT'S MED REC WAS UP TO DATE & THAT PATIENT HAS NUMEROUS DIABETIC WOUNDS. PICTURES TAKEN PER POLICY. CALL LIGHT WITHIN REACH.
--- NOTE | 2018-11-22 04:10 | NUR ---
RESTING IN BED WITH EYES CLOSED; IV FLUIDS CONTINUE TO INFUSE ORDERED. CALL LIGHT WITHIN REACH.
--- NOTE | 2018-11-22 05:45 | NUR ---
MEDICATED WITH NORCO FOR C/O LEFT FOOT PAIN RATED A 7/10.
[2018-11-22 06:43] LABS: BASO # 0.1 10*3/uL (0.0-0.1); EOS # 0.3 10*3/uL (0.0-0.4); EOS % 2.7 % (1.0-4.0); HEMATOCRIT 32.5 % (42.0-52.0); HEMOGLOBIN 9.8 g/dl (14.0-18.0); LYMPH # 2.5 10*3/uL (1.3-4.4); LYMPH % 24.7 % (27.0-41.0); MEAN CELL VOLUME 79.5 fl (80.0-94.0); MEAN CORPUSCULAR HGB CONC 30.2 g/dl (33.0-37.0); MEAN PLATELET VOLUME 10.9 fl (9.6-12.3); MONO # 0.8 10*3/uL (0.1-1.0); MONO % 7.6 % (3.0-9.0); NEUT # 6.4 10*3/uL (2.3-7.9); NEUT % 63.7 % (47.0-73.0); PLATELET COUNT AUTOMATED 265 10*3/uL (130-400); RED BLOOD COUNT 4.09 10*6/uL (4.50-5.90); RED CELL DISTRI WIDTH 16.5 % (0-14.5)
[2018-11-22 06:56] LABS: ALBUMIN 2.4 gm/dl (3.1-4.5); CREATININE 1.71 mg/dL (0.70-1.30); PHOSPHOROUS 3.8 mg/dL (2.5-4.9); TOTAL PROTEIN 7.1 gm/dL (6.4-8.2)
[2018-11-22 07:13] LABS: ACT PARTIAL THROMBO TIME 25.9 SECONDS (20.8-31.5)
[2018-11-22 08:07] VITALS: BP 96/66
--- NOTE | 2018-11-22 10:32 | NUR ---
MEDICATED WITH PRN PO NORCO FOR LEFT FOOT PAIN.
--- NOTE | 2018-11-22 11:18 | NUR ---
PRN PO NORCO SOMEWHAT EFFECTIVE FOR LEFT FOOT PAIN, PER PATIENT.
--- NOTE | 2018-11-22 11:36 | NUR ---
ADAM NICHOLAS [id number] Please refer to the physician's history and physical for past medical history, comorbid conditions, and allergies. Diagnosis: HYPERGLYCEMIA,FAILURE OF OP TREATMENT,CELLULITIS Dion Score: 17,AT RISK WOUND DESCRIPTIONS: Location of the wound: LEFT LATERAL GREAT TOE Type of wound: UNSTAGEABLE Size: 0.5cm X 1.2cm X <0.1cm Tunneling: NONE Undermining: NONE Sinus Tract: NONE Presence of Exudate:NONE Amount: None Color: Black Odor: None Periwound Skin Appearance: Erythema Wound edges: CLOSED Pain (associated with wound): TENDER TO TOUCH. How does patient state this happened? PATIENT UNSURE HOW THIS HAPPENED. If wound is on legs/feet or hands, capillary refill time, pulses, color temp, sensation: CAP REFILL < 3 SECONDS. Location of the wound: LEFT DISTAL GREAT TOE Type of wound: UNSTAGEABLE Size: 1.0cm X 0.1cm X <0.1cm Tunneling: NONE Undermining: NONE Sinus Tract: NONE Presence of Exudate:NONE Amount: None Color: Black Odor: None Periwound Skin Appearance: Erythema Wound edges: CLOSED Pain (associated with wound): TENDER TO TOUCH. How does patient state this happened? PATIENT UNSURE HOW THIS HAPPENED. If wound is on legs/feet or hands, capillary refill time, pulses, color temp, sensation: CAP REFILL < 3 SECONDS. Location of the wound: LEFT MEDIAL FOOT Type of wound: UNSTAGEABLE Size: 3.0cm X 2.2cm X <0.1cm Tunneling: NONE Undermining: NONE Sinus Tract: NONE Presence of Exudate:NONE Amount: None Color: Black Odor: None Periwound Skin Appearance: Erythema Wound edges: CLOSED Pain (associated with wound): TENDER TO TOUCH. How does patient state this happened? PATIENT UNSURE HOW THIS HAPPENED. If wound is on legs/feet or hands, capillary refill time, pulses, color temp, sensation: CAP REFILL < 3 SECONDS. Location of the wound: LEFT LATERAL FOOT Type of wound: UNSTAGEABLE Size: 0.5cm X 3.5cm X <0.1cm Tunneling: NONE Undermining: NONE Sinus Tract: NONE Presence of Exudate:NONE Amount: None Color: Black Odor: None Periwound Skin Appearance: Erythema Wound edges: CLOSED Pain (associated with wound): TENDER TO TOUCH. How does patient state this happened? PATIENT UNSURE HOW THIS HAPPENED. If wound is on legs/feet or hands, capillary refill time, pulses, color temp, sensation: CAP REFILL < 3 SECONDS. Location of the wound: LEFT FOOT DORSAL Type of wound: UNSTAGEABLE Size: 0.6cm X 0.6cm X <0.1cm Tunneling: NONE Undermining: NONE Sinus Tract: NONE Presence of Exudate:NONE Amount: None Color: Black Odor: None Periwound Skin Appearance: Erythema Wound edges: CLOSED Pain (associated with wound): TENDER TO TOUCH. How does patient state this happened? PATIENT UNSURE HOW THIS HAPPENED. If wound is on legs/feet or hands, capillary refill time, pulses, color temp, sensation: CAP REFILL < 3 SECONDS. Location of the wound: LEFT MEDIAL PLANTAR FOOT Type of wound: UNSTAGEABLE Size: 0.6cm X 0.1cm X <0.1cm Tunneling: NONE Undermining: NONE Sinus Tract: NONE Presence of Exudate:NONE Amount: None Color: Black Odor: None Periwound Skin Appearance: Erythema Wound edges: CLOSED Pain (associated with wound): TENDER TO TOUCH. How does patient state this happened? PATIENT UNSURE HOW THIS HAPPENED. If wound is on legs/feet or hands, capillary refill time, pulses, color temp, sensation: CAP REFILL < 3 SECONDS. Location of the wound: LEFT PLANTAR FOOT Type of wound: UNSTAGEABLE Size: 1.5cm X 0.1cm X <0.1cm Tunneling: NONE Undermining: NONE Sinus Tract: NONE Presence of Exudate:NONE Amount: None Color: Black Odor: None Periwound Skin Appearance: Erythema Wound edges: CLOSED Pain (associated with wound): TENDER TO TOUCH. How does patient state this happened? PATIENT UNSURE HOW THIS HAPPENED. If wound is on legs/feet or hands, capillary refill time, pulses, color temp, sensation: CAP REFILL < 3 SECONDS. Surface the patient is resting on: Isoflex SKIN PREVENTION RECOMMENDATION: 1. Pressure redistribution support surface as appropriate 2. Elevate heels 3. Remove boots/TEDS every shift and reapply 4. Head of bed 30 degrees as tolerated 5. Assess nutrition and hydration 6. Manage moisture 7. Avoid the use of containment devices while in bed 8. Use absorptive products on surfaces limit layers of linens on bed 9. Turn and reposition every 1-2 hours in bed and every 1 hour in chair as tolerated 10. Weight shifts every 15 minutes while up in chair 11. Offloading with pillows or device to keep heels elevated off bed 12. Monitor skin at least every shift 13. Inspect under medical devices twice a day WOUND TREATMENT RECOMMENDATIONS: CONSULT PODIATRY. ARTERIAL STUDIES OF BLE. MRI OF LEFT FOOT. CLEANSE LEFT FOOT WOUNDS WITH NSS PAINT WITH BETADINE ALLOW TO DRY AND LEAVE OPEN TO AIR.
--- NOTE | 2018-11-22 14:45 | NUR ---
MEDICATED WITH PRN NORCO FOR LEFT FOOT PAIN.
--- NOTE | 2018-11-22 15:39 | NUR ---
MEDICATED WITH PRN IV MORPHINE FOR LEFT FOOT PAIN D/T NORCO NOT ADEQUATELY EFFECTIVE.
[2018-11-22 16:00] VITALS: BP 98/73
--- NOTE | 2018-11-22 16:16 | NUR ---
PRN IV MORPHINE EFFECTIVE, PER PATIENT.
[2018-11-22 20:00] VITALS: BP 96/74
--- NOTE | 2018-11-22 21:13 | NUR ---
Medicated with [place] po prn for lt foot pain. Will monitor effectiveness. Call light within reach.
--- NOTE | 2018-11-22 22:20 | NUR ---
Patient resting quietly in bed with eyes closed. [place] effective. Will continue to monitor. Call light within reach.
[2018-11-23] VITALS: BP 104/69
--- NOTE | 2018-11-23 00:11 | NUR ---
Medicated with Morphine IV prn for lt foot pain. Will monitor effectiveness. Call light within reach.
--- NOTE | 2018-11-23 01:05 | NUR ---
24 HR chart check completed.
--- NOTE | 2018-11-23 01:23 | NUR ---
Medicated with [place] po prn for lt foot pain. Will monitor effectiveness. Call light within reach.
[2018-11-23 07:33] LABS: BASO # 0.1 10*3/uL (0.0-0.1); BASO % 0.7 % (0.0-1.0); EOS # 0.3 10*3/uL (0.0-0.4); EOS % 2.7 % (1.0-4.0); HEMATOCRIT 32.3 % (42.0-52.0); HEMOGLOBIN 9.5 g/dl (14.0-18.0); LYMPH # 1.9 10*3/uL (1.3-4.4); LYMPH % 15.6 % (27.0-41.0); MEAN CELL VOLUME 80.1 fl (80.0-94.0); MEAN CORPUSCULAR HGB 23.6 pg (27.0-31.0); MEAN CORPUSCULAR HGB CONC 29.4 g/dl (33.0-37.0); MEAN PLATELET VOLUME 11.2 fl (9.6-12.3); MONO # 0.9 10*3/uL (0.1-1.0); MONO % 7.3 % (3.0-9.0); NEUT # 8.7 10*3/uL (2.3-7.9); NEUT % 73.1 % (47.0-73.0); PLATELET COUNT AUTOMATED 276 10*3/uL (130-400); RED BLOOD COUNT 4.03 10*6/uL (4.50-5.90); RED CELL DISTRI WIDTH 16.7 % (0-14.5); WHITE BLOOD COUNT 11.9 10*3/uL (4.8-10.8)
[2018-11-23 07:39] LABS: ALBUMIN 2.5 gm/dl (3.1-4.5); BUN 21 mg/dl (7-24); CHLORIDE 107 mmol/L (98-107); CREATININE 1.35 mg/dL (0.70-1.30); PHOSPHOROUS 3.8 mg/dL (2.5-4.9); SODIUM 140 mmol/L (136-145)
[2018-11-23 09:44] VITALS: BP 100/60
--- NOTE | 2018-11-23 10:46 | NUR ---
[place] given per patient request for pain in left foot rated 9/10. Patient states "it's really throbbing." Will monitor.
--- NOTE | 2018-11-23 10:47 | NUR ---
Staff Physician in to talk to patient. Patient states lives at HOME with . There are FEW steps in the home. Physician: HAILEY [facility]: [facility] Home health services: NONE Patient's level of ADLs: INDEPENDENT Patient has working utilities: YES DME: NONE Follow-up physician's appointment after d/c: WILL BE MADE BY HOSPITALIST NURSE DIRECTOR ON DISCHARG Does patient want to access PORTAL?: NO Discharge plan PT LIVES WITH AT HOME. STATES HE IS INDEPENDENT IN HIS HOME CARE AND HAS NO NEEDS AT THIS TIME. WILL CONTINUE TO FOLLOW. STATES HIS BROTHER IN LAW WILL TAKE HIM HOME. WILL CONTINUE TO FOLLOW.. ELISEO ZARAGOZA
--- NOTE | 2018-11-23 11:30 | NUR ---
[place] not effective.
--- NOTE | 2018-11-23 11:47 | NUR ---
Morphine given per patient request for pain in left foot. Will monitor.
[2018-11-23 12:00] VITALS: BP 113/57
--- NOTE | 2018-11-23 12:15 | NUR ---
Patient states Mophine helps for a short while.
--- NOTE | 2018-11-23 15:30 | NUR ---
[place] given for c/o pain in left foot. Will monitor.
[2018-11-23 16:00] VITALS: BP 102/69
--- NOTE | 2018-11-23 16:00 | NUR ---
Patient states Liz takes the edge off but nothing will take this pain away.
--- NOTE | 2018-11-23 18:23 | NUR ---
[place] given per patient request for constant throbbing in left foot. Will monitor.
--- NOTE | 2018-11-23 19:00 | NUR ---
Patient states morphine helps for a little while.
[2018-11-23 20:00] VITALS: BP 115/73
--- NOTE | 2018-11-23 20:13 | NUR ---
1944 SITTING UP ON THE SIDE OF THE BED. ALERT AND PLEASANT. IV FLUIDS CONT. DRSG D/I TO LEFT FOOT. BOOT INTACT. NO DISTRESS NOTED. NO C/O'S AT PRESENT.
--- NOTE | 2018-11-23 21:22 | NUR ---
2109 MEDICATED WITH NORCO 1 PO FOR C/O'S LEFT FOOT PAIN. RATES PAIN A "9". REQUESTING MORPHINE. TOO EARLY. WILL MONITOR.
--- NOTE | 2018-11-23 22:18 | NUR ---
EARLIER PAIN PILL SL EFFECTIVE.
[2018-11-24] VITALS: BP 110/82; BP 157/107
--- NOTE | 2018-11-24 00:41 | NUR ---
0000 INCONTINENT OF LIQUID BM. UP TO BR. BATHED AT SINK. LINENS CHANGED. 0030 MORPHINE 1MG IV GIVEN FOR C/O'S LEFT FOOT PAIN. WILL CONT TO MONITOR.
[2018-11-24 01:20] VITALS: BP 110/70
--- NOTE | 2018-11-24 01:44 | NUR ---
EARLIER PAIN MED EFFECTIVE.
--- NOTE | 2018-11-24 02:58 | NUR ---
MEDICATED WITH NORCO 1 PO FOR CONT C/O'S PAIN LEFT FOOT. RATES AN "8". WILL MONITOR.
--- NOTE | 2018-11-24 04:13 | NUR ---
EARLIER PAINMED EFFECTIVE . RESTING IN BED WITH EYES CLOSED.
--- NOTE | 2018-11-24 06:12 | NUR ---
UP TO BR. HR ELEVATED WITH ACTIVITY. DENIES SOB. IV FLUIDS CONT. DRSG D/I LEFT FOOT. CONDITION GUARDED,
[2018-11-24 06:35] LABS: BUN 17 mg/dl (7-24); CHLORIDE 107 mmol/L (98-107); CREATININE 1.27 mg/dL (0.70-1.30); POTASSIUM 4.7 mmol/L (3.5-5.1); SODIUM 139 mmol/L (136-145)
[2018-11-24 06:45] LABS: BASO # 0.1 10*3/uL (0.0-0.1); BASO % 0.8 % (0.0-1.0); EOS # 0.3 10*3/uL (0.0-0.4); EOS % 2.5 % (1.0-4.0); HEMATOCRIT 30.4 % (42.0-52.0); HEMOGLOBIN 9.1 g/dl (14.0-18.0); LYMPH # 2.2 10*3/uL (1.3-4.4); LYMPH % 18.8 % (27.0-41.0); MEAN CELL VOLUME 80.2 fl (80.0-94.0); MEAN CORPUSCULAR HGB CONC 29.9 g/dl (33.0-37.0); MONO # 1.1 10*3/uL (0.1-1.0); MONO % 9.4 % (3.0-9.0); NEUT % 67.8 % (47.0-73.0); PLATELET COUNT AUTOMATED 257 10*3/uL (130-400); RED BLOOD COUNT 3.79 10*6/uL (4.50-5.90); WHITE BLOOD COUNT 11.8 10*3/uL (4.8-10.8)
[2018-11-24 08:01] VITALS: BP 112/68
--- NOTE | 2018-11-24 08:49 | NUR ---
[place] given per patient request for pain in left foot. Patient states he is feeling better, but he's still in alot of pain. Will monitor.
[2018-11-24 12:00] VITALS: BP 110/70
--- NOTE | 2018-11-24 14:28 | NUR ---
Nutritional Support Services Note: Discussing with pt 1800cal diabetic diet, diet copy given to pt. Pt has been a diabetic for two years, has never followed a diet. Uses regular sugar at home and drinks regular pop. Normally only eats one meal a day. Encouraged three meals daily and a night snack.Encouraged healthy eating and proper portion sizes. Encouraged adequate protein intake to help promote healing. Will follow as needed. Kristi Estes Rdn Ld
[2018-11-24 16:00] VITALS: BP 123/75
--- NOTE | 2018-11-24 16:40 | NUR ---
Recommend follow up for wound care in outpatient setting patient refused at this time.
--- NOTE | 2018-11-24 16:41 | NUR ---
Recommend follow up for wound care in outpatient setting patient being discharge to another facility at this time.
[2018-11-24 20:00] VITALS: BP 113/39
--- NOTE | 2018-11-24 20:00 | NUR ---
RESTING IN BED WITH HOB SLIGHTLY ELEVATED. IV FLUIDS INFUSING INTO RIGHT ANTECUBITAL; SITE ASYMPTOMATIC. PT. VOICES NO C/O AT THIS TIME. NO DISTRESS NOTED. CALL LIGHT WITHIN REACH.
--- NOTE | 2018-11-24 21:53 | NUR ---
PT C/O LEFT FOOT PAIN, RATES PAIN 7 OR 8 ON PAIN SCALE 0-10. MEDICATED WITH MORPHINE IV PER PRN ORDER, SEE EMAR. CALL LIGHT IN REACH.
[2018-11-25] VITALS: BP 123/79
--- NOTE | 2018-11-25 00:32 | NUR ---
MEDICATED WITH NOROC FOR C/O LEFT FOOT PAIN.
--- NOTE | 2018-11-25 04:03 | NUR ---
MEDICATED WITH MS FOR C/O LEFT FOOT PAIN RATED A "7". PT. RESTING COMFORTABLY IN BED; NO DISTRESS NOTED AT THIS TIME. WILL CONTINUE TO MONITOR. [facility].
--- NOTE | 2018-11-25 05:14 | NUR ---
PT. C/O LEFT FOOT PAIN & RATES IT A "7" ON 1/10 PAIN SCALE. RESTING COMFORTABLY IN BED; NO DISTRESS NOTED. MEDICATED WITH NORCO PER PT'S REQUEST. CALL LIGHT REMAINS WITHIN REACH.
--- NOTE | 2018-11-25 06:11 | NUR ---
PT. STATES THAT HE HAS HAD DIARRHEA SEVERAL TIMES. DR. MANUEL TO PUT ORDER IN FOR CDIFF/STOOL CULTURE.
--- NOTE | 2018-11-25 06:46 | NUR ---
STOOL SPECIMENS SENT PER M.D. ORDERS FOR CDIFF & STOOL CULTURE.
[2018-11-25 07:39] LABS: BASO # 0.1 10*3/uL (0.0-0.1); EOS # 0.3 10*3/uL (0.0-0.4); EOS % 2.8 % (1.0-4.0); HEMATOCRIT 28.3 % (42.0-52.0); HEMOGLOBIN 8.5 g/dl (14.0-18.0); LYMPH % 19.8 % (27.0-41.0); MEAN CELL VOLUME 80.4 fl (80.0-94.0); MEAN CORPUSCULAR HGB 24.1 pg (27.0-31.0); MONO # 1.1 10*3/uL (0.1-1.0); NEUT # 6.4 10*3/uL (2.3-7.9); NEUT % 64.9 % (47.0-73.0); PLATELET COUNT AUTOMATED 247 10*3/uL (130-400); RED BLOOD COUNT 3.52 10*6/uL (4.50-5.90); RED CELL DISTRI WIDTH 17.4 % (0-14.5); WHITE BLOOD COUNT 9.9 10*3/uL (4.8-10.8)
[2018-11-25 07:52] LABS: BUN 14 mg/dl (7-24); CHLORIDE 108 mmol/L (98-107); CREATININE 1.23 mg/dL (0.70-1.30); POTASSIUM 4.4 mmol/L (3.5-5.1); SODIUM 140 mmol/L (136-145)
[2018-11-25 08:00] VITALS: BP 113/65
[2018-11-25] MEDS ORDERED: CEPHALEXIN500 M1 PO (13:27)
--- NOTE | 2018-11-25 14:30 | NUR ---
Discharge instructions reviewed with patient/family. Patient receptive and verbalizes understanding. Follow-up care arranged. Written instructions given to patient/family. NEGRITO WERNER
[2018-12-07] MEDS ORDERED: Humalog SQ (11:39)
[2018-12-07] MEDS ORDERED: HUMULIN 70/30 703 M1 SC (11:39)
[2018-12-07] MEDS ORDERED: HUMALOG KW200 UNIT/1 SQ (11:39)
[2019-05-16] MEDS ORDERED: FUROSEMIDE20 M1 PO (23:35)
[2019-05-16] MEDS ORDERED: VITAMIN D50000 UNIT PO (23:36)
[2019-05-16] MEDS ORDERED: TYLENOL WITH C1 EACH PO (23:37)
== END 2018-11-25 14:30 | disposition home or self-care (01) | DRG 871 ==
LOC: ED 20:47 → EDHOLD 11-22 00:30 → 5E 11-22 00:30
PROVIDERS: Family Medicine; Internal Medicine; Nurse Practitioner Family; ADMIT Internal Medicine
DX: A41.9 Sepsis, unspecified organism (principal); N17.0 Acute kidney failure with tubular necrosis; L03.116 Cellulitis of left lower limb; E87.1 Hypo-osmolality and hyponatremia; E44.0 Moderate protein-calorie malnutrition; I25.810 Atherosclerosis of coronary artery bypass graft(s) without angina pectoris; N18.3 Chronic kidney disease, stage 3 (moderate); E10.65 Type 1 diabetes mellitus with hyperglycemia; F41.9 Anxiety disorder, unspecified; Z86.73 Personal history of transient ischemic attack (TIA), and cerebral infarction without residual deficits; J44.9 Chronic obstructive pulmonary disease, unspecified; Z79.4 Long term (current) use of insulin; I12.9 Hypertensive chronic kidney disease with stage 1 through stage 4 chronic kidney disease, or unspecified chronic kidney disease; K21.9 Gastro-esophageal reflux disease without esophagitis; E78.2 Mixed hyperlipidemia; Z90.49 Acquired absence of other specified parts of digestive tract; Z95.1 Presence of aortocoronary bypass graft; R65.20 Severe sepsis without septic shock; D50.9 Iron deficiency anemia, unspecified; E87.5 Hyperkalemia; E87.8 Other disorders of electrolyte and fluid balance, not elsewhere classified; G25.81 Restless legs syndrome; I67.9 Cerebrovascular disease, unspecified; E55.9 Vitamin D deficiency, unspecified; E10.22 Type 1 diabetes mellitus with diabetic chronic kidney disease; E10.51 Type 1 diabetes mellitus with diabetic peripheral angiopathy without gangrene; E66.3 Overweight; F17.210 Nicotine dependence, cigarettes, uncomplicated; Z68.26 Body mass index [BMI] 26.0-26.9, adult; Z78.9 Other specified health status

== ENCOUNTER → 2018-12-04 | Outpatient (CLI) | payer OTHER ==
[~2018-12-04] MED LIST changes: +BASAG SOL SC; +FUROSEMIDE20 M1 PO; +HUMULIN 70/30 703 M1 SC; +Humalog SQ; +ZITHROMAX500 MG PO
[2018-12-04 11:24] LABS: CREATININE 1.79 mg/dL (0.70-1.30); POTASSIUM 4.8 mmol/L (3.5-5.1)
== END | disposition home or self-care (01) ==
LOC: LAB 09:59
PROVIDERS: Internal Medicine Nephrology
DX: N18.9 Chronic kidney disease, unspecified (principal)

== ENCOUNTER 2018-12-28 23:54 | Emergency (ER) | payer OTHER ==
[~2018-12-28] VITALS: Ht 170.1 cm; Wt 79.4 kg
--- NOTE | ~2018-12-28 | EKG ---
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: : 1960 Requested By: MARVA LAMAS Order Number: [id number] Reading MD: Otis Washington MD Measurements Intervals [place] Rate: 91 P: 69 SD: 179 QRS: -53 QRSD: 149 T: 56 QT: 399 QTc: 492 Interpretive Statements Sinus rhythm Probable left atrial enlargement RBBB and LAFB Left ventricular hypertrophy Compared to ECG 12/06/2018 21:00:10 Left anterior fascicular block now present Sinus tachycardia no longer present Intraventricular conduction delay no longer present Early repolarization no longer present Electronically Signed On 01-01-2019 8:20:58 PDT by Otis Washington MD CM:EKGRPT:ELECTROCARDIOGRAM REPORT [id number] MARVA WASSERMAN DRAFT REPORT MARVA LAMAS DO
[~2018-12-28 23:54] MED LIST changes: -BASAG SOL SC; -FUROSEMIDE20 M1 PO; -ZITHROMAX500 MG PO
[2018-12-29 00:35] LABS: BASO # 0.1 10*3/uL (0.0-0.1); BASO % 0.9 % (0.0-1.0); EOS # 0.5 10*3/uL (0.0-0.4); EOS % 4.5 % (1.0-4.0); HEMATOCRIT 35.7 % (42.0-52.0); LYMPH # 2.2 10*3/uL (1.3-4.4); LYMPH % 19.2 % (27.0-41.0); MEAN CORPUSCULAR HGB 24.3 pg (27.0-31.0); MEAN CORPUSCULAR HGB CONC 30.8 g/dl (33.0-37.0); MEAN PLATELET VOLUME 10.4 fl (9.6-12.3); MONO # 1.2 10*3/uL (0.1-1.0); MONO % 10.2 % (3.0-9.0); NEUT # 7.4 10*3/uL (2.3-7.9); NEUT % 64.8 % (47.0-73.0); PLATELET COUNT AUTOMATED 292 10*3/uL (130-400); RED BLOOD COUNT 4.52 10*6/uL (4.50-5.90); RED CELL DISTRI WIDTH 17.5 % (0-14.5); WHITE BLOOD COUNT 11.4 10*3/uL (4.8-10.8)
[2018-12-29 00:54] LABS: ALKALINE PHOSPHATASE 147 U/L (45-117); BUN 33 mg/dl (7-24); CHLORIDE 97 mmol/L (98-107); CREATININE 1.96 mg/dL (0.70-1.30); POTASSIUM 4.2 mmol/L (3.5-5.1); SGOT/AST 13 IU/L (3-35); SGPT/ALT 15 U/L (12-78); SODIUM 133 mmol/L (136-145)
[2018-12-29 00:56] LABS: TROPONIN I < 0.015 ng/ml (<0.045)
[2018-12-29 02:36] LABS: BILIRUBIN NEGATIVE (NEGATIVE); BLOOD NEGATIVE (NEGATIVE); CLARITY CLEAR (CLEAR); COLOR YELLOW (YELLOW); GLUCOSE 2+ (NEGATIVE); KETONE NEGATIVE (NEGATIVE); LEUKO ESTERASE TRACE (NEGATIVE); NITRITE NEGATIVE (NEGATIVE); SPECIFIC GRAVITY 1.015 (1.005-1.030); UROBILINOGEN 0.2 E.U./dl (0.2-1.0)
[2018-12-29 02:45] LABS: EPITHELIAL CELLS 15-20; URINE AMPHETAMINES < 1000 (1000ng/ml); URINE BARBITURATES < 200 (200ng/ml); URINE BENZODIAZEPINES < 200 (200ng/ml); URINE CANNABINOIDS (THC) < 50 (50ng/ml); URINE COCAINE < 300 (300ng/ml); URINE METHADONE < 300 (300ng/ml); URINE OPIATES > 300 (300ng/ml)
[2018-12-29 02:46] LABS: YEAST 1+
[2018-12-29 02:49] LABS: URINE PHENCYCLIDINE < 25 (25ng/ml)
[2019-05-16] MEDS ORDERED: FUROSEMIDE20 M1 PO (23:35)
[2019-05-16] MEDS ORDERED: VITAMIN D50000 UNIT PO (23:36)
[2019-05-16] MEDS ORDERED: TYLENOL WITH C1 EACH PO (23:37)
== END 2018-12-29 03:08 | disposition left against medical advice (07) ==
LOC: ED 23:54
PROVIDERS: Emergency Medicine
DX: G45.8 Other transient cerebral ischemic attacks and related syndromes (principal); I25.10 Atherosclerotic heart disease of native coronary artery without angina pectoris; E11.22 Type 2 diabetes mellitus with diabetic chronic kidney disease; N18.3 Chronic kidney disease, stage 3 (moderate); J44.9 Chronic obstructive pulmonary disease, unspecified; E11.9 Type 2 diabetes mellitus without complications; K21.9 Gastro-esophageal reflux disease without esophagitis; E78.00 Pure hypercholesterolemia, unspecified; E78.2 Mixed hyperlipidemia; E66.3 Overweight; G25.81 Restless legs syndrome; E11.65 Type 2 diabetes mellitus with hyperglycemia; Z90.49 Acquired absence of other specified parts of digestive tract; Z95.1 Presence of aortocoronary bypass graft; Z98.890 Other specified postprocedural states; Z95.5 Presence of coronary angioplasty implant and graft; Z79.899 Other long term (current) drug therapy; Z87.891 Personal history of nicotine dependence; Z68.29 Body mass index [BMI] 29.0-29.9, adult; Z79.82 Long term (current) use of aspirin; Z79.4 Long term (current) use of insulin; Z88.8 Allergy status to other drugs, medicaments and biological substances; Z88.1 Allergy status to other antibiotic agents; Z88.6 Allergy status to analgesic agent

== ENCOUNTER 2018-12-30 19:20 | Emergency (ER) | payer OTHER ==
[~2018-12-30] VITALS: Ht 170.1 cm; Wt 79.4 kg
--- NOTE | ~2018-12-30 | EKG ---
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
[2018-12-30 20:09] LABS: BASO # 0.1 10*3/uL (0.0-0.1); BASO % 0.8 % (0.0-1.0); EOS # 0.6 10*3/uL (0.0-0.4); EOS % 5.7 % (1.0-4.0); HEMATOCRIT 33.9 % (42.0-52.0); HEMOGLOBIN 10.4 g/dl (14.0-18.0); LYMPH # 2.1 10*3/uL (1.3-4.4); LYMPH % 18.7 % (27.0-41.0); MEAN CELL VOLUME 80.9 fl (80.0-94.0); MEAN CORPUSCULAR HGB 24.8 pg (27.0-31.0); MEAN CORPUSCULAR HGB CONC 30.7 g/dl (33.0-37.0); MEAN PLATELET VOLUME 11.1 fl (9.6-12.3); MONO # 0.9 10*3/uL (0.1-1.0); NEUT # 7.3 10*3/uL (2.3-7.9); NEUT % 66.5 % (47.0-73.0); PLATELET COUNT AUTOMATED 252 10*3/uL (130-400); RED BLOOD COUNT 4.19 10*6/uL (4.50-5.90); RED CELL DISTRI WIDTH 17.7 % (0-14.5)
[2018-12-30 20:33] LABS: ALBUMIN 2.6 gm/dl (3.1-4.5); CREATININE 1.86 mg/dL (0.70-1.30); TOTAL PROTEIN 7.1 gm/dL (6.4-8.2)
[2018-12-30 20:40] LABS: THYROID STIM HORMONE (HS) 1.04 uIU/ml (0.358-4.75)
[2018-12-30 21:13] LABS: BILIRUBIN NEGATIVE (NEGATIVE); BLOOD NEGATIVE (NEGATIVE); CLARITY CLEAR (CLEAR); COLOR YELLOW (YELLOW); GLUCOSE 3+ (NEGATIVE); KETONE NEGATIVE (NEGATIVE); LEUKO ESTERASE NEGATIVE (NEGATIVE); NITRITE NEGATIVE (NEGATIVE); UROBILINOGEN 0.2 E.U./dl (0.2-1.0)
[2018-12-30 21:21] LABS: RBC 0-2 rbc/hpf (0-2); YEAST 1+
[2019-05-16] MEDS ORDERED: FUROSEMIDE20 M1 PO (23:35)
[2019-05-16] MEDS ORDERED: VITAMIN D50000 UNIT PO (23:36)
[2019-05-16] MEDS ORDERED: TYLENOL WITH C1 EACH PO (23:37)
== END 2018-12-31 03:02 | disposition home or self-care (01) ==
LOC: ED 19:20
PROVIDERS: Emergency Medicine
DX: R25.1 Tremor, unspecified (principal); E11.22 Type 2 diabetes mellitus with diabetic chronic kidney disease; N18.3 Chronic kidney disease, stage 3 (moderate); E11.65 Type 2 diabetes mellitus with hyperglycemia; I25.10 Atherosclerotic heart disease of native coronary artery without angina pectoris; J44.9 Chronic obstructive pulmonary disease, unspecified; K21.9 Gastro-esophageal reflux disease without esophagitis; E78.2 Mixed hyperlipidemia; Z88.8 Allergy status to other drugs, medicaments and biological substances; Z88.6 Allergy status to analgesic agent; Z79.2 Long term (current) use of antibiotics; Z79.4 Long term (current) use of insulin; Z79.899 Other long term (current) drug therapy; Z90.49 Acquired absence of other specified parts of digestive tract; Z86.73 Personal history of transient ischemic attack (TIA), and cerebral infarction without residual deficits; Z87.891 Personal history of nicotine dependence

== ENCOUNTER 2019-01-07 19:25 | Inpatient (IN) | payer OTHER ==
[~2019-01-07] VITALS: Ht 167.6 cm; Wt 79.0 kg
--- NOTE | ~2019-01-07 | PR ---
[place], [place] PROGRESS NOTE [id number] UNIT #: [id number] ROOM: 531 DOCTOR: REX DEAN MD BIRTHDATE: [birth year] DOS: 01/10/[address] Washington. SUBJECTIVE: The patient was admitted with shortness of breath and with "heart failure." His breathing is much easier. He has no cough, fever or chills. He has not had any chest pain or palpitations. He has walked in the room with no obvious shortness of breath. PHYSICAL EXAMINATION: GENERAL: This revealed the patient who is alert, oriented, sitting in the bed, somewhat unkempt. VITAL SIGNS: Pulse 88 beats per minute, blood pressure 88/57, previous blood pressure was 90/60. NECK: JVP is normal. AJR is essentially negative. No murmurs are present. EXTREMITIES: There is no edema at all in the lower extremities. LUNGS: He is not tachypneic. Percussion noted as normal. Auscultation reveals modestly reduced breath sounds bilaterally with crackles in both lungs. LABORATORY DATA: Chest x-ray done a couple of days ago did not show any obvious acute changes. IMPRESSION: 1. This patient had shortness of breath, which may have been due to exacerbation of chronic obstructive pulmonary disease. There is no clinical or radiographic evidence of cardiac decompensation. 2. Coronary artery disease. This is asymptomatic. No new recommendations. REX DEAN MD CM:PNTRANS [id number] REX DEAN MD 01/10/19 1621 interface
--- NOTE | ~2019-01-07 | EKG ---
[place], [place] ELECTROCARDIOGRAM REPORT NAME: ADAM NICHOLAS UNIT #: [id number] ROOM: 531 DOCTOR: BILLY DRAFT REPORT BIRTHDATE: [birth year] [facility] Test Date: 2019-01-07 Test Time: 19:53:21 Pat Name: ADAM NICHOLAS Department: Room: 531 Gender: M Boom Pump Operator: Gretchen Abraham : 1960 Requested By: MARVA LAMAS Order Number: [id number] Reading MD: Nicol Londono MD Measurements Intervals [place] Rate: 120 P: 61 DC: 145 QRS: -59 QRSD: 134 T: 89 QT: 334 QTc: 472 Interpretive Statements Sinus tachycardia RBBB and LAFB Probable LVH with secondary repol abnrm ST elevation, consider inferior injury Baseline wander in lead(s) I,II,III,aVR,aVL,aVF Compared to ECG 12/30/2018 19:46:12 ST (T wave) deviation now present Myocardial infarct finding now present Sinus rhythm no longer present Electronically Signed On 01-10-2019 11:44:52 PDT by Nicol Londono MD CM:EKGRPT:ELECTROCARDIOGRAM REPORT [id number] MARVA WASSERMAN DRAFT REPORT MARVA LAMAS DO
--- NOTE | ~2019-01-07 | CON ---
[place], [place] REPORT OF CONSULTATION NAME: ADAM NICHOLAS UNIT #: [id number] ROOM: 531 DOCTOR: AMERICA GONZALEZHEMANT BIRTHDATE: [birth year] DOS: 01/09/2019 REASON FOR CONSULTATION: Cough and shortness of breath. HISTORY OF PRESENT ILLNESS: A 58-year-old very well known to me. The patient was recently admitted to the hospital for sob, was discharged on , 01/04/2019. The patient is having increasing shortness of breath and cough and fever. Also, complains of some shortness of breath. Because of his known history of coronary artery disease, he has been consulted. Right now, he does have some pleuritic chest pain and shortness of breath. No nausea, no vomiting. PAST MEDICAL HISTORY: Significant for coronary artery disease, chronic renal failure, diabetes mellitus, history of CVA, dyslipidemia, tachycardia, TIA. PAST SURGICAL HISTORY: History of appendectomy, cholecystectomy, history of bypass surgery in 2016, also coronary artery stent placement. SOCIAL HISTORY: Does not drink alcohol. The patient quit smoking about recently, he smoked very heavy 1 to 5 packs per day for 48 years. FAMILY HISTORY: Positive for coronary artery disease. ALLERGIES: SEROQUEL. HOME MEDICATIONS: Aspirin, atorvastatin, clopidogrel, insulin, trazodone. REVIEW OF SYSTEMS: CONSTITUTIONAL: Reports fever and chills. HEENT: No visual disturbances. CARDIOVASCULAR: Denies any chest pain. RESPIRATORY: As per HPI. He does have shortness of breath. GASTROINTESTINAL: Denies abdominal pain. GENITOURINARY: No dysuria. NEUROLOGIC: Stable. ENDOCRINE: Intact. SKIN: Normal. PHYSICAL EXAMINATION: VITAL SIGNS: Blood pressure is 97/69. The patient is in sinus rhythm. GENERAL: He is alert, awake, oriented. HEENT: Unremarkable. NECK: Supple, no JVD. LUNGS: Diminished breath sounds. HEART: Sounds are regular. NEUROLOGICAL: Stable. LABORATORY DATA: Sodium 138, potassium 4.4, creatinine is 1.4, hemoglobin 14, hematocrit was normal. Electrolytes are normal. Troponin is 0.029. I reviewed the echocardiogram showed an excellent ejection fraction. Hemoglobin 9.7, hematocrit 32.4. Liver functions are normal. [place], [place] REPORT OF CONSULTATION NAME: ADAM NICHOLAS UNIT #: [id number] ROOM: 531 DOCTOR: AMERICA GONZALEZ,HEMANT BIRTHDATE: [birth year] IMPRESSION: Probable septicemia, pneumonitis, history of diastolic heart failure, mildly elevated troponin, probably type 2 demand because of the renal insufficiency and tachycardia. RECOMMENDATIONS: Continue the present medication. Echo reviewed. Continue with a podiatric consult, IV antibiotics and I will follow up. HEMANT CROSS MD CM:CONSTR:REPORT OF CONSULTATION 0721 01/16/19 0805 interface
--- NOTE | ~2019-01-07 | EKG ---
[place], [place] ELECTROCARDIOGRAM REPORT NAME: ADAM NCIHOLAS UNIT #: [id number] ROOM: 531 DOCTOR: BILLY DRAFT REPORT BIRTHDATE: [birth year] [facility] Test Date: 2019-01-07 Test Time: 23:31:07 Pat Name: ADAM NICHOLAS Department: Room: 531 Gender: M Cdc Associate: Gretchen Abraham : 1960 Requested By: VAIBAHV GONZALEZ Order Number: [id number] Reading MD: Nicol Londono MD Measurements Intervals [place] Rate: 100 P: 60 NM: 162 QRS: -53 QRSD: 139 T: 36 QT: 387 QTc: 500 Interpretive Statements Sinus tachycardia RBBB and LAFB Left ventricular hypertrophy Compared to ECG 12/30/2018 19:46:12 Sinus rhythm no longer present Electronically Signed On 01-10-2019 11:45:13 PDT by Nicol Londono MD CM:EKGRPT:ELECTROCARDIOGRAM REPORT [id number] 1145 VAIBHAV WASSERMAN DRAFT REPORT VAIBHAV GONZALEZ DO
--- NOTE | ~2019-01-07 | EKG ---
[place], [place] ELECTROCARDIOGRAM REPORT NAME: ADAM NICHOLAS UNIT #: [id number] ROOM: 531 DOCTOR: BILLY DRAFT REPORT BIRTHDATE: [birth year] [facility] Test Date: 2019-01-08 Test Time: 01:55:38 Pat Name: ADAM NICHOLAS Department: Room: 531 Gender: M City Tax Auditor: Gretchen Abraham : 1960 Requested By: VAIBHAV GONZALEZ Order Number: [id number] Reading MD: Nicol Londono MD Measurements Intervals [place] Rate: 84 P: 80 [place]: 173 QRS: -46 QRSD: 142 T: 58 QT: 445 QTc: 527 Interpretive Statements Sinus rhythm Multiple premature complexes, vent \T\ supraven Probable left atrial enlargement RBBB and LAFB Artifact in lead(s) I Compared to ECG 12/30/2018 19:46:12 Left ventricular hypertrophy no longer present Electronically Signed On 01-10-2019 11:45:30 PDT by Nicol Londono MD CM:EKGRPT:ELECTROCARDIOGRAM REPORT [id number] 1145 VAIBHAV WASSERMAN DRAFT REPORT VAIBHAV GONZALEZ DO
[2019-01-07 19:27] VITALS: BP 111/63
[2019-01-07 20:10] LABS: BASO % 0.2 % (0.0-1.0); EOS # 0.3 10*3/uL (0.0-0.4); EOS % 2.7 % (1.0-4.0); HEMATOCRIT 33.6 % (42.0-52.0); HEMOGLOBIN 10.4 g/dl (14.0-18.0); LYMPH % 17.4 % (27.0-41.0); MEAN CELL VOLUME 80.4 fl (80.0-94.0); MEAN CORPUSCULAR HGB 24.9 pg (27.0-31.0); MEAN PLATELET VOLUME 10.9 fl (9.6-12.3); MONO # 1.1 10*3/uL (0.1-1.0); MONO % 9.3 % (3.0-9.0); NEUT # 7.9 10*3/uL (2.3-7.9); NEUT % 69.6 % (47.0-73.0); PLATELET COUNT AUTOMATED 295 10*3/uL (130-400); RED BLOOD COUNT 4.18 10*6/uL (4.50-5.90); RED CELL DISTRI WIDTH 19.1 % (0-14.5); WHITE BLOOD COUNT 11.4 10*3/uL (4.8-10.8)
[2019-01-07 20:19] VITALS: BP 110/68
[2019-01-07 20:28] VITALS: BP 96/70
[2019-01-07 20:31] LABS: ALBUMIN 2.8 gm/dl (3.1-4.5); ALKALINE PHOSPHATASE 134 U/L (45-117); BUN 16 mg/dl (7-24); CHLORIDE 98 mmol/L (98-107); CREATININE 1.37 mg/dL (0.70-1.30); POTASSIUM 4.3 mmol/L (3.5-5.1); SGOT/AST 15 IU/L (3-35); SGPT/ALT 24 U/L (12-78); SODIUM 137 mmol/L (136-145); TOTAL PROTEIN 7.1 gm/dL (6.4-8.2)
[2019-01-07 20:39] LABS: TROPONIN I 0.275 ng/ml (<0.045)
--- NOTE | 2019-01-07 20:40 | NUR ---
DR. LAMAS AWARE OF CRITICAL TROPONIN RESULT 0.275 CALLED BY LAB.
[2019-01-07 21:24] VITALS: BP 104/46
[2019-01-07 21:32] VITALS: BP 106/68
[2019-01-07 22:10] VITALS: BP 94/52
--- NOTE | 2019-01-07 23:40 | NUR ---
PT. NOT ON FLOOR YET. CALLED DR. Familia GONZALEZ WITH TROPONIN RESULTS; NO NEW ORDERS RECEIVED.
--- NOTE | 2019-01-07 23:55 | NUR ---
A 58, admitted to , under the services of EFRAIN Carrero DO with a diagnosis of PRODUCTIVE COUGH, WHEEZING, VOMITING & DIARRHEA FOR 3 - 4 DAYS. Chief complaint is VOMITING, DIARRHEA, COUGH. Patient arrived via stretcher from ER. Monitor applied. Initial assessment completed. Vital signs taken and recorded. EFRAIN CARRERO DO notified of admission to the unit. Orders received. See assessment for past medical history, medications and allergies. Patient and/or family oriented to unit. [facility] visitation policy reviewed. Clothing/patient valuable form completed. KAYKAY COLEMAN
[2019-01-08] VITALS: BP 102/68
--- NOTE | 2019-01-08 02:15 | NUR ---
ADAM NICHOLAS [id number] Please refer to the physician's history and physical for past medical history, comorbid conditions, and allergies. Diagnosis: CHF HYPERGLYCEMIA Dion Score: 15,AT RISK WOUND DESCRIPTIONS: Location of the wound: left great toe medial aspect distal Thickness: Full Size: 1.7cm x 1.0cm x <0.1cm Tunneling: none Undermining: none Sinus Tract: none Presence of Exudate: None Amount: none Color: Brown, yellow Odor: None Periwound Skin Appearance: Erythema Wound edges: defined and attached Pain (associated with wound): tender to touch How does patient state this happened? pt stated he had these areas for about 3 months and is following with Dr. Kebede. Location of the wound:left great toe medial aspect proximal Thickness: Full Size: 0.7cm x 0.9cm x <0.1cm Tunneling: none Undermining: none Sinus Tract: none Presence of Exudate: none Amount: None Color: Brown, yellow Odor: None Periwound Skin Appearance: erythema Wound edges: defined and attached Pain (associated with wound): tender to touch How does patient state this happened? pt stated he had these areas for about 3 months and if following with Dr. Kebede. Location of the wound: left medial aspect of heel Thickness: Full Size: 0.5cm x 0.5cm x <0.1cm Tunneling: none Undermining: none Sinus Tract: none Presence of Exudate: none Amount: None Color: Brown, yellow Odor: None Periwound Skin Appearance: Normal Wound edges: defined and attached Pain (associated with wound): tender to touch How does patient state this happened? pt stated he had these areas for about 3 months and is following with Dr. Kebede. Location of the wound: lateral aspect of left 5th toe Thickness: Full Size: 2.0cm x 2.2cm x <0.1cm Tunneling: none Undermining: none Sinus Tract: none Presence of Exudate: none Amount: None Color: Black, yellow Odor: None Periwound Skin Appearance: erythema Wound edges: defined and attached Pain (associated with wound): tender to touch How does patient state this happened? pt stated he had these areas for about 3 months and if following with Dr. Kebede. Location of the wound: plantar aspect below left 4th toe Thickness: Full Size: 0.4cm x 0.2cm x <0.1cm Tunneling: none Undermining: none Sinus Tract: none Presence of Exudate: none Amount: None Color: Brown, yellow Odor: None Periwound Skin Appearance: Normal Wound edges: defined and attached Pain (associated with wound): none at time of assessment How does patient state this happened? pt stated he had these areas for about 3 months and is following with Dr. Kebede. Patient's bilateral pedal pulses are faint to touch. Patient stated he had a procedure done with Dr. Kebede since his last admission her to our facility he is unsure of what the procedure was and when it was done. Spoke with Dr. Melvin regarding this and she stated that we need to obtain his records this nurse informed Pat who is the nursing caring for patient of this request. Surface the patient is resting on: Isoflex SKIN PREVENTION RECOMMENDATION: 1. Pressure redistribution support surface as appropriate 2. Elevate heels 3. Remove boots/TEDS every shift and reapply 4. Head of bed 30 degrees as tolerated 5. Assess nutrition and hydration 6. Manage moisture 7. Avoid the use of containment devices while in bed 8. Use absorptive products on surfaces limit layers of linens on bed 9. Turn and reposition every 1-2 hours in bed and every 1 hour in chair as tolerated 10. Weight shifts every 15 minutes while up in chair 11. Offloading with pillows or device to keep heels elevated off bed 12. Monitor skin at least every shift 13. Inspect under medical devices twice a day WOUND TREATMENT RECOMMENDATIONS: Full thickness guidelines: Cleanse left great toe medial aspect distal, left great toe medial aspect proximal, left medial aspect of heel,lateral aspect of left 5th toe and plantar aspect below left 4th toe with betadine and apply dsd daily. Heel raiser pro boots while in bed to bilateral feet. Left foot x-ray due to non-healing wounds. Podiatry consult due to non-healing wounds if studies suggest possible debridement. If unable to obtain records from Dr. Lucas's office venous and arterial studies to BLE's due to non-healing wounds.
--- NOTE | 2019-01-08 04:00 | NUR ---
RESTING IN BED WITH EYES CLOSED. CALL LIGHT WITHIN REACH.
--- NOTE | 2019-01-08 05:22 | NUR ---
MEDICATED WITH TYLENOL FOR C/O LEFT FOOT PAIN.
[2019-01-08 05:29] LABS: BILIRUBIN NEGATIVE (NEGATIVE); BLOOD NEGATIVE (NEGATIVE); CLARITY CLEAR (CLEAR); COLOR YELLOW (YELLOW); GLUCOSE 3+ (NEGATIVE); KETONE NEGATIVE (NEGATIVE); LEUKO ESTERASE TRACE (NEGATIVE); NITRITE NEGATIVE (NEGATIVE); PH 5.5 (5.0-9.0); SPECIFIC GRAVITY 1.015 (1.005-1.030); UROBILINOGEN 0.2 E.U./dl (0.2-1.0)
[2019-01-08 05:53] LABS: BACTERIA 2+; WBC 51-100 wbc/hpf (0-5)
[2019-01-08 05:53] LABS: BASO % 0.3 % (0.0-1.0); EOS # 0.3 10*3/uL (0.0-0.4); HEMATOCRIT 32.4 % (42.0-52.0); HEMOGLOBIN 9.7 g/dl (14.0-18.0); LYMPH # 2.2 10*3/uL (1.3-4.4); LYMPH % 18.9 % (27.0-41.0); MEAN CELL VOLUME 81.8 fl (80.0-94.0); MEAN CORPUSCULAR HGB 24.5 pg (27.0-31.0); MEAN CORPUSCULAR HGB CONC 29.9 g/dl (33.0-37.0); MEAN PLATELET VOLUME 11.1 fl (9.6-12.3); MONO # 1.1 10*3/uL (0.1-1.0); MONO % 9.3 % (3.0-9.0); NEUT # 7.7 10*3/uL (2.3-7.9); NEUT % 67.4 % (47.0-73.0); PLATELET COUNT AUTOMATED 288 10*3/uL (130-400); RED BLOOD COUNT 3.96 10*6/uL (4.50-5.90); RED CELL DISTRI WIDTH 19.3 % (0-14.5); WHITE BLOOD COUNT 11.4 10*3/uL (4.8-10.8)
[2019-01-08 06:00] LABS: ALBUMIN 2.6 gm/dl (3.1-4.5); ALKALINE PHOSPHATASE 124 U/L (45-117); BUN 18 mg/dl (7-24); CHLORIDE 99 mmol/L (98-107); CHOLESTEROL 113 mg/dL (<200); CREATININE 1.42 mg/dL (0.70-1.30); FREE T4 0.94 ng/dl (0.76-1.46); HDL CHOLESTEROL 36 mg/dl (40-60); LDL CHOLESTEROL 19 mg/dL (9-159); PHOSPHOROUS 4.4 mg/dL (2.5-4.9); POTASSIUM 4.4 mmol/L (3.5-5.1); SGOT/AST 14 IU/L (3-35); SGPT/ALT 20 U/L (12-78); SODIUM 138 mmol/L (136-145); TOTAL PROTEIN 6.7 gm/dL (6.4-8.2); TRIGLYCERIDES 290 mg/dl (<150); VLDL CHOLESTEROL 58 mg/dL (6-40)
[2019-01-08 06:02] LABS: TROPONIN I 0.296 ng/ml (<0.045)
[2019-01-08 06:05] LABS: THYROID STIM HORMONE (HS) 0.566 uIU/ml (0.358-4.75)
[2019-01-08 07:34] LABS: VITAMIN D, 25-HYDROXY 27.6 ng/mL (30-100)
[2019-01-08 08:00] VITALS: BP 98/68
--- NOTE | 2019-01-08 08:12 | NUR ---
CONSULT CALLED TO DR GLOVER RESIDENT AT THIS TIME, NO NEW ORDERS RECIEVED.
--- NOTE | 2019-01-08 10:54 | NUR ---
CONSULT CALLED TO DR HERNÁNDEZ ANSWERING SERVICE AT THIS TIME. AWAITING CALL BACK
--- NOTE | 2019-01-08 11:09 | NUR ---
SPOKE TO DR CROSS REGARDING NEW CONSULT, HE STATES THE PATIENT IS WELL KNOWN TO HIM AND TO SCHEDULE AN ECHO, HE WAS INFORMED BY THIS RN THAT AN ECHO WAS OBTAINED THIS MORNING. NO NEW ORDERS RECIEVED
[2019-01-08 12:00] VITALS: BP 97/69
--- NOTE | 2019-01-08 13:21 | NUR ---
Sudha Cottrell MACHINE GUIDE BASE WINDER notified of wound care recommendations.
--- NOTE | 2019-01-08 14:07 | NUR ---
Electron Tube Assembler in to talk to patient. Patient states lives at HOME with AND DAUGHTER. There are SEVERAL steps in the home. Physician: HAILEY [facility]acy: [facility] Home health services: [facility] Patient's level of ADLs: MINIMAL ASSIST Patient has working utilities: YES DME: [facility] Follow-up physician's appointment after d/c: WILL BE MADE BY HOSPITALIST NURSE DIRECTOR ON DISCHARGE Does patient want to access PORTAL?: NO Discharge plan PT STATES HE LIVES AT HOME WITH FAMILY. PLANS TO RETURN HOME WITH [facility] PREVIOUSLY. DENIES ANY OTHER NEEDS AT THIS TIME. WILL CONTINUE TO FOLLOW. STATES HE WILL HAVE A RIDE HOME ON DISCHARGE.. ELISEO ZARAGOZA
[2019-01-08 16:00] VITALS: BP 102/86
[2019-01-08 20:00] VITALS: BP 96/54
--- NOTE | 2019-01-08 22:34 | NUR ---
MEDICATED WITH TYLENOL FOR C/O LEFT FOOT PAIN RATED A 7/10.
[2019-01-09] VITALS: BP 88/61
--- NOTE | 2019-01-09 | NUR ---
RESTING IN BED WITH EYES CLOSED. TYLENOL APPARENTLY EFFECTIVE.
--- NOTE | 2019-01-09 02:49 | NUR ---
MEDICATED WITH NORCO FOR C/O LEFT FOOT PAIN RATED A 7/10.
--- NOTE | 2019-01-09 06:00 | NUR ---
VOICES NO C/O AT THIS TIME; NORCO APPARENTLY EFFECTIVE. BLOOD SUGAR 303; COVERAGE GIVEN PER EMAR.
[2019-01-09 08:00] VITALS: BP 90/50
--- NOTE | 2019-01-09 11:38 | NUR ---
PT C/O PAIN TO LEFT FOOT OF 04/02. NORCO GIVEN AT THIS TIME. WILL CONT TO MONITOR. CALL LIGHT IN REACH.
[2019-01-09 12:00] VITALS: BP 90/60
--- NOTE | 2019-01-09 12:38 | NUR ---
DEJAN EFF. WILL CONT TO MONITOR. CALL LIGHT IN REACH.
--- NOTE | 2019-01-09 13:23 | NUR ---
TALKED WITH PT ABOUT DISCHARGE PLANS. HE STATES HE WANTS TO GO HOME WITH [facility]UMPT[facility] OF [facility].
[2019-01-09 16:00] VITALS: BP 119/54; BP 83/57
[2019-01-09 20:00] VITALS: BP 99/64
--- NOTE | 2019-01-09 20:00 | NUR ---
MEDICATED WITH NORCO FOR C/O LEFT FOOT PAIN.
--- NOTE | 2019-01-09 22:30 | NUR ---
VOICES NO C/O PAIN AT THIS TIME. NORCO APPARENTLY EFFECTIVE.
--- NOTE | 2019-01-09 23:00 | NUR ---
BLOOD SUGAR 260; COVERAGE GIVEN PER EMAR.
[2019-01-10] VITALS: BP 88/57
--- NOTE | 2019-01-10 06:00 | NUR ---
BLOOD SGUAR 248; INSULIN GIVEN PER EMAR. ALSO MEDICATED WITH FOR C/O LEFT FOOT PAIN. CALL LIGHT WITHIN REACH.
[2019-01-10] MEDS ORDERED: TESSALON PERLE100 M1 PO (09:28)
[2019-01-10] MEDS ORDERED: ZITHROMAX500 MG PO (09:29)
[2019-01-10] MEDS ORDERED: HUMALOG100 UNIT/1 SQ (09:39)
--- NOTE | 2019-01-10 09:49 | NUR ---
PT MEDICATED WITH TYLENOL FOR HEADACHE PAIN.
--- NOTE | 2019-01-10 10:31 | NUR ---
Discharge instructions reviewed with patient/family. Patient receptive and verbalizes understanding. Follow-up care arranged. Written instructions given to patient/family. MICHAEL BOLES
--- NOTE | 2019-01-10 10:53 | NUR ---
PT DISCHARGED AT THIS TIME WITH BROTHER IN LAW TO HOME.
[2019-05-16] MEDS ORDERED: FUROSEMIDE20 M1 PO (23:35)
[2019-05-16] MEDS ORDERED: VITAMIN D50000 UNIT PO (23:36)
[2019-05-16] MEDS ORDERED: TYLENOL WITH C1 EACH PO (23:37)
== END 2019-01-10 10:50 | disposition home health service (06) | DRG 194 ==
LOC: ED 19:25 → 5E 22:24 → EDHOLD 22:24 → 5E 22:38
PROVIDERS: Emergency Medicine; Internal Medicine; ADMIT Internal Medicine
DX: J18.9 Pneumonia, unspecified organism (principal); I24.8 Other forms of acute ischemic heart disease; J44.0 Chronic obstructive pulmonary disease with (acute) lower respiratory infection; I50.9 Heart failure, unspecified; N18.3 Chronic kidney disease, stage 3 (moderate); E10.65 Type 1 diabetes mellitus with hyperglycemia; K21.9 Gastro-esophageal reflux disease without esophagitis; G25.81 Restless legs syndrome; I25.10 Atherosclerotic heart disease of native coronary artery without angina pectoris; F41.9 Anxiety disorder, unspecified; E78.2 Mixed hyperlipidemia; E10.22 Type 1 diabetes mellitus with diabetic chronic kidney disease; E10.51 Type 1 diabetes mellitus with diabetic peripheral angiopathy without gangrene; S91.302A Unspecified open wound, left foot, initial encounter; Z86.73 Personal history of transient ischemic attack (TIA), and cerebral infarction without residual deficits; Z90.49 Acquired absence of other specified parts of digestive tract; Z95.5 Presence of coronary angioplasty implant and graft; Z87.891 Personal history of nicotine dependence; Z82.49 Family history of ischemic heart disease and other diseases of the circulatory system; Z83.3 Family history of diabetes mellitus; Z80.9 Family history of malignant neoplasm, unspecified; Z88.1 Allergy status to other antibiotic agents; Z88.6 Allergy status to analgesic agent; Z88.8 Allergy status to other drugs, medicaments and biological substances; Z79.82 Long term (current) use of aspirin; Z79.4 Long term (current) use of insulin; Z79.899 Other long term (current) drug therapy; X58.XXXA Exposure to other specified factors, initial encounter; Y93.89 Activity, other specified; Y92.89 Other specified places as the place of occurrence of the external cause; Y99.8 Other external cause status

== ENCOUNTER 2019-01-27 14:46 | Emergency (ER) | payer OTHER ==
[~2019-01-27] VITALS: Ht 170.1 cm; Wt 79.4 kg
[~2019-01-27 14:46] MED LIST changes: +ZITHROMAX500 MG PO
[2019-05-16] MEDS ORDERED: FUROSEMIDE20 M1 PO (23:35)
[2019-05-16] MEDS ORDERED: VITAMIN D50000 UNIT PO (23:36)
[2019-05-16] MEDS ORDERED: TYLENOL WITH C1 EACH PO (23:37)
== END 2019-01-27 15:07 | disposition left against medical advice (07) ==
LOC: ED 14:46
DX: R19.7 Diarrhea, unspecified (principal); Z53.21 Procedure and treatment not carried out due to patient leaving prior to being seen by health care provider

== ENCOUNTER 2019-03-09 20:10 | Emergency (ER) | payer OTHER ==
[~2019-03-09] VITALS: Ht 170.1 cm; Wt 74.8 kg
--- NOTE | ~2019-03-09 | EKG ---
[place], [place] ELECTROCARDIOGRAM REPORT NAME: ADAM NICHOLAS UNIT #: [id number] ROOM: DOCTOR: EPIPHANY DRAFT REPORT BIRTHDATE: [birth year] [facility] Test Date: 2019-03-09 Test Time: 20:14:01 Pat Name: ADAM NICHOLAS Department: ER Room: Gender: Continuing Education Director: : 1960 Requested By: MARVA LAMAS Order Number: [id number] Reading MD: Jarred Gomez MD Measurements Intervals [place] Rate: 113 P: 72 [place]: 178 QRS: -11 QRSD: 98 T: 143 QT: 331 QTc: 454 Interpretive Statements Sinus tachycardia Probable left atrial enlargement Abnormal T, consider ischemia, lateral leads Compared to ECG 01/08/2019 01:55:38 T-wave abnormality now present Possible ischemia now present Sinus rhythm no longer present Left anterior fascicular block no longer present Right bundle-branch block no longer present Electronically Signed On 03-13-2019 14:27:26 PDT by Jarred Gomez MD CM:EKGRPT:ELECTROCARDIOGRAM REPORT 13 [id number] MARVA WASSERMAN DRAFT REPORT MARVA LAMAS DO
--- NOTE | ~2019-03-09 | EKG ---
[place], [place] ELECTROCARDIOGRAM REPORT NAME: ADAM NICHOLAS UNIT #: [id number] ROOM: DOCTOR: EPIPHANY DRAFT REPORT BIRTHDATE: [birth year] [facility] Test Date: 2019-03-09 Test Time: 22:39:11 Pat Name: ADAM NICHOLAS Department: ER Room: Gender: Supply Specialist: Gretchen Abraham : 1960 Requested By: MARVA LAMAS Order Number: [id number] Reading MD: Jarred Gomez MD Measurements Intervals [place] Rate: 99 P: 62 [place]: 189 QRS: -15 QRSD: 100 T: 111 QT: 369 QTc: 474 Interpretive Statements Sinus rhythm Probable left atrial enlargement Borderline left axis deviation Nonspecific T abnormalities, lateral leads Compared to ECG 01/08/2019 01:55:38 T-wave abnormality now present Left anterior fascicular block no longer present Right bundle-branch block no longer present Electronically Signed On 03-13-2019 14:27:44 PDT by Jarred Gomez MD CM:EKGRPT:ELECTROCARDIOGRAM REPORT 1427 MARVA WASSERMAN DRAFT REPORT MARVA LAMAS DO
[2019-03-09 20:44] LABS: BASO # 0.1 10*3/uL (0.0-0.1); BASO % 0.8 % (0.0-1.0); EOS # 0.3 10*3/uL (0.0-0.4); EOS % 2.9 % (1.0-4.0); HEMATOCRIT 34.3 % (42.0-52.0); HEMOGLOBIN 10.1 g/dl (14.0-18.0); LYMPH # 3.2 10*3/uL (1.3-4.4); LYMPH % 26.7 % (27.0-41.0); MEAN CELL VOLUME 82.7 fl (80.0-94.0); MEAN CORPUSCULAR HGB 24.3 pg (27.0-31.0); MEAN CORPUSCULAR HGB CONC 29.4 g/dl (33.0-37.0); MEAN PLATELET VOLUME 11.1 fl (9.6-12.3); MONO # 1.3 10*3/uL (0.1-1.0); MONO % 10.7 % (3.0-9.0); NEUT # 6.9 10*3/uL (2.3-7.9); NEUT % 58.5 % (47.0-73.0); PLATELET COUNT AUTOMATED 264 10*3/uL (130-400); RED BLOOD COUNT 4.15 10*6/uL (4.50-5.90); RED CELL DISTRI WIDTH 17.6 % (0-14.5); WHITE BLOOD COUNT 11.8 10*3/uL (4.8-10.8)
[2019-03-09 21:00] LABS: ALKALINE PHOSPHATASE 130 U/L (45-117); BUN 26 mg/dl (7-24); CHLORIDE 104 mmol/L (98-107); CREATININE 1.84 mg/dL (0.70-1.30); POTASSIUM 5.4 mmol/L (3.5-5.1); SGOT/AST 32 IU/L (3-35); SGPT/ALT 22 U/L (12-78); SODIUM 139 mmol/L (136-145); TOTAL PROTEIN 7.1 gm/dL (6.4-8.2)
[2019-03-09 21:07] LABS: TROPONIN I < 0.015 ng/ml (<0.045)
[2019-03-09 21:24] LABS: ACT PARTIAL THROMBO TIME 23.9 SECONDS (20.0-32.1); INTERNATIONAL NORM RATIO 0.9 (2.0-3.5)
[2019-05-16] MEDS ORDERED: FUROSEMIDE20 M1 PO (23:35)
[2019-05-16] MEDS ORDERED: VITAMIN D50000 UNIT PO (23:36)
[2019-05-16] MEDS ORDERED: TYLENOL WITH C1 EACH PO (23:37)
== END 2019-03-09 23:46 | disposition home or self-care (01) ==
LOC: ED 20:10
PROVIDERS: Emergency Medicine
DX: R07.9 Chest pain, unspecified (principal); R06.02 Shortness of breath; R11.0 Nausea; R10.32 Left lower quadrant pain; E78.2 Mixed hyperlipidemia; J44.9 Chronic obstructive pulmonary disease, unspecified; I25.10 Atherosclerotic heart disease of native coronary artery without angina pectoris; K21.9 Gastro-esophageal reflux disease without esophagitis; E11.22 Type 2 diabetes mellitus with diabetic chronic kidney disease; N18.3 Chronic kidney disease, stage 3 (moderate); Z88.1 Allergy status to other antibiotic agents; Z88.6 Allergy status to analgesic agent; Z88.8 Allergy status to other drugs, medicaments and biological substances; Z79.899 Other long term (current) drug therapy; Z79.82 Long term (current) use of aspirin; Z87.891 Personal history of nicotine dependence; Z86.718 Personal history of other venous thrombosis and embolism; Z86.73 Personal history of transient ischemic attack (TIA), and cerebral infarction without residual deficits

== ENCOUNTER → 2019-03-29 | Outpatient (CLI) | payer OTHER ==
[~2019-03-29] MED LIST changes: +BASAG SOL SC; +FUROSEMIDE20 M1 PO
== END | disposition home or self-care (01) ==
LOC: RAD 15:13
DX: T23.221A Burn of second degree of single right finger (nail) except thumb, initial encounter (principal); Y92.89 Other specified places as the place of occurrence of the external cause

== ENCOUNTER 2019-04-19 00:29 | Emergency (ER) | payer OTHER ==
[~2019-04-19] VITALS: Ht 170.1 cm; Wt 78.9 kg
[~2019-04-19 00:29] MED LIST changes: -BASAG SOL SC; -FUROSEMIDE20 M1 PO
[2019-05-16] MEDS ORDERED: FUROSEMIDE20 M1 PO (23:35)
[2019-05-16] MEDS ORDERED: VITAMIN D50000 UNIT PO (23:36)
[2019-05-16] MEDS ORDERED: TYLENOL WITH C1 EACH PO (23:37)
== END 2019-04-19 01:46 | disposition home or self-care (01) ==
LOC: ED 00:29
DX: G89.29 Other chronic pain (principal); M79.604 Pain in right leg; M79.605 Pain in left leg; Z87.891 Personal history of nicotine dependence; Z90.49 Acquired absence of other specified parts of digestive tract; Z98.890 Other specified postprocedural states; Z95.1 Presence of aortocoronary bypass graft; Z95.5 Presence of coronary angioplasty implant and graft; Z79.899 Other long term (current) drug therapy; Z79.82 Long term (current) use of aspirin; Z79.4 Long term (current) use of insulin; Z88.8 Allergy status to other drugs, medicaments and biological substances; Z88.1 Allergy status to other antibiotic agents; Z88.6 Allergy status to analgesic agent

== ENCOUNTER 2019-05-05 21:04 | Emergency (ER) | payer OTHER ==
[~2019-05-05] VITALS: Ht 170.1 cm; Wt 79.4 kg
[2019-05-05] MEDS ORDERED: BASAG SOL SC (21:22)
[2019-05-16] MEDS ORDERED: FUROSEMIDE20 M1 PO (23:35)
[2019-05-16] MEDS ORDERED: VITAMIN D50000 UNIT PO (23:36)
[2019-05-16] MEDS ORDERED: TYLENOL WITH C1 EACH PO (23:37)
== END 2019-05-05 23:53 | disposition home or self-care (01) ==
LOC: ED 21:04
DX: R07.89 Other chest pain (principal); F17.200 Nicotine dependence, unspecified, uncomplicated; Z88.8 Allergy status to other drugs, medicaments and biological substances; Z88.1 Allergy status to other antibiotic agents; Z88.6 Allergy status to analgesic agent; Z79.899 Other long term (current) drug therapy; Z79.4 Long term (current) use of insulin; Z79.82 Long term (current) use of aspirin; Z90.49 Acquired absence of other specified parts of digestive tract; Z95.1 Presence of aortocoronary bypass graft; Z98.890 Other specified postprocedural states

== ENCOUNTER → 2019-06-18 | Outpatient (CLI) | payer OTHER ==
[~2019-06-18] MED LIST changes: +BASAG SOL SC; +FUROSEMIDE20 M1 PO
[2019-06-18 16:50] LABS: BILIRUBIN NEGATIVE (NEGATIVE); BLOOD NEGATIVE (NEGATIVE); CLARITY CLEAR (CLEAR); COLOR YELLOW (YELLOW); GLUCOSE NEGATIVE (NEGATIVE); KETONE NEGATIVE (NEGATIVE); LEUKO ESTERASE 2+ (NEGATIVE); NITRITE NEGATIVE (NEGATIVE); PH 5.5 (5.0-9.0); UROBILINOGEN 0.2 E.U./dl (0.2-1.0)
[2019-06-18 17:03] LABS: HEMATOCRIT 38.6 % (42.0-52.0); HEMOGLOBIN 11.7 g/dl (14.0-18.0)
[2019-06-18 17:09] LABS: BACTERIA 1+; EPITHELIAL CELLS 31-40; WBC 16-20 wbc/hpf (0-5)
[2019-06-18 17:10] LABS: ALBUMIN 2.8 gm/dl (3.1-4.5); CREATININE 1.56 mg/dL (0.70-1.30); POTASSIUM 4.2 mmol/L (3.5-5.1)
[2019-06-18 18:20] LABS: URINE CREATININE RANDOM 52.8 mg/dL
== END | disposition home or self-care (01) ==
LOC: LAB 16:06
PROVIDERS: Internal Medicine Nephrology
DX: N18.3 Chronic kidney disease, stage 3 (moderate) (principal)

== ENCOUNTER 2019-07-11 16:06 | Inpatient (IN) | payer OTHER ==
[~2019-07-11] VITALS: Ht 170.1 cm; Wt 82.6 kg
--- NOTE | ~2019-07-11 | CON ---
[place], [place] REPORT OF CONSULTATION NAME: ADAM NICHOLAS UNIT #: [id number] ROOM: 519 DOCTOR: SHANIKA EBRG MD BIRTHDATE: [birth year] DOS: 07/12/2019 CHIEF COMPLAINT: Pain over the left great toe. HISTORY OF PRESENT ILLNESS: This is a 59-year-old male with poorly controlled diabetes and multiple hospitalizations because of his foot ulcers, which have been necrotic and with no recent debridement done. He has undergone multiple vascular interventions, but he continues to smoke and failed his graft and stents and is not following with Vascular Surgery anymore. He has a consumer experience consultant Dr. Orozco whom he has been seeing almost every month. At this time, he is presenting because he has increased pain over his toes and he has some subjective chills. On presentation, he had a high blood glucose. His ESR is 100. CRP is more than 9. He has been started on linezolid plus meropenem and ID has been consulted for further management. He denies having any trauma to his foot. PAST MEDICAL HISTORY: Significant for anxiety disorder, atrial fibrillation, coronary artery disease, CKD, COPD, diabetes, stroke. Past infectious disease history, he has seen Dr. Mcbride in the past and on review of the old records, it was found that he has been on chronic suppression for chronic osteomyelitis of the sternum when he had a sternal dehiscence and osteomyelitis in 2016 and he has been off doxycycline since 2017. PAST SURGICAL HISTORY: Significant for appendectomy, bilateral carotid endarterectomy and CABG in 2016. Intravascular stent placement. SOCIAL HISTORY: Smoker, nonalcoholic, illicit drug use. FAMILY HISTORY: Mother of aneurysm, malignant neoplasm. Father had history of [place], cardiac disease, diabetes. ALLERGIES: VANCOMYCIN CAUSING DIARRHEA, TRAMADOL CAUSING ITCHING AND SEROQUEL CAUSING ITCHING. HOME MEDICATIONS: Reviewed. REVIEW OF SYSTEMS: A 12-point review of systems has been done. Pertinent negative positive has been included in HPI, rest are noncontributory. PHYSICAL EXAMINATION: GENERAL: The patient is alert and oriented x3, in mild distress. HEENT: Atraumatic, normocephalic. PERRLA. EOMI. RESPIRATORY: Air entry bilaterally equal. No wheeze or crackles. CARDIOVASCULAR: S1 and S2 normal. No murmurs, rubs or gallop. ABDOMEN: Soft, nontender, nondistended. Bowel sounds present. EXTREMITIES: Left great toe necrotic fifth toe has a very small ulcer on the lateral aspect with a fibrotic base. No drainage; however, the great toe ulcer has a scar that is unstageable. Minimal surrounding redness. Decreased sensation as well as pulses. [place], [place] REPORT OF CONSULTATION NAME: ADAM NICHOLAS UNIT #: [id number] ROOM: [employer] DOCTOR: SHANIKA BERG MD BIRTHDATE: [birth year] LABORATORY DATA AND IMAGING: Reviewed, mentioned in HPI. ASSESSMENT AND PLAN: 1. Left great toe dry gangrene. Other diabetic foot ulcer over the fifth toe. 2. Uncontrolled diabetes. 3. Peripheral vascular disease. 4. Active smoker. PLAN: At this time, the patient has been started on linezolid plus meropenem. He has a history of VANCOMYCIN ALLERGY, which was probably not a true allergy causing diarrhea. Discontinue linezolid. Start back on vancomycin. He has a relatively high ESR and CRP. Okay to continue IV vancomycin and meropenem for next 24-48 hours to ensure that the blood cultures are also negative as he was having subjective chills. At this time, he has a chronic issue with nonhealing ulcers over his heel, great toe that can get secondarily infected. The whole question at this time is, is his toe viable and whether he will benefit from amputation. I would recommend vascular consult. Podiatry is following as well. We will follow the patient closely. Thank you for your consult. Please call for any questions. Shanika Berg MD CM:CONSTR:REPORT OF CONSULTATION 1140 07/12/19 1525 interface
--- NOTE | ~2019-07-11 | EKG ---
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1960 Requested By: BRIT REESE Order Number: [id number] Reading MD: Irvin Ladd Measurements Intervals [place] Rate: 100 P: 75 LA: 179 QRS: -18 QRSD: 93 T: 133 QT: 364 QTc: 470 Interpretive Statements Sinus tachycardia Borderline left axis deviation Nonspecific T abnormalities, lateral leads Baseline wander in lead(s) V4 Compared to ECG 05/17/2019 01:38:36 T-wave abnormality now present Sinus rhythm no longer present Left anterior fascicular block no longer present Right bundle-branch block no longer present Electronically Signed On 07-13-2019 12:04:37 PDT by Irvin Ladd CM:EKGRPT:ELECTROCARDIOGRAM REPORT [id number] BRIT WASSERMAN DRAFT REPORT BRIT REESE DO
[2019-07-11 16:07] VITALS: BP 105/62
[2019-07-11 16:41] LABS: BASO # 0.1 10*3/uL (0.0-0.1); BASO % 0.7 % (0.0-1.0); EOS # 0.3 10*3/uL (0.0-0.4); EOS % 2.3 % (1.0-4.0); HEMATOCRIT 34.7 % (42.0-52.0); HEMOGLOBIN 10.9 g/dl (14.0-18.0); LYMPH # 2.4 10*3/uL (1.3-4.4); LYMPH % 17.5 % (27.0-41.0); MEAN CORPUSCULAR HGB 26.4 pg (27.0-31.0); MEAN CORPUSCULAR HGB CONC 31.4 g/dl (33.0-37.0); MEAN PLATELET VOLUME 10.5 fl (9.6-12.3); MONO # 1.3 10*3/uL (0.1-1.0); MONO % 9.4 % (3.0-9.0); NEUT # 9.3 10*3/uL (2.3-7.9); NEUT % 69.3 % (47.0-73.0); PLATELET COUNT AUTOMATED 295 10*3/uL (130-400); RED BLOOD COUNT 4.13 10*6/uL (4.50-5.90); WHITE BLOOD COUNT 13.5 10*3/uL (4.8-10.8)
[2019-07-11 16:52] LABS: ACT PARTIAL THROMBO TIME 28.5 SECONDS (20.0-32.1)
[2019-07-11 17:05] LABS: ALBUMIN 2.6 gm/dl (3.1-4.5); ALKALINE PHOSPHATASE 151 U/L (45-117); BUN 29 mg/dl (7-24); CHLORIDE 101 mmol/L (98-107); LIPASE 191 U/L (73-393); POTASSIUM 4.6 mmol/L (3.5-5.1); SGOT/AST 7 IU/L (3-35); SGPT/ALT 14 U/L (12-78); SODIUM 134 mmol/L (136-145); TOTAL PROTEIN 7.6 gm/dL (6.4-8.2)
[2019-07-11 17:06] LABS: TROPONIN I < 0.015 ng/ml (<0.045)
--- NOTE | 2019-07-11 19:32 | NUR ---
SCABS TO BILATERAL HANDS FROM OLD CIGARETTE GUTIERREZ PER PT.
[2019-07-11 19:36] VITALS: BP 124/73
--- NOTE | 2019-07-11 20:00 | NUR ---
PT RESTING IN BED FRIENDS AND FAMILY IN ROOM WAITING ON NUMBER TO TAKE PT TO FLOOR
--- NOTE | 2019-07-11 20:38 | NUR ---
stil have not gotten number to call pt to floor
[2019-07-11 20:45] VITALS: BP 124/74
--- NOTE | 2019-07-11 20:45 | NUR ---
A 59, admitted to 5E, under the services of KAITLIN Narayanan DO with a diagnosis of SEVERE SEPSIS, CELLULITIS OF LEFT FOOT. Chief complaint is LEFT FOOT PAIN. Patient arrived via ambulatory from ER. Monitor applied. Initial assessment completed. Vital signs taken and recorded. KAITLIN NARAYANAN DO notified of admission to the unit. Orders received. See assessment for past medical history, medications and allergies. Patient and/or family oriented to unit. visitation policy reviewed. Clothing/patient valuable form completed. DESHAUN CARRENO
[2019-07-11] MEDS ORDERED: GLUCOTROL10 MG PO (21:08)
[2019-07-11] MEDS ORDERED: FUROSEMIDE20 M1 PO (21:09)
[2019-07-11] MEDS ORDERED: TOPROL XL25 MG PO (21:09)
--- NOTE | 2019-07-11 21:47 | NUR ---
PATIENT MEDICATED WITH MORPHINE 2MG FOR COMPLAINTS OF LEFT FOOT PAIN. WILL CONTINUE TO MONITOR.
[2019-07-12] VITALS: BP 96/58
--- NOTE | 2019-07-12 03:10 | NUR ---
PATIENT MEDICATED WITH NORCO FOR COMPLAINTS OF LEFT FOOT PAIN. WILL CONTINUE TO MONITOR.
--- NOTE | 2019-07-12 05:01 | NUR ---
ADAM NICHOLAS [id number] Please refer to the physician's history and physical for past medical history, comorbid conditions, and allergies. Diagnosis: SEVERE SEPSIS CELLULITIS OF LEFT FOOT Dion Score: 22,LOW OR NO RISK WOUND DESCRIPTIONS: Wound Number: 1 Location of the wound: Left great toe Type of wound: unstageable Thickness: Full Size: 3.5cm x 5.0cm x <0.1cm Tunneling: none Undermining: none Sinus Tract: none Presence of Exudate: Serosanguineous Amount: Light Color: Black, red Odor: None Periwound Skin Appearance: Erythema Wound edges: approximated Pain (associated with wound): tender to touch How does patient state this happened? pt stated these are ongoing and he follows with Dr. Cece haynes at [facility]. pt stated he has very little feeling in his hands and feet. Wound Number: 2 Location of the wound: Left lateral 5th toe Type of wound: unstageable Thickness: Full Size: 0.8cm x 0.5cm x 0.8cm Tunneling: none Undermining: none Sinus Tract: none Presence of Exudate: Serosanguineous Amount: Light Color: Yellow, red Odor: None Periwound Skin Appearance: Erythema Wound edges: approximated Pain (associated with wound): tender to touch How does patient state this happened? pt stated these are ongoing and he follows with Dr. Cece haynes at [facility]. pt stated he has very little feeling in his hands and feet. Wound Number: 3 Location of the wound: right heel distal Type of wound: unstageable Thickness: Full Size: 1.5cm x 1.5cm x <0.1cm Tunneling: none Undermining: none Sinus Tract: none Presence of Exudate: none Amount: none Color: Yellow, brown Odor: None Periwound Skin Appearance: Erythema Wound edges: approximated Pain (associated with wound): tender to touch How does patient state this happened? pt stated these are ongoing and he follows with Dr. Cece haynes at [facility]. pt stated he has very little feeling in his hands and feet. Wound Number: 4 Location of the wound: right heel proximal Type of wound: Stage 1 Size: 0.5cm x 0.5cm x <0.1cm Tunneling: none Undermining: none Sinus Tract: none Presence of Exudate: none Amount: none Color: red Odor: None Periwound Skin Appearance: Erythema Wound edges: approximated Pain (associated with wound): tender to touch How does patient state this happened? pt stated these are ongoing and he follows with Dr. Cece haynes at [facility]. pt stated he has very little feeling in his hands and feet. Wound Number: 5 Location of the wound: left calf Type of wound: burn Thickness: Full Size: 1.2cm x 0.9cm x <0.1cm Tunneling: none Undermining: none Sinus Tract: none Presence of Exudate: none Amount: none Color: red, yellow, brown Odor: None Periwound Skin Appearance: Erythema Wound edges: approximated Pain (associated with wound): tender to touch How does patient state this happened? pt stated these are ongoing and he follows with Dr. Cece haynes at [facility]. pt stated he has very little feeling in his hands and feet. Wound Number: 6 Location of the wound: top of left foot Type of wound: stage 2 Thickness: Partial Size: 1.4cm x 0.4cm x <0.1cm Tunneling: none Undermining: none Sinus Tract: none Presence of Exudate: serosanguneious Amount: light Color: red Odor: None Periwound Skin Appearance: Erythema Wound edges: approximated Pain (associated with wound): tender to touch How does patient state this happened? pt stated these are ongoing and he follows with Dr. Cece haynes at [facility]. pt stated he has very little feeling in his hands and feet. Wound Number: 7 Location of the wound: right great toe Type of wound: unstageble Thickness: Full Size: 0.3cm x 0.2cm x <0.1cm Tunneling: none Undermining: none Sinus Tract: none Presence of Exudate: none Amount: none Color: red/brown Odor: None Periwound Skin Appearance: Erythema Wound edges: approximated Pain (associated with wound): tender to touch How does patient state this happened? pt stated these are ongoing and he follows with Dr. Cece haynes at [facility]. pt stated he has very little feeling in his hands and feet. Wound Number: 8 Location of the wound: left index finger Type of wound: burn Thickness: Full Size: 0.6cm x 0.6cm x <0.1cm Tunneling: none Undermining: none Sinus Tract: none Presence of Exudate: none Amount: none Color: yellow/brown Odor: None Periwound Skin Appearance: Erythema Wound edges: approximated Pain (associated with wound): tender to touch How does patient state this happened? pt stated he burnt himself from smoking. Wound Number: 9 Location of the wound: right index finger Type of wound: burn Thickness: Full Size: 0.8cm x 0.4cm x <0.1cm Tunneling: none Undermining: none Sinus Tract: none Presence of Exudate: none Amount: none Color: yellow, brown, red Odor: None Periwound Skin Appearance: Erythema Wound edges: approximated Pain (associated with wound): tender to touch How does patient state this happened? pt stated he burnt himself from smoking. Wound Number: 10 Location of the wound: right middle finger Type of wound: burn Thickness: Full Size: 1.0cm x 0.6cm x <0.1cm Tunneling: none Undermining: none Sinus Tract: none Presence of Exudate: none Amount: none Color: yellow, brown, red Odor: None Periwound Skin Appearance: Erythema Wound edges: approximated Pain (associated with wound): tender to touch How does patient state this happened? pt stated he burnt himself from smoking. Wound Number: 11 Location of the wound: right ring finger Type of wound: scab Thickness: Partial Size: 0.4cm x 0.2cm x <0.1cm Tunneling: none Undermining: none Sinus Tract: none Presence of Exudate: none Amount: none Color: yellow, brown, red Odor: None Periwound Skin Appearance: Erythema Wound edges: approximated Pain (associated with wound): tender to touch How does patient state this happened? pt stated he burnt himself from smoking. Surface the patient is resting on: Isoflex SKIN PREVENTION RECOMMENDATION: 1. Pressure redistribution support surface as appropriate 2. Elevate heels 3. Remove boots/TEDS every shift and reapply 4. Head of bed 30 degrees as tolerated 5. Assess nutrition and hydration 6. Manage moisture 7. Avoid the use of containment devices while in bed 8. Use absorptive products on surfaces limit layers of linens on bed 9. Turn and reposition every 1-2 hours in bed and every 1 hour in chair as tolerated 10. Weight shifts every 15 minutes while up in chair 11. Offloading with pillows or device to keep heels elevated off bed 12. Monitor skin at least every shift 13. Inspect under medical devices twice a day WOUND TREATMENT RECOMMENDATIONS: Podiatry and ID are already on consult. Venous and arterial studies to BLE's due to non-healing wounds. Cleanse right ring finger, right middle finger, right index finger, left index finger with nss and apply sureprep around the wound therahoney to wound bed and cover with bandaid daily and prn for soiling. Cleanse left great toe, left lateral 5th toe, right heel proximal, right heel distal, left calf, top of left foot, and right great toe with betadine and cover with dsd until evaluated by podiatry.
--- NOTE | 2019-07-12 05:27 | NUR ---
DR. KIM'S RESIDENT NOTIFIED OF CONSULT FOR DIABETIC ULCER OF LEFT GREAT TOE.
--- NOTE | 2019-07-12 05:30 | NUR ---
'S ANSWERING SERVICE NOTIFIED OF CONSULT FOR LEFT GREAT TOE CELLULITIS.
--- NOTE | 2019-07-12 06:10 | NUR ---
PATIENT MEDICATED WITH MORPHINE FOR COMPLAINTS OF LEFT LEG PAIN. WILL CONTINUE TO MONITOR.
[2019-07-12 06:25] LABS: BASO # 0.1 10*3/uL (0.0-0.1); BASO % 0.7 % (0.0-1.0); EOS # 0.3 10*3/uL (0.0-0.4); EOS % 2.6 % (1.0-4.0); HEMATOCRIT 31.9 % (42.0-52.0); HEMOGLOBIN 9.7 g/dl (14.0-18.0); LYMPH # 2.4 10*3/uL (1.3-4.4); LYMPH % 20.8 % (27.0-41.0); MEAN CELL VOLUME 84.4 fl (80.0-94.0); MEAN CORPUSCULAR HGB 25.7 pg (27.0-31.0); MEAN CORPUSCULAR HGB CONC 30.4 g/dl (33.0-37.0); MEAN PLATELET VOLUME 10.8 fl (9.6-12.3); MONO # 1.3 10*3/uL (0.1-1.0); MONO % 11.2 % (3.0-9.0); NEUT # 7.4 10*3/uL (2.3-7.9); PLATELET COUNT AUTOMATED 261 10*3/uL (130-400); RED BLOOD COUNT 3.78 10*6/uL (4.50-5.90); RED CELL DISTRI WIDTH 21.2 % (0-14.5); WHITE BLOOD COUNT 11.5 10*3/uL (4.8-10.8)
[2019-07-12 06:47] LABS: ALBUMIN 2.3 gm/dl (3.1-4.5); CREATININE 1.51 mg/dL (0.70-1.30); PHOSPHOROUS 3.9 mg/dL (2.5-4.9); POTASSIUM 4.9 mmol/L (3.5-5.1); TOTAL PROTEIN 6.6 gm/dL (6.4-8.2)
[2019-07-12 07:29] LABS: VITAMIN D, 25-HYDROXY 30.3 ng/mL (30-100)
[2019-07-12 08:00] VITALS: BP 100/70
--- NOTE | 2019-07-12 08:42 | NUR ---
CALLED IN AND STATED THAT PT HAS "SHAKING SPELLS" IN THE MIDDLE OF THE NIGHT AND SHE WANTED TO MAKE US AWARE AND ASKED THAT I NOTIFY THE DOCTOR. DR CAMPO NOTIFIED.
--- NOTE | 2019-07-12 09:02 | NUR ---
C/O PAIN OF 8/10 TO LEFT FOOT. NORCO GIVEN AT THIS TIME. WILL CONT TO MONITOR. CALL LIGHT IN REACH.
--- NOTE | 2019-07-12 10:02 | NUR ---
PT STATES PAIN HAS DECREASED TO 5/10 AFTER NORCO. WILL CONT TO MONITOR. CALL LIGHT IN REACH.
--- NOTE | 2019-07-12 10:16 | NUR ---
Dr. Mcdonough notified of wound care recommendations.
--- NOTE | 2019-07-12 11:00 | NUR ---
Format Proofreader in to talk to patient. Patient states lives at home with his . There are 12 steps in the home. Physician: Kaleb Akbar Pharmacy: [facility] Home health services: none Patient's level of ADLs: MINIMAL ASSIST Patient has working utilities: yes DME: cane, walker, nebulizer Follow-up physician's appointment after d/c: will be made by the hospitalist nurse director upon discharge Does patient want to access PORTAL?: no Discharge plan discussed with patient. He is sitting on the edge of his bed without distress noted. He lives at home with his . He is independent with his ADLs and ambulates with either a walker or a cane. Discussed home health care services and he denies any home needs at this time. When medically stable he will be discharged to home. His [id number] will transport on discharge. EDIL SMITH
--- NOTE | 2019-07-12 14:23 | NUR ---
C/O PAIN OF 8/10 TO LEFT FOOT. NORCO GIVEN AT THIS TIME. WILL CONT TO MONITOR. CALL LIGHT IN REACH.
--- NOTE | 2019-07-12 15:23 | NUR ---
PT STATES PAIN DECREASED TO 5/10 AFTER NORCO. WILL CONT TO MONITOR. CALL LIGHT IN REACH.
--- NOTE | 2019-07-12 15:28 | NUR ---
PHYSICAL THERAPY Physical therapy evaluation only complete, 5E. Full evaluation/details to follow. Low complexity PT evaluation (98485) per chart review and evaluation. Recommend continued mobility throughout room. No PT needs at this time. Thank you. Charlene Lezama,PT,DPT
[2019-07-12 16:00] VITALS: BP 139/72
--- NOTE | 2019-07-12 17:22 | NUR ---
RECEIVED NEW ORDERS FROM DR OSBORNE TO DISCHARGE PT TO [facility].
--- NOTE | 2019-07-12 17:48 | NUR ---
REPORT CALLED TO MARYA AT [facility]. ADMITTING DOCTOR IS DR LAMBERT.
[2019-07-12 20:00] VITALS: BP 91/45
--- NOTE | 2019-07-12 22:02 | NUR ---
PATIENT LEFT HOSPITAL AT THIS TIME WITH EMS TO GO TO [facility].
== END 2019-07-12 22:02 | disposition short-term general hospital (02) | DRG 871 ==
LOC: ED 16:06 → 5E 18:52 → EDHOLD 18:52 → 5E 19:34
PROVIDERS: Emergency Medicine; Internal Medicine; ADMIT Internal Medicine
DX: A41.9 Sepsis, unspecified organism (principal); N17.0 Acute kidney failure with tubular necrosis; E43 Unspecified severe protein-calorie malnutrition; L03.116 Cellulitis of left lower limb; E87.1 Hypo-osmolality and hyponatremia; K86.1 Other chronic pancreatitis; E10.52 Type 1 diabetes mellitus with diabetic peripheral angiopathy with gangrene; I96 Gangrene, not elsewhere classified; R65.20 Severe sepsis without septic shock; N18.3 Chronic kidney disease, stage 3 (moderate); G25.81 Restless legs syndrome; E10.65 Type 1 diabetes mellitus with hyperglycemia; F41.9 Anxiety disorder, unspecified; I25.10 Atherosclerotic heart disease of native coronary artery without angina pectoris; J44.9 Chronic obstructive pulmonary disease, unspecified; E10.22 Type 1 diabetes mellitus with diabetic chronic kidney disease; E78.2 Mixed hyperlipidemia; E55.9 Vitamin D deficiency, unspecified; D50.9 Iron deficiency anemia, unspecified; I48.2 Chronic atrial fibrillation; K21.9 Gastro-esophageal reflux disease without esophagitis; E10.621 Type 1 diabetes mellitus with foot ulcer; L97.529 Non-pressure chronic ulcer of other part of left foot with unspecified severity; F17.210 Nicotine dependence, cigarettes, uncomplicated; Z71.6 Tobacco abuse counseling; Z86.73 Personal history of transient ischemic attack (TIA), and cerebral infarction without residual deficits; I25.2 Old myocardial infarction; Z90.49 Acquired absence of other specified parts of digestive tract; Z68.28 Body mass index [BMI] 28.0-28.9, adult; Z95.1 Presence of aortocoronary bypass graft; Z95.820 Peripheral vascular angioplasty status with implants and grafts; Z79.02 Long term (current) use of antithrombotics/antiplatelets; Z79.4 Long term (current) use of insulin; Z79.82 Long term (current) use of aspirin; Z79.899 Other long term (current) drug therapy; Z88.8 Allergy status to other drugs, medicaments and biological substances; Z82.49 Family history of ischemic heart disease and other diseases of the circulatory system; Z83.3 Family history of diabetes mellitus

== ENCOUNTER 2019-07-21 19:33 | Emergency (ER) | payer OTHER ==
--- NOTE | ~2019-07-21 | EKG ---
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
[~2019-07-21 19:33] MED LIST changes: +GLUCOTROL10 MG PO
[2019-07-21 20:25] LABS: BILIRUBIN NEGATIVE (NEGATIVE); BLOOD 1+ (NEGATIVE); CLARITY SL CLOUDY (CLEAR); COLOR YELLOW (YELLOW); GLUCOSE 2+ (NEGATIVE); KETONE NEGATIVE (NEGATIVE); LEUKO ESTERASE NEGATIVE (NEGATIVE); NITRITE NEGATIVE (NEGATIVE); PH 6.5 (5.0-9.0); SPECIFIC GRAVITY 1.015 (1.005-1.030); UROBILINOGEN 0.2 E.U./dl (0.2-1.0)
[2019-07-21 20:33] LABS: URINE AMPHETAMINES < 1000 (1000ng/ml); URINE BARBITURATES < 200 (200ng/ml); URINE BENZODIAZEPINES < 200 (200ng/ml); URINE CANNABINOIDS (THC) < 50 (50ng/ml); URINE COCAINE < 300 (300ng/ml); URINE METHADONE < 300 (300ng/ml); URINE OPIATES < 300 (300ng/ml)
[2019-07-21 20:34] LABS: URINE PHENCYCLIDINE < 25 (25ng/ml)
[2019-07-21 20:45] LABS: WBC 16-20 wbc/hpf (0-5)
[2019-07-21 20:46] LABS: BACTERIA 1+; RBC 41-50 rbc/hpf (0-2)
[2019-07-21 20:52] LABS: HEMOGLOBIN 8.1 g/dl (14.0-18.0)
[2019-07-21 21:03] LABS: ACT PARTIAL THROMBO TIME 29.5 SECONDS (20.0-32.1)
[2019-07-21 21:08] LABS: ALBUMIN 2.1 gm/dl (3.1-4.5); CREATININE 1.98 mg/dL (0.70-1.30); TOTAL PROTEIN 6.7 gm/dL (6.4-8.2)
[2019-07-21 21:11] LABS: POTASSIUM 6.8 mmol/L (3.5-5.1)
[2019-07-21 21:12] LABS: TROPONIN I 0.177 ng/ml (<0.045)
[2019-07-21 21:17] LABS: BASO # 0.1 10*3/uL (0.0-0.1); BASO % 0.5 % (0.0-1.0); EOS # 0.1 10*3/uL (0.0-0.4); EOS % 1.1 % (1.0-4.0); HEMATOCRIT 26.3 % (42.0-52.0); LYMPH # 1.1 10*3/uL (1.3-4.4); LYMPH % 8.6 % (27.0-41.0); MEAN CELL VOLUME 85.9 fl (80.0-94.0); MEAN CORPUSCULAR HGB 26.5 pg (27.0-31.0); MEAN CORPUSCULAR HGB CONC 30.8 g/dl (33.0-37.0); MEAN PLATELET VOLUME 10.9 fl (9.6-12.3); MONO # 0.5 10*3/uL (0.1-1.0); MONO % 4.1 % (3.0-9.0); NEUT # 10.9 10*3/uL (2.3-7.9); NEUT % 82.9 % (47.0-73.0); PLATELET COUNT AUTOMATED 311 10*3/uL (130-400); RED BLOOD COUNT 3.06 10*6/uL (4.50-5.90); RED CELL DISTRI WIDTH 20.5 % (0-14.5); WHITE BLOOD COUNT 13.1 10*3/uL (4.8-10.8)
[2019-07-21 21:24] LABS: MICROCYTOSIS SLIGHT; PLATELET SUFFICIENCY NORMAL (NORMAL); TOTAL CELLS COUNTED 100 #CELLS
== END 2019-07-21 22:10 | disposition short-term general hospital (02) ==
LOC: ED 19:33
PROVIDERS: Emergency Medicine Emergency Medical Services
DX: I46.9 Cardiac arrest, cause unspecified (principal); I48.91 Unspecified atrial fibrillation; I25.10 Atherosclerotic heart disease of native coronary artery without angina pectoris; E11.22 Type 2 diabetes mellitus with diabetic chronic kidney disease; N18.3 Chronic kidney disease, stage 3 (moderate); K21.9 Gastro-esophageal reflux disease without esophagitis; F17.210 Nicotine dependence, cigarettes, uncomplicated; Z79.4 Long term (current) use of insulin; Z88.1 Allergy status to other antibiotic agents; Z88.6 Allergy status to analgesic agent; Z88.8 Allergy status to other drugs, medicaments and biological substances; Z79.899 Other long term (current) drug therapy; Z79.82 Long term (current) use of aspirin; Z86.73 Personal history of transient ischemic attack (TIA), and cerebral infarction without residual deficits; Z86.718 Personal history of other venous thrombosis and embolism